=== PATIENT | female | born 1980 | race Caucasian/White ===

== ENCOUNTER 2020-04-14 09:51 | Outpatient (REF) | payer MEDICARE, MEDICAID, SELFPAY | END 2020-04-14 09:52 | disposition home or self-care (01) | LOC: HO.MRI 09:51 | PROVIDERS: PCP Internal Medicine; Visit Provider Internal Medicine Gastroenterology | DX: N28.9 Disorder of kidney and ureter, unspecified (principal) ==

== ENCOUNTER 2020-06-20 12:55 | Outpatient (REF) | payer MEDICARE, MEDICAID, SELFPAY ==
[2020-06-20 13:27] LABS: MANUAL DIFF FLAG NO
[2020-06-20 13:29] LABS: Basophils Percent Auto 0.2 % (0-2); Eosinophils Absolute Auto 0.1 X10*3/uL (0.0-0.4); Hematocrit 39.4 % (37-47); Hemoglobin 13.5 g/dl (12.0-16.0); Imm Gran Pct Auto 0.8 % (0.0-0.4); Lymphocytes Percent Auto 24.9 % (20-40); Mean Corpuscular HGB Conc 34.3 g/dl (31.0-35.0); Mean Corpuscular Hemoglobin 28.6 pg (27.0-33.0); Mean Corpuscular Volume 83.5 fL (80-98); Mean Platelet Volume 9.6 fL (9.4-12.3); Monocytes Absolute Auto 0.6 X10*3/uL (0.1-1.2); Monocytes Percent Auto 5.1 % (2-11); Neutrophils Absolute Auto 8.3 X10*3/uL (2.0-8.3); Platelet Count 303 X10*3/uL (160-400); Red Blood Count 4.72 X10*6/uL (4.20-5.50); White Blood Count 12.2 X10*3/uL (4.8-10.8)
[2020-06-20 13:52] LABS: INTERNATIONAL NORM RATIO 1.1 (0.9-1.1); Prothrombin Time 12.8 SEC (10.8-13.0)
[2020-06-20 14:04] LABS: Alanine Aminotransferase 35 U/L (0-31); Albumin Level 3.8 g/dL (3.5-5.0); Alkaline Phosphatase 87 U/L (39-117); Anion Gap 11 (12-20); Aspartate Amino Transferase 40 U/L (5-31); Bilirubin Total 0.4 mg/dL (0.0-1.0); Blood Urea Nitrogen 10 mg/dL (9-16); Calcium 8.6 mg/dL (8.4-10.2); Carbon Dioxide 25 mmol/L (22-29); Chloride 107 mmol/L (96-108); Estimated Glomerular Filt Rate > 60; Glucose Random 158 mg/dL (60-115); Potassium 3.9 mmol/l (3.3-5.1); Sodium 139 mmol/L (135-145); Total Protein 6.7 g/dL (6.5-8.0)
== END 2020-06-20 12:56 | disposition home or self-care (01) ==
LOC: HO.LAB 12:55
PROVIDERS: PCP Internal Medicine; Visit Provider Internal Medicine Gastroenterology
DX: K75.81 Nonalcoholic steatohepatitis (NASH) (principal); N28.9 Disorder of kidney and ureter, unspecified; R10.32 Left lower quadrant pain
CPT/HCPCS: 36415; 80053; 85025; 85610

== ENCOUNTER 2020-06-23 10:18 | Outpatient (REF) | payer MEDICARE, MEDICAID, SELFPAY ==
--- NOTE | 2020-06-23 10:21 | CT_ITS ---
EXAMINATION: CT ABDOMEN AND PELVIS WITHOUT AND WITH CONTRAST CLINICAL INFORMATION: Rubio, kidney lesion and left lower quadrant pain COMPARISON: Previous abdominal ultrasound most recent January [address] of the abdomen and pelvis most recent August 2019 TECHNIQUE: Multidetector volumetric imaging was performed of the abdomen and pelvis before and after the IV administration of 85 mL of Omnipaque 350 intravenous contrast. Sagittal and coronal reformatted images were obtained on the technologist's workstation. This CT examination was performed using dose optimization techniques as appropriate, variously including the following: *Automated exposure control *Adjustment of mA and/or kV according to patient size (this includes techniques or standardized protocols for targeted exams where dose is matched to indication/reason for exam; i.e. extremities or head) *Use of iterative reconstruction technique DLP: 1979 mGy-cm FINDINGS: LUNG BASES: The visualized lung bases are unremarkable. LIVER, GALLBLADDER, AND BILIARY TREE: The liver is low in attenuation suggestive of fatty infiltration. Liver is enlarged, right lobe measuring 24 cm in length. No focal liver lesion is seen. The gallbladder is unremarkable. PANCREAS: Unremarkable SPLEEN: The spleen is upper normal in size measuring 12.7 cm in length. ADRENAL GLANDS: Unremarkable KIDNEYS AND URETERS: There is a small 1 to 2 mm nonobstructing stone in the lower pole of the left kidney. There is a 1.2 cm lesion exophytic to the upper pole of the left kidney. Hounsfield units precontrast measure 12. Hounsfield units postcontrast measure 64 suggestive of a solid enhancing lesion. This is unchanged from previous exams going back to February 2019.. The right kidney is unremarkable. BLADDER: Not optimally distended. GASTROINTESTINAL TRACT: There is mild diverticulosis of the colon. No evidence of diverticulitis is seen. The small and large bowel are otherwise unremarkable. The appendix is unremarkable. ABDOMINAL WALL: No significant hernia is appreciated. There is a soft tissue nodule in the subcutaneous fat of the lower left pelvis measuring 1.1 cm axial image 89 series 6 that is stable. LYMPH NODES: There are small retroperitoneal lymph nodes that are stable. No enlarged lymph nodes are seen. VASCULAR: Unremarkable PELVIC VISCERA: There is an IUD in the uterus in satisfactory position. OSSEOUS STRUCTURES: There are mild degenerative changes of the spine. CT/CT abdomen pelvis wo/w con IMPRESSION: Enlarged fatty liver. Stable 1.2 cm left renal lesion. Small left lower pole renal stone. Mild diverticulosis of the colon. No evidence of diverticulitis.
[2020-06-23] MEDS: iohexoL 350 MG/ML 100 ML INFUS..BTL IV (11:20)
== END 2020-06-23 10:19 | disposition home or self-care (01) ==
LOC: HO.CT 10:18
PROVIDERS: Visit Provider Internal Medicine Gastroenterology
DX: K75.81 Nonalcoholic steatohepatitis (NASH) (principal); N28.9 Disorder of kidney and ureter, unspecified
CPT/HCPCS: 74178; Q9967

== ENCOUNTER 2020-08-04 10:36 | Outpatient (REF) | payer MEDICARE, MEDICAID, SELFPAY ==
[2020-08-04 11:08] LABS: MANUAL DIFF FLAG NO
[2020-08-04 11:14] LABS: Basophils Absolute Auto 0.1 X10*3/uL (0.0-0.2); Basophils Percent Auto 0.5 % (0-2); Eosinophils Absolute Auto 0.1 X10*3/uL (0.0-0.4); Eosinophils Percent Auto 0.7 % (0-4); Hematocrit 40.6 % (37-47); Hemoglobin 13.5 g/dl (12.0-16.0); Imm Gran Abs Auto 0.09 X10*3/uL (0.00-0.03); Imm Gran Pct Auto 0.8 % (0.0-0.4); Lymphocytes Absolute Auto 2.7 X10*3/uL (1.2-4.9); Lymphocytes Percent Auto 23.1 % (20-40); Mean Corpuscular HGB Conc 33.3 g/dl (31.0-35.0); Mean Corpuscular Hemoglobin 28.2 pg (27.0-33.0); Mean Corpuscular Volume 84.9 fL (80-98); Mean Platelet Volume 9.4 fL (9.4-12.3); Monocytes Absolute Auto 0.5 X10*3/uL (0.1-1.2); Monocytes Percent Auto 4.1 % (2-11); Neutrophils Absolute Auto 8.4 X10*3/uL (2.0-8.3); Neutrophils Percent Auto 70.8 % (45-73); Platelet Count 324 X10*3/uL (160-400); Red Blood Count 4.78 X10*6/uL (4.20-5.50); Red Cell Distribution Width 13.2 % (11.0-16.0); White Blood Count 11.8 X10*3/uL (4.8-10.8)
[2020-08-04 11:49] LABS: Alanine Aminotransferase 38 U/L (0-31); Albumin Level 3.8 g/dL (3.5-5.0); Alkaline Phosphatase 88 U/L (39-117); Anion Gap 10 (12-20); Aspartate Amino Transferase 35 U/L (5-31); Bilirubin Total 0.6 mg/dL (0.0-1.0); Blood Urea Nitrogen 10 mg/dL (9-16); Calcium 8.7 mg/dL (8.4-10.2); Carbon Dioxide 26 mmol/L (22-29); Chloride 105 mmol/L (96-108); Estimated Glomerular Filt Rate > 60; Glucose Random 124 mg/dL (60-115); Potassium 4.3 mmol/l (3.3-5.1); Sodium 137 mmol/L (135-145); Total Protein 6.8 g/dL (6.5-8.0)
== END 2020-08-04 10:37 | disposition home or self-care (01) ==
LOC: HO.LAB 10:36
PROVIDERS: PCP Internal Medicine; Visit Provider Internal Medicine Gastroenterology
DX: N28.9 Disorder of kidney and ureter, unspecified (principal); K75.81 Nonalcoholic steatohepatitis (NASH)
CPT/HCPCS: 36415; 80053; 85025

== ENCOUNTER → 2020-09-05 10:36 | Outpatient (BNVA) | payer MEDICARE, MEDICAID, SELFPAY | PROVIDERS: Visit Provider Internal Medicine Gastroenterology | DX: Z76.89 Persons encountering health services in other specified circumstances (principal) | CPT/HCPCS: 99202; Q3014 ==

== ENCOUNTER 2021-03-05 | Outpatient (REF) | payer MEDICARE, MEDICAID, SELFPAY ==
--- NOTE | ~2021-03-05 | CT_ITS ---
EXAMINATION: CT ABDOMEN AND PELVIS WITHOUT AND WITH CONTRAST CLINICAL INFORMATION: Disorders of kidney and ureter. COMPARISON: None TECHNIQUE: Multidetector volumetric imaging was performed of the abdomen and pelvis before and after the IV administration of 100 mL of Omnipaque 300 intravenous contrast. Sagittal and coronal reformatted images were obtained on the technologist's workstation. This CT examination was performed using dose optimization techniques as appropriate, variously including the following: *Automated exposure control *Adjustment of mA and/or kV according to patient size (this includes techniques or standardized protocols for targeted exams where dose is matched to indication/reason for exam; i.e. extremities or head) *Use of iterative reconstruction technique DLP: 1564 mGy-cm FINDINGS: LUNG BASES: The visualized lung bases are unremarkable. LIVER, GALLBLADDER, AND BILIARY TREE: The liver is normal in size, shape, and attenuation. No focal hepatic lesion or biliary ductal dilatation is present. The gallbladder is unremarkable with no evidence of radiopaque gallstones, gallbladder wall thickening, or obvious pericholecystic inflammatory changes. PANCREAS: Unremarkable SPLEEN: Unremarkable ADRENAL GLANDS: Unremarkable KIDNEYS AND URETERS: The kidneys are normal in size, shape, and attenuation. Postcontrast there is symmetrical bilateral nephrograms without any enhancing renal mass, cyst or hydronephrosis. There is good opacification of both ureters which are normal caliber. No intraluminal filling defect or narrowing seen. BLADDER: Partially opacified bladder appears unremarkable. GASTROINTESTINAL TRACT: There is scattered stool and gas seen throughout the colon without any significant distention. The small bowel loops are normal caliber. The appendix is normal caliber. ABDOMINAL WALL: No significant hernia is appreciated. LYMPH NODES: There are scattered retroperitoneal lymph nodes with the largest lymph node measuring 1.5 cm. VASCULAR: Unremarkable PELVIC VISCERA: The uterus is anteverted with an IUD well located within the endometrial canal. There is a 2.8 x 2.5 cm lesion right adnexa likely complex ovarian cyst measuring 34 Hounsfield units. OSSEOUS STRUCTURES: There are degenerative endplate spondylosis. No lytic or sclerotic process seen. The soft tissues are normal. CT/CT abdomen pelvis wo/w con IMPRESSION: 1. Complex right ovarian cyst. IUD well located within the anteverted uterus. 2. Mild constipation. 3. No radiopaque urolith or enhancing renal mass or hydroureteronephrosis.
[2021-03-05] MEDS: iohexoL 350 MG/ML 100 ML INFUS..BTL 85 ML IV (16:17)
== END 2021-03-05 00:01 | disposition home or self-care (01) ==
LOC: HO.CT
PROVIDERS: PCP Internal Medicine; Visit Provider Urology
DX: N28.9 Disorder of kidney and ureter, unspecified (principal)
CPT/HCPCS: 74178; Q9967

== ENCOUNTER → 2021-03-28 14:07 | Outpatient (BNVA) | payer MEDICARE, MEDICAID, SELFPAY | PROVIDERS: PCP Internal Medicine; Visit Provider Internal Medicine Gastroenterology | DX: Z13.89 Encounter for screening for other disorder (principal) | CPT/HCPCS: Q3014 ==

== ENCOUNTER 2021-04-12 07:49 | Outpatient (REF) | payer MEDICARE, MEDICAID, SELFPAY ==
[2021-04-12 08:11] LABS: MANUAL DIFF FLAG NO
[2021-04-12 08:24] LABS: Basophils Absolute Auto 0.1 X10*3/uL (0.0-0.2); Basophils Percent Auto 0.5 % (0-2); Eosinophils Absolute Auto 0.1 X10*3/uL (0.0-0.4); Eosinophils Percent Auto 0.9 % (0-4); Hematocrit 39.8 % (37-47); Hemoglobin 13.4 g/dl (12.0-16.0); Imm Gran Abs Auto 0.07 X10*3/uL (0.00-0.03); Imm Gran Pct Auto 0.7 % (0.0-0.4); Lymphocytes Absolute Auto 2.6 X10*3/uL (1.2-4.9); Lymphocytes Percent Auto 25.4 % (20-40); Mean Corpuscular HGB Conc 33.7 g/dl (31.0-35.0); Mean Corpuscular Hemoglobin 28.3 pg (27.0-33.0); Mean Corpuscular Volume 84.1 fL (80-98); Mean Platelet Volume 9.5 fL (9.4-12.3); Monocytes Absolute Auto 0.5 X10*3/uL (0.1-1.2); Monocytes Percent Auto 5.4 % (2-11); Neutrophils Absolute Auto 6.8 X10*3/uL (2.0-8.3); Neutrophils Percent Auto 67.1 % (45-73); Platelet Count 286 X10*3/uL (160-400); Red Blood Count 4.73 X10*6/uL (4.20-5.50); Red Cell Distribution Width 13.1 % (11.0-16.0); White Blood Count 10.1 X10*3/uL (4.8-10.8)
[2021-04-12 08:29] LABS: Estimated Average Glucose 117 mg/dL; Hemoglobin A1c % 5.7 %
[2021-04-12 08:53] LABS: Alanine Aminotransferase 40 U/L (0-31); Albumin Level 3.8 g/dL (3.5-5.0); Alkaline Phosphatase 93 U/L (39-117); Anion Gap 13 (12-20); Aspartate Amino Transferase 38 U/L (5-31); Bilirubin Total 0.5 mg/dL (0.0-1.0); Blood Urea Nitrogen 10 mg/dL (9-16); Calcium 9.2 mg/dL (8.4-10.2); Carbon Dioxide 24 mmol/L (22-29); Chloride 108 mmol/L (96-108); Cholesterol 168 mg/dL; Estimated Glomerular Filt Rate > 60; Glucose Fasting 117 mg/dL (60-99); HDL Cholesterol 43 mg/dL; LDL Cholesterol Calculated 110 mg/dl; Potassium 4.2 mmol/L (3.3-5.1); Sodium 141 mmol/L (135-145); Total Protein 6.9 g/dL (6.5-8.0); Triglycerides 78 mg/dL
[2021-04-12 09:09] LABS: TSH reflex Free T4 2.16 uIU/mL (0.32-4.0)
[2021-04-12 09:29] LABS: Erythrocyte Sedimentation Rate 27 MM/HR (0-20)
[2021-04-12 10:18] LABS: Appearance Urine HAZY; Color Urine YELLOW; Glucose Urine UA NEG (NEG); Leukocyte Esterase Urine NEG (NEG); Nitrite Urine NEG (NEG); Specific Gravity - Urine 1.025 (1.005-1.025); UACC Culture Trigger NO; Urine Blood 2+ (NEG); Urine Ketones NEG (NEG); Urine Protein NEG (NEG-TRACE)
[2021-04-12 10:33] LABS: Bacteria Urine 2+ /LPF; Mucus Urine 2+ /LPF; Squamous Epithelial Cell Urine 3+ /LPF
[2021-04-19 00:16] LABS: Vitamin A 22 mcg/dL (38-98)
== END 2021-04-12 07:50 | disposition home or self-care (01) ==
LOC: HO.LAB 07:49
PROVIDERS: Absent Provider Internal Medicine Gastroenterology; PCP Internal Medicine; Visit Provider Internal Medicine
DX: Z00.00 Encounter for general adult medical examination without abnormal findings (principal); R94.5 Abnormal results of liver function studies; E66.01 Morbid (severe) obesity due to excess calories; Z68.42 Body mass index [BMI] 45.0-49.9, adult; E28.2 Polycystic ovarian syndrome; R73.01 Impaired fasting glucose; G43.909 Migraine, unspecified, not intractable, without status migrainosus
CPT/HCPCS: 36415; 80053; 80061; 81001; 81003; 83036; 84443; 84590; 85025; 85652

== ENCOUNTER → 2021-09-28 11:17 | Outpatient (BNVA) | payer MEDICARE, MEDICAID, SELFPAY | PROVIDERS: PCP Internal Medicine; Visit Provider Internal Medicine Gastroenterology | DX: Z13.89 Encounter for screening for other disorder (principal) | CPT/HCPCS: Q3014 ==

== ENCOUNTER 2021-10-23 13:12 | Outpatient (REF) | payer MEDICARE, MEDICAID, SELFPAY ==
[2021-10-24 03:12] LABS: CT PCR NOT DETECTED (Not Detect.); NG PCR NOT DETECTED (Not Detect.)
== END 2021-10-23 13:13 | disposition home or self-care (01) ==
LOC: HO.LAB 13:12
PROVIDERS: PCP Internal Medicine; Visit Provider Obstetrics & Gynecology
DX: R10.2 Pelvic and perineal pain (principal); R31.29 Other microscopic hematuria; N83.299 Other ovarian cyst, unspecified side
CPT/HCPCS: 87086; 87491; 87591; 99202

== ENCOUNTER → 2021-11-07 09:14 | Outpatient (BNVA) | payer MEDICARE, MEDICAID, SELFPAY | PROVIDERS: PCP Internal Medicine; Visit Provider Obstetrics & Gynecology | DX: R31.29 Other microscopic hematuria (principal) | CPT/HCPCS: 99212 ==

== ENCOUNTER 2021-11-19 10:20 | Outpatient (REF) | payer MEDICARE, MEDICAID, SELFPAY ==
--- NOTE | ~2021-11-19 | US_ITS ---
EXAMINATION: US PELVIS CLINICAL INFORMATION: Pelvic and perineal pain COMPARISON: Previous CT of the abdomen and pelvis most recent February 2021 pelvic ultrasound July 2018 TECHNIQUE: Ultrasound of the pelvis is performed using both transabdominal and transvaginal transducers along with Doppler. Transvaginal imaging is performed due to inadequate visualization transabdominally. Exam is limited due to patient body habitus. FINDINGS: The uterus is anteverted and measures 9.6 x 3.8 x 3.8 cm in dimension. No focal uterine lesion is seen. There is an IUD in the uterus in satisfactory position. Endometrial thickness is normal measuring 0.7 cm. There are nabothian cysts in the cervix. The right ovary measures 5.5 x 4.2 x 4.6 cm. There are 2 right ovarian cysts measuring 4.5 x 2.4 x 3.3 cm and 2.2 x 1.7 x 1.7 cm. The left ovary is not seen. There is no fluid in the pelvis. US/US pelvic and transvaginal IMPRESSION: Limited exam. IUD in the uterus in satisfactory position. Enlarged right ovary and 2 right ovarian cysts, largest measuring 4.5 x 2.4 x 3.3 cm.
== END 2021-11-19 10:21 | disposition home or self-care (01) ==
LOC: HO.US 10:20
PROVIDERS: Visit Provider Obstetrics & Gynecology
DX: R10.2 Pelvic and perineal pain (principal); N83.299 Other ovarian cyst, unspecified side
CPT/HCPCS: 76830; 76856

== ENCOUNTER → 2021-12-03 11:51 | Outpatient (BNVA) | payer MEDICARE, MEDICAID, SELFPAY | PROVIDERS: Visit Provider Obstetrics & Gynecology | DX: N83.209 Unspecified ovarian cyst, unspecified side (principal) | CPT/HCPCS: Q3014 ==

== ENCOUNTER → 2022-01-04 14:10 | Outpatient (BNVA) | payer MEDICARE, MEDICAID, SELFPAY | PROVIDERS: PCP Internal Medicine | DX: R31.29 Other microscopic hematuria (principal) | CPT/HCPCS: 99202 ==

== ENCOUNTER → 2022-01-28 10:18 | Outpatient (BNVA) | payer MEDICARE, MEDICAID, SELFPAY | PROVIDERS: PCP Internal Medicine | DX: R31.29 Other microscopic hematuria (principal) | CPT/HCPCS: Q3014 ==

== ENCOUNTER 2022-05-10 11:14 | Outpatient (REF) | payer MEDICARE, MEDICAID, SELFPAY ==
[2022-05-10 11:25] LABS: MANUAL DIFF FLAG NO
[2022-05-10 12:15] LABS: Basophils Absolute Auto 0.1 X10*3/uL (0.0-0.2); Basophils Percent Auto 0.6 % (0-2); Eosinophils Absolute Auto 0.1 X10*3/uL (0.0-0.4); Eosinophils Percent Auto 0.7 % (0-4); Hematocrit 40.2 % (37.0-47.0); Hemoglobin 13.4 g/dl (12.0-16.0); Imm Gran Pct Auto 0.9 % (0.0-0.4); Lymphocytes Absolute Auto 2.8 X10*3/uL (1.2-4.9); Lymphocytes Percent Auto 26.1 % (20-40); Mean Corpuscular HGB Conc 33.3 g/dl (31.0-35.0); Mean Corpuscular Hemoglobin 28.7 pg (27.0-33.0); Mean Corpuscular Volume 86.1 fL (80.0-98.0); Mean Platelet Volume 9.8 fL (9.4-12.3); Monocytes Absolute Auto 0.4 X10*3/uL (0.1-1.2); Neutrophils Absolute Auto 7.3 x10*3/uL (2.0-8.3); Neutrophils Percent Auto 67.7 % (45-73); Platelet Count 308 X10*3/uL (160-400); Red Blood Count 4.67 X10*6/uL (4.20-5.50); Red Cell Distribution Width 13.2 % (11.0-16.0); White Blood Count 10.8 X10*3/uL (4.8-10.8)
[2022-05-10 12:27] LABS: Estimated Average Glucose 120 mg/dL; Hemoglobin A1c % 5.8 %
[2022-05-10 12:53] LABS: Alanine Aminotransferase 46 U/L (0-31); Albumin Level 3.9 g/dL (3.5-5.0); Alkaline Phosphatase 89 U/L (39-117); Anion Gap 14 (12-20); Aspartate Amino Transferase 49 U/L (5-31); Bilirubin Total 0.4 mg/dL (0.0-1.0); Blood Urea Nitrogen 12 mg/dL (9-16); Calcium 9.4 mg/dL (8.4-10.2); Carbon Dioxide 26 mmol/L (22-29); Chloride 105 mmol/L (96-108); Cholesterol 191 mg/dL; Estimated Glomerular Filt Rate > 60; Glucose Fasting 94 mg/dL (60-99); HDL Cholesterol 49 mg/dL; LDL Cholesterol Calculated 126 mg/dl; Potassium 4.3 mmol/L (3.3-5.1); Sodium 141 mmol/L (135-145); Total Protein 7.1 g/dL (6.5-8.0); Triglycerides 81 mg/dL
[2022-05-10 13:04] LABS: TSH reflex Free T4 2.51 uIU/mL (0.32-4.0); Vitamin D 25-OH Total 25.7 ng/mL (>30)
== END 2022-05-10 11:15 | disposition home or self-care (01) ==
LOC: HO.LAB 11:14
PROVIDERS: PCP Internal Medicine; Visit Provider Internal Medicine
DX: E28.2 Polycystic ovarian syndrome (principal); G43.909 Migraine, unspecified, not intractable, without status migrainosus; R73.01 Impaired fasting glucose; E55.9 Vitamin D deficiency, unspecified; E78.00 Pure hypercholesterolemia, unspecified
CPT/HCPCS: 36415; 80053; 80061; 82306; 83036; 84443; 85025

== ENCOUNTER 2022-05-24 08:50 | Outpatient (REF) | payer MEDICARE, MEDICAID, SELFPAY ==
[2022-05-24 17:04] LABS: Urine Cytology See Pathology rpt
== END 2022-05-24 08:51 | disposition home or self-care (01) ==
LOC: HO.LAB 08:50
PROVIDERS: PCP Internal Medicine; Visit Provider Urology
DX: Z00.00 Encounter for general adult medical examination without abnormal findings (principal); R31.29 Other microscopic hematuria; R35.0 Frequency of micturition; N83.291 Other ovarian cyst, right side
CPT/HCPCS: 51798; 88112; 99212

== ENCOUNTER 2022-06-04 08:33 | Day surgery (SDC) | payer MEDICARE, MEDICAID, SELFPAY ==
[2022-05-28 11:18] VITALS: BMI 51.5
--- NOTE | 2022-06-03 09:09 | HO.ANESPROP2 ---
Documented by User: Deborah Hayes NP 06/03/22 09:10 HPI - Anesthesia Eval Consult details Narrative: 42yo F for Cystoscopy Hydrodistention of Bladder PMFSH Active Problems Active Problems: All Active Problems (Updated 05/28/22 @ 11:17 by Renetta Lara, RN) Nonalcoholic steatohepatitis ([place]) (Acute) Kidney lesion (Acute) LLQ abdominal pain (Acute) Ovarian cyst (Acute) Lumbar spondylosis (Acute) COVID-19 (Acute) Complex ovarian cyst (Acute) Pelvic pain (Acute) Microscopic hematuria (Acute) Medicare annual wellness visit, initial (Acute) Urge incontinence of urine (Acute) Urinary frequency (Acute) Morbid obesity with BMI of 50.0-59.9, adult (Acute) Allergic rhinitis (Acute) Migraine (Acute) Morbid obesity with BMI of 45.0-49.9, adult (Acute) Depression (Acute) Anxiety (Acute) Insomnia (Acute) Elevated LFTs (Acute) PCOS (polycystic ovarian syndrome) (Acute) Impaired fasting glucose (Acute) Past Medical History Medical History Allergic rhinitis Anxiety Depression Elevated LFTs History of COVID-19 Impaired fasting glucose Insomnia Migraine Morbid obesity with BMI of 45.0-49.9, adult Morbid obesity with BMI of 50.0-59.9, adult IAN (obstructive sleep apnea) PCOS (polycystic ovarian syndrome) Family History Family History Father No problems noted. Mother Diverticulitis Other Substance abuse Surgical History Surgical History (Updated 05/28/22 @ 11:07 by Renetta Lara RN) History of esophagogastroduodenoscopy (EGD) Hx of colonoscopy Previous section Social History Social History Household Members: Children Housing: Apartment Are you a primary medicare sales executive to a significant other at home: No Do you presently have visiting nurse or other home services: No Alcohol intake: former Patient Tobacco Use Status: Never used Tobacco Second Hand Smoke Exposure: No Use of substances other than those prescribed or required for medical reasons: No Have you been hit, kicked, punched, or otherwise hurt by someone within the past year? If so, by whom?: No Are you DNR?: No Advance Directives: Yes Advance Directives Information Provided: No Advance Directives on File: Yes Advance Directives Date on File: 04/14/20 Recently lost weight without trying: No Eating poorly because of decreased appetite: No Nutrition Risks: No Nutritional Risk : No Poor oral hygiene: No service: No Current occupational status: employed Meds Allergies Allergy/AdvReac Type Severity Reaction Status Date / Time No Known Allergies Allergy Verified 05/28/22 10:34 Home Medications Medication Instructions Recorded Confirmed Last Taken Type levonorgestrel 20 mcg/24 hours (8 intrauterine 10/23/21 05/24/22 Unknown History yrs) 52 mg intrauterine device (Mirena) Exam Exam Date and Time: June 03, 2022 0909 Height,Weight and Vital Signs: Height 5 ft 4 in Weight 136.078 kg Pertinent Lab Results Pertinent Lab Results: Laboratory Tests 05/10/22 05/10/22 11:24 11:24 WBC 10.8 Hgb 13.4 Hct 40.2 Plt Count 308 Sodium 141 Potassium 4.3 Chloride 105 Carbon Dioxide 26 BUN 12 Creatinine 0.74 Assessment and Plan Assessment Anesthesia Assessment: Chart Reviewed Documented by User: Nikki Ann MD 06/04/22 11:39 [facility] Past Medical History Medical History Allergic rhinitis Anxiety Depression Elevated LFTs History of COVID-19 Impaired fasting glucose Insomnia Migraine Morbid obesity with BMI of 45.0-49.9, adult Morbid obesity with BMI of 50.0-59.9, adult IAN (obstructive sleep apnea) PCOS (polycystic ovarian syndrome) Functional capacity: independent ambulation Patient : No Family History Family History Father No problems noted. Mother Diverticulitis Other Substance abuse Family history of problems with anesthesia: No Surgical History Surgical History (Updated 05/28/22 @ 11:07 by Renetta Lara RN) History of esophagogastroduodenoscopy (EGD) Hx of colonoscopy Previous section Social History Social History Household Members: Children Housing: Apartment Are you a primary medicare sales executive to a significant other at home: No Do you presently have visiting nurse or other home services: No Alcohol intake: former Patient Tobacco Use Status: Never used Tobacco Second Hand Smoke Exposure: No Use of substances other than those prescribed or required for medical reasons: No Have you been hit, kicked, punched, or otherwise hurt by someone within the past year? If so, by whom?: No Are you DNR?: No Advance Directives: Yes Advance Directives Information Provided: No Advance Directives on File: Yes Advance Directives Date on File: 04/14/20 Recently lost weight without trying: No Eating poorly because of decreased appetite: No Nutrition Risks: No Nutritional Risk : No Poor oral hygiene: No service: No Current occupational status: employed Meds Allergies Allergy/AdvReac Type Severity Reaction Status Date / Time No Known Allergies Allergy Verified 05/28/22 10:34 Home Medications Medication Instructions Recorded Confirmed Last Taken Type levonorgestrel 20 mcg/24 hours (8 intrauterine 10/23/21 05/24/22 Unknown History yrs) 52 mg intrauterine device (Mirena) Exam Airway TM Dist: >3cm Neck ROM: Full Heart: RRR Lungs: CTA Assessment and Plan Final Anesthetic Review Family History of Problems with Anesthesia: No ASA Class: III Final Preanesthetic Review: Meds/Allgs Chart Reviewed and Anes Risks/Benef Reviewed Patient Risk: Intermediate Procedure Risk: Low Anesthetic Plan Anesthetic Plan: GA Disposition: Standard PACU
[2022-06-04] VITALS (8 sets, daily range): BP systolic 128–146; BP diastolic 77–89; PULSE 66–81; RESP 14–20; TEMP 36.3–36.6; O2SAT 91–99
[2022-06-04 08:53] LABS: UPreg QC Valid YES; Urine Pregnancy NEGATIVE (NEGATIVE)
[2022-06-04 09:37] LABS: Glucose, Whole Blood 126 mg/dL (60-115)
[2022-06-04] MEDS: Lactated Ringers 1,000 ML 100 ML IVCONT (09:50)
--- NOTE | 2022-06-04 10:56 | MHC.SHP ---
Pre-Procedural Eval Section A Date of Service: 06/04/22 The patient is an INPATIENT: No Section B Chief Complaint: Urge incontinence Allergies: Allergies Allergy/AdvReac Type Severity Reaction Status Date / Time No Known Allergies Allergy Verified 05/28/22 10:34 Plan I have reviewed the history and physical and performed a pertinent physical examination on my patient. No changes have occurred unless specified. Microscopic hematuria: ?Code(s): R31.29 - Other microscopic hematuria Plan---Cystoscopy hydrodistension. Discussed risks to include but not limited to, blood in the urine, burning with urination, urgency.
--- NOTE | 2022-06-04 12:13 | P.OP_ITS ---
Operative Note Operative Note Date of Service: 06/04/22 Narrative: PREOP DIAGNOSIS: Urinary frequency, microscopic hematuria POSTOP DIAGNOSIS: Urinary frequency, microscopic hematuria, PROCEDURE: CYSTOSCOPY HYDRODISTENTION Anesthesia: General Details of procedure: The patient was brought into the operating room placed on the OR table in supine position. 2 g of Ancef IV. General anesthesia was administered. The patient was repositioned into lithotomy position, prepped and draped in the usual sterile fashion. Time-out was done per protocol. A 22 fr cystoscope was placed transurethrally into the bladder. Urine was drained from the bladder measuring 300 mL.The right and left ureteral orifices were visualized. The entire bladder was visualized. There were no suspicious bladder lesions seen. The bladder was filled with sterile water at 80 cm of water pressure under gravity. The bladder was distended for 2 minutes. Bladder capacity measured 800 mL. Revisualization of the bladder, noted no glomerulations. No [place] ulcerations. The bladder was refilled with sterile water again at 80 cm of water pressure under gravity. The bladder was distended for 3 minutes. The fluid was drained from the bladder and measured 85 0 mL. The cystoscope was removed. 2% lidocaine urojet was passed transurethrally, Solution of (1% lidocaine plain, 15 mL, 0.5 % Marcaine 15 mL) instilled transurethrally into the bladder. The patient was brought out of anesthesia and taken to recovery in stable condition. Complications: None Drains: none
--- NOTE | 2022-06-04 13:11 | HO.POSTANES ---
Post Anesthesia Evaluation Post Anesthesia Evaluation Vital Signs: Vital Signs Temp Pulse Resp BP Pulse Ox O2 Del Method O2 Flow Rate 06/04/22 12:13 75 17 128/77 98 Nasal Cannula 2 06/04/22 12:09 78 14 139/87 98 Nasal Cannula 2 06/04/22 12:04 66 16 136/85 96 Nasal Cannula 2 06/04/22 11:59 97.5 F 76 16 139/84 96 Nasal Cannula 2 06/04/22 09:29 97.3 F 75 18 146/86 H 99 Room Air Anesthesia: General LMA Mental Status: Awake Pain Control: Satisfactory Nausea/Vomiting: None Hydration: Adequate Anesthesia-Related Issues: No Anes. Related Issues
== END 2022-06-04 14:09 | disposition home or self-care (01) ==
PROVIDERS: Nurse Practitioner; PCP Internal Medicine; Visit Provider Urology
PROC: 0T7B7ZZ Dilation of Bladder, Via Natural or Artificial Opening (ICD-10-PCS; CPT 52000; principal; 2022-06-04 10:20)
DX: R31.29 Other microscopic hematuria (principal); R35.0 Frequency of micturition; N39.41 Urge incontinence; R73.01 Impaired fasting glucose
CPT/HCPCS: 52000; 81025; 82947; J0690; J1100; J2250; J2405; J2795; J3010

== ENCOUNTER → 2022-07-18 09:14 | Outpatient (BNVA) | payer MEDICARE, MEDICAID, SELFPAY | PROVIDERS: PCP Internal Medicine; Visit Provider Urology | DX: R31.29 Other microscopic hematuria (principal); N39.41 Urge incontinence; R35.0 Frequency of micturition | CPT/HCPCS: 51798; 99212 ==

== ENCOUNTER 2022-08-06 08:14 | Outpatient (REF) | payer MEDICARE, MEDICAID, SELFPAY ==
[2022-08-12 03:04] LABS: HPV 16 RNA NOT DETECTED (NOT DETECTED); HPV mRNA E6/E7 rflx Detected (Not Detected)
== END 2022-08-06 08:15 | disposition home or self-care (01) ==
LOC: HO.LNP 08:14
PROVIDERS: PCP Internal Medicine; Visit Provider Obstetrics & Gynecology
DX: Z01.419 Encounter for gynecological examination (general) (routine) without abnormal findings (principal); Z11.51 Encounter for screening for human papillomavirus (HPV)
CPT/HCPCS: 87624; 87625; 88142

== ENCOUNTER 2022-08-22 10:59 | Outpatient (REF) | payer MEDICARE, MEDICAID, SELFPAY ==
--- NOTE | ~2022-08-22 | MM_ITS ---
EXAMINATION: MM SCREENING DIGITAL BREAST TOMOSYNTHESIS, BILATERAL CLINICAL INFORMATION: Screening. Asymptomatic. The lifetime risk of breast cancer based on the Tyrer-Cuzick Model is 9.5%. COMPARISON: Mammography: None TECHNIQUE: Digital breast tomosynthesis is performed in both the craniocaudal and mediolateral oblique views along with computer-aided detection (CAD). Synthesized 2D images are generated from the tomosynthesis. FINDINGS: There are scattered areas of fibroglandular density (ACR BI-RADS breast composition Category b). There are a few intramammary lymph node seen within the right breast. Within the lateral aspect of the left breast, there is a lobular density measuring approximately 1.4 x 0.8 cm in size. Ultrasound examination of this lesion is recommended. MM/MM tomosynthesis screening BI IMPRESSION: Left breast lobular density laterally for which ultrasound is recommended. ASSESSMENT: BI-RADS 0: Incomplete - Need Additional Imaging Evaluation RECOMMENDATION: Targeted left breast ultrasound.
== END 2022-08-22 11:00 | disposition home or self-care (01) ==
LOC: HO.MAMMO 10:59
PROVIDERS: PCP Internal Medicine; Visit Provider Obstetrics & Gynecology
DX: Z12.31 Encounter for screening mammogram for malignant neoplasm of breast (principal)
CPT/HCPCS: 77063; 77067

== ENCOUNTER 2022-08-27 12:41 | Outpatient (REF) | payer MEDICARE, MEDICAID, SELFPAY ==
--- NOTE | ~2022-08-27 | US_ITS ---
EXAMINATION: US DIAGNOSTIC ULTRASOUND BREAST, LEFT CLINICAL INFORMATION: Recall from baseline mammography for smooth oval nodule mid 3:00 left breast. COMPARISON: Baseline mammography 08/22/2022. TECHNIQUE: Ultrasound left breast is targeted to the outer quadrants using grayscale imaging and color Doppler without and with harmonics. FINDINGS: There are grouped/clustered microcysts versus a complicated cyst with multiple fine internal avascular septations 3:00 position mid depth measuring 0.8 x 1.4 cm. The size and location correspond to the baseline mammography. There is increased through-transmission of sound. No associated color flow. There is no solid mass or architectural abnormality. Results are discussed with the patient at time of visit. US/US breast LT limited IMPRESSION: Grouped microcysts versus complicated cyst 3:00 position mid depth measuring 0.8 x 1.4 cm. ASSESSMENT: BI-RADS 3: Probably Benign RECOMMENDATION: Targeted left breast ultrasound in 6 months. This patient's information was entered into a reminder system with a target due date for their next mammogram.
== END 2022-08-27 12:42 | disposition home or self-care (01) ==
LOC: HO.MAMMO 12:41
PROVIDERS: PCP Internal Medicine; Visit Provider Obstetrics & Gynecology
DX: R92.2 Inconclusive mammogram (principal)
CPT/HCPCS: 76642

== ENCOUNTER 2022-09-16 08:50 | Outpatient (REF) | payer MEDICARE, MEDICAID, SELFPAY | END 2022-09-16 08:51 | disposition home or self-care (01) | LOC: HO.LNP 08:50 | PROVIDERS: PCP Internal Medicine; Visit Provider Obstetrics & Gynecology | DX: R87.612 Low grade squamous intraepithelial lesion on cytologic smear of cervix (LGSIL) (principal); Z20.2 Contact with and (suspected) exposure to infections with a predominantly sexual mode of transmission | CPT/HCPCS: 57454; 81025; 88305 ==

== ENCOUNTER → 2022-12-12 11:33 | Outpatient (BNVA) | payer MEDICARE, MEDICAID, SELFPAY | PROVIDERS: PCP Internal Medicine; Visit Provider Obstetrics & Gynecology | DX: N87.0 Mild cervical dysplasia (principal) | CPT/HCPCS: 99212 ==

== ENCOUNTER 2023-01-13 10:15 | Outpatient (REF) | payer MEDICARE, MEDICAID, SELFPAY | END 2023-01-13 10:16 | disposition home or self-care (01) | LOC: HO.US 10:15 | PROVIDERS: PCP Internal Medicine; Visit Provider Urology | DX: R31.29 Other microscopic hematuria (principal); R35.0 Frequency of micturition | CPT/HCPCS: 76775 ==

== ENCOUNTER 2023-01-16 11:16 | Outpatient (AMB) | payer MEDICARE, MEDICAID, SELFPAY ==
--- NOTE | 2023-01-16 08:38 | MHC.OFFVIS ---
Intake Intake Visit Reasons: 6m follow up/US(US?) Intake Note: Patient presents today for tele visit follow up ultrasound results Meds: Oxybutynin Antibiotic: None Blood Thinner: None Mds Nurse Required: No Allergies No Known Allergies Allergy (Verified 01/16/23 11:19) HPI HPI Comments History of Present Illness Details Erin is a 42-year-old female who is for tele-heatl to discuss US results and follow-up of LUTS of urgency. 01/16/23-- The patient was last seen on 07/18/22-- at that time oxybutynin was increased to 10 mg BID from QD. Alternative treatment options were also discussed including Botox bladder injection. The patient is taking oxybutynin with benefits in her LUTS of urgency. The patient states that three years ago she was told by her OB-PRICING COORDINATOR that she has pre-cancerous cells on PAP. Renal US results reviewed?01/13/23-- The report is yet to be officially transcribed by the radiologist. In review of the images it appears to be WNL. LV?07/18/22--Erin is a 42 year old female followed for persistent Microscopic Hematuria and LUTS urgency leakage h/o ovarian cyst, has seen sole dyer in the past She is on oxybutynin 10 mg c/o's dry mouth-- recommended OTC biotene She is s/p cysto/hydro 06/04/22- here today post procedure: Cysto findings--no suspicious bladder lesions, no glomerulations. Patient complains of persistent urgency in urine leakage on daily oxybutynin. UA - blood trace, leuk neg, bladder scan PVR 12 mL plan increase oxybutynin 10 mg from daily to b.i.d.; also discussed alternative options to include Botox bladder injection (currently patient not interested, wants to exhaust medication options first) fu 6 months, renal u/s prior Imaging 03/05/21 -CT [facility]--kidneys WNL, no stones. 01/16/23--Plan: Continue oxybutynin 10 mg BID. Office follow-up after 6 months. [facility] Medical History Allergic rhinitis Anxiety Depression Elevated LFTs History of COVID-19 Impaired fasting glucose Insomnia Migraine Morbid obesity with BMI of 45.0-49.9, adult Morbid obesity with BMI of 50.0-59.9, adult IAN (obstructive sleep apnea) PCOS (polycystic ovarian syndrome) Surgical History History of esophagogastroduodenoscopy (EGD) Hx of colonoscopy Previous section Family History Father No problems noted. Mother Diverticulitis Other Substance abuse Social History Household Members: Children Housing: Apartment Are you a primary rn progressive care to a significant other at home: No Do you presently have visiting nurse or other home services: No Alcohol intake: former Patient Tobacco Use Status: Never used Tobacco Second Hand Smoke Exposure: No Advance Directives Date on File: 04/14/20 service: No Current occupational status: employed Female Reproductive History Menstrual Age of Menarche: 12 Review of Systems Const All systems reviewed & are unremarkable except as noted in HPI and below Reports no additional complaints Eyes Reports no additional complaints ENT Denies neck pain Card Denies dyspnea Resp Denies cough and Denies dyspnea GI Denies constipation Reports no additional complaints Musc Reports no additional complaints and Denies neck pain Skin/Breast Denies rash and Denies unusual bruising Neuro Reports no additional complaints Psych Reports no additional complaints Endo Reports no additional complaints Jonathan/Lymph Reports no additional complaints Aller/Immun Reports no additional complaints Assessment & Plan Assessment & Plan (1) Microscopic hematuria: Code(s): R31.29 - Other microscopic hematuria (2) Urge incontinence of urine: Code(s): N39.41 - Urge incontinence (3) Urinary frequency: Code(s): R35.0 - Frequency of micturition Plan Continue oxybutynin 10 mg BID. Office follow-up after 6 months. Patient Instructions: The patient had an opportunity to ask questions regarding treatment plan. All questions were answered. Imaging results were discussed and reviewed in detail. No major barriers to understanding were identified. The patient expressed understanding and agreement with the above treatment plan. The patient is aware they should contact our office by phone for worsening of their current condition or the appearance of new symptoms. Compliance is encouraged with any medications and followup testing that is ordered. It is a privilege to be allowed the opportunity to participate in the urologic care of your patient. If you have any questions or concerns regarding treatment for the above conditions please do not hesitate to contact me. The office telephone contact is [phone]. This note is constructed in part using voice recognition software. While every effort has been made to ensure accuracy power hair clipper errors may have been included. Yours sincerely, Pipe Pretty MD Telehealth Telehealth Location of provider rendering services: practice address Location of patient: address on file Patient Identification confirmed using: Name, : Yes Telehealth method: voice only Patient verbally consented to treatment: Yes Patient verbally consented to billing insurance company: Yes Patient informed of any privacy concerns related to visit: Yes Minutes spent on Phone/Video with Pt.: 15 Coding Level of Care Code Tele Est Pt Level 3 (04349) Diagnoses Microscopic hematuria R31.29 Urge incontinence of urine N39.41 Urinary frequency R35.0
== END 2023-01-16 11:56 | disposition home or self-care (01) ==
LOC: HO.HUSH 11:16
PROVIDERS: PCP Internal Medicine; Visit Provider Urology
DX: R31.29 Other microscopic hematuria (principal); N39.41 Urge incontinence; R35.0 Frequency of micturition
CPT/HCPCS: 99442

== ENCOUNTER → 2023-01-16 11:16 | Outpatient (BNVA) | payer MEDICARE, MEDICAID, SELFPAY | PROVIDERS: PCP Internal Medicine; Visit Provider Urology ==

== ENCOUNTER 2023-02-26 13:14 | Outpatient (REF) | payer MEDICARE, MEDICAID, SELFPAY ==
--- NOTE | ~2023-02-26 | US_ITS ---
EXAMINATION: US DIAGNOSTIC ULTRASOUND BREAST, LEFT CLINICAL INFORMATION: 6 month Follow-up complicated/cluster of cysts left breast 3:00 axis, 8 cm from the nipple.. COMPARISON: 08/27/2022. TECHNIQUE: Ultrasound of the breast is performed with real-time lopez scale imaging and color Doppler. FINDINGS: There is a stable complicated/cluster of cysts at the 3:00 axis left breast, 8 cm from the nipple, measuring approximately 1.2 x 0.7 x 0.8 cm. There is good through transmission. No internal color Doppler flow. Finding remains probably benign. Results were discussed with the patient at time of visit. US/US breast LT limited mamm only IMPRESSION: Probably benign cluster of cysts left breast 3:00 axis. Recommend 6 month follow-up interval left breast targeted ultrasound when the patient is due for bilateral screening mammography. ASSESSMENT: BI-RADS 3: Probably Benign RECOMMENDATION: Diagnostic left ultrasound in 6 months. This patient's information was entered into a reminder system with a target due date for their next mammogram.
== END 2023-02-26 13:15 | disposition home or self-care (01) ==
LOC: HO.MAMMO 13:14
PROVIDERS: PCP Internal Medicine; Visit Provider Obstetrics & Gynecology
DX: R92.2 Inconclusive mammogram (principal)
CPT/HCPCS: 76642

== ENCOUNTER → 2023-02-26 13:30 | Outpatient (BNV) | payer MEDICARE, MEDICAID, SELFPAY | PROVIDERS: PCP Internal Medicine; Visit Provider Radiology Diagnostic Radiology | DX: N60.12 Diffuse cystic mastopathy of left breast (principal) | CPT/HCPCS: 76642 ==

== ENCOUNTER 2023-04-07 11:00 | Outpatient (AMB) | payer MEDICARE, MEDICAID, SELFPAY ==
[2023-04-07 11:11] VITALS: BP 120/74; BMI 51.0
--- NOTE | 2023-04-07 11:11 | MHC.OFFVIS ---
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 Records were faxed but do not include anything related to history of abnormal Pap smear or LEEP. 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 Mother Diverticulitis Other Substance abuse Social History Household Members: Children Housing: Apartment Are you a primary client care representative to a significant other at home: No Do you presently have visiting nurse or other home services: No Alcohol intake: former Patient Tobacco Use Status: Never used Tobacco Second Hand Smoke Exposure: No Advance Directives Date on File: 04/14/20 service: No Current occupational status: employed Female Reproductive History Menstrual Age of Menarche: 12 Review of Systems Const All systems reviewed & are unremarkable except as noted in HPI and below Reports as per HPI and Reports no additional complaints GI Reports no additional complaints Reports no additional complaints Physical Exam Vital Signs: Last Vital Signs BP 120/74 04/07/23 11:11 BMI result Body Mass Index 51.0 Assessment & Plan Assessment & Plan (1) Dysplasia of cervix, low grade (JUNAID 1): Code(s): N87.0 - Mild cervical dysplasia Plan: Discussed with the patient the lack of availability of abnormal Pap smears records for operative note given the patient's history of severe cervical dysplasia status post LEEP in 2018 followed by no Pap smear till 08/05 which showed LGSIL/ HPV positive, followed by colpo biopsy, showing JUNAID 1, the recommended next step in the management is to proceed with co testing 08/06. All questions answered, the patient verbalized understanding Coding Level of Care Code Est Pt Level 3 (98889) Diagnoses Dysplasia of cervix, low grade (JUNAID 1) N87.0
== END 2023-04-07 11:54 | disposition home or self-care (01) ==
PROVIDERS: PCP Internal Medicine; Visit Provider Obstetrics & Gynecology
DX: N87.0 Mild cervical dysplasia (principal)
CPT/HCPCS: 99213

== ENCOUNTER → 2023-04-07 11:00 | Outpatient (BNVA) | payer MEDICARE, MEDICAID, SELFPAY | PROVIDERS: PCP Internal Medicine; Visit Provider Obstetrics & Gynecology | DX: N87.0 Mild cervical dysplasia (principal) | CPT/HCPCS: 99212 ==

== ENCOUNTER 2023-05-26 12:19 | Outpatient (AMB) | payer MEDICARE, MEDICAID, SELFPAY ==
[2023-05-26 12:32] VITALS: BP 120/80; PULSE 79; O2SAT 97; BMI 51.3
--- NOTE | 2023-05-26 12:32 | A.OFFPC_ITS ---
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 Accompanied by: Self / Same As Patient Allergies No Known Allergies Allergy (Verified 05/26/23 13:19) Medication List - Last Reconciled 05/26/23 by Dilan Aldridge MD bupropion HCl 200 mg PO BID cetirizine 10 mg PO DAILY PRN 90 days escitalopram oxalate 10 mg PO DAILY 90 days ibuprofen 800 mg PO TID PRN levonorgestrel (Mirena) intrauterine metformin ER 1,000 mg (2 x 500 mg) PO BID oxybutynin chloride ER 10 mg PO BID topiramate 25 mg PO BEDTIME 90 days trazodone 100 mg PO BEDTIME PRN Tobacco use date assessed: 05/26/23 Dental Screening Dental Screen Date: 05/26/23 Did you have a dental visit in the last 12 months?: Yes Did you have a dental problem in the last 6 months where you did not have access to dental care?: No Was dental information given to patient?: Patient has dentist HPI Physical Exam HPI Details Patient comes in today for her annual physical examination States that she has been experiencing increasingly frequent migraine headaches lately States that she usually just takes Ibuprofen as needed for her headaches but as her headaches have been occurring more often lately, she has had to take Ibuprofen now almost on a daily basis and is concerned about her taking too much Rx - is aware that taking too much Ibuprofen is not good for her Adds that she has been experiencing increasing anxiety and depression lately despite her current medications - needs these and a few other Rx refilled Would like to stay on her current dose for now States also that she's had a lot of skin tags, mostly around her neck area, for a few months now and would like to get a referral to see dermatology to have these tags removed as soon as possible She denies any dizziness lately Relates (+) nasal congestion and some nausea at times when her headaches occur She denies any chest pains, no SOB No vomiting, no abdominal pain and no change in bowel habits noted She denies any acute urinary symptoms 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 Mother Diverticulitis Other Substance abuse Social History Household Members: Children Housing: Apartment Are you a primary child daycare worker to a significant other at home: No Do you presently have visiting nurse or other home services: No Alcohol intake: former Patient Tobacco Use Status: Never used Tobacco e-Cigarette/Vaping Use: Currently Using Second Hand Smoke Exposure: No Advance Directives Date on File: 04/14/20 service: No Current occupational status: employed Cognitive needs: No Hearing needs: No Vision needs: No Female Reproductive History Menstrual Age of Menarche: 12 Questionnaire PHQ-9 Over the last 2 weeks, how often have you been bothered by any of the following problems? 1. Little interest or pleasure in doing things: nearly every day 2. Feeling down, depressed, or hopeless: more than half the days 3. Trouble falling or staying asleep, or sleeping too much: nearly every day 4. Feeling tired or having little energy: nearly every day 5. Poor appetite or overeating: nearly every day 6. Feeling bad about yourself - or that you are a failure or have let yourself or your family down: more than half the days 7. Trouble concentrating on things, such as reading the newspaper or watching television: more than half the days 8. Moving or speaking so slowly that other people could have noticed. Or the opposite - being so fidgety or restless that you have been moving around a lot more than usual: more than half the days 9. Thoughts that you would be better off or of hurting yourself in some way: not at all Total score: 20 Depression Screening Interpretation: Positive Depression Screening Follow-up: Existing condition and In treatment (does not wish to change Rx at this time but will call if anything changes) Depression Screening Done: Yes 53005 - PHQ-9 Billing: Yes Source: Developed by Drs. Nathan Peck, Janie Apodaca, Clive Powers and colleagues, with an educational odette from [employer]. Thrive Questionnaire Date Thrive assessed: 05/26/23 I am a: Patient What is your living situation today?: I have a steady place to live Within the past 12 months, did the food you bought not last and you didn't have the money to get more?: Never true Within the past 12 months, did you worry whether your food would run out before you got money to buy more?: Never true Do you have trouble paying for medicines?: No Do you have trouble getting transportation to medical appointments?: No Do you have trouble paying your heating and electricity bill?: No Do you have trouble taking care of your child, family member or friend?: No Do you have trouble with day-to-day activities such as bathing, preparing meals, shopping, managing finances, etc.?: No Are you currently unemployed and looking for a job?: No Are you interested in more education?: No Please select the resources that you would like help with: None Currently or been in a relationship where the following occur: no concerns reported AUDIT C Alcohol Use Questionnaire (AUDIT-C) 1. How often do you have a drink containing alcohol?: Never 3. How often do you have six or more drinks on one occasion?: Never Total Score: 0 Score Reviewed/Action Taken: Yes MARCK-7 AMB Questionnaire MARCK-7 Date MARCK - 7 assessed: 05/26/23 Feeling nervous, anxious, or on edge: 3 = Nearly every day Not being able to stop or control worryin = Nearly every day Worrying too much about different things: 3 = Nearly every day Trouble relaxin = Nearly every day Being so restless that it is hard to sit still: 3 = Nearly every day Becoming easily annoyed or irritable: 3 = Nearly every day Feeling afraid as if something awful might happen: 3 = Nearly every day Total MARCK-7 score (0-4 normal; 5-9 mild; 10-14 moderate; 15-21 severe): 21 Source: Developed by Drs. Nathan Peck, Janie Apodaca, Clive Powers and colleagues, with an educational odette from [employer]. Review of Systems Const Denies chills, Reports fatigue, Denies fever(s), Reports headache(s) (increasing and occurring more often lately) and Denies malaise Eyes Denies blurry vision, Denies change in vision, Denies irritation, Denies itchy eyes and Reports photophobia (when headaches occur) ENT Denies dysphagia, Denies dizziness, Reports dry mouth (frequently lately), Denies otalgia, Reports headache(s) (increasing and occurring more often lately), Reports nasal congestion (often associated with headaches), Denies neck pain, Denies odynophagia, Denies sinus pain and Denies sore throat Card Denies chest pain, Denies rapid heart rate, Denies irregular heart rhythm, Denies palpitations and Denies dyspnea Resp Denies chest congestion, Denies cough, Denies dyspnea and Denies wheezing GI Denies abdominal pain, Denies bloating, Denies constipation, Denies dysphagia, Denies heartburn, Denies diarrhea, Denies nausea, Denies odynophagia and Denies vomiting Denies hematuria, Denies urinary frequency, Denies dysuria, Denies urinary incontinence and Denies urinary urgency Musc Denies back pain, Denies arthralgias, Denies joint swelling, Denies muscle weakness and Denies neck pain Skin/Breast Denies breast pain, Denies breast mass, Denies change in pigmentation, Reports lesions ((+) multiple skin tags, especially around her neck), Denies rash and Denies unusual bruising Neuro Denies dizziness, Reports headache(s) (increasing and occurring more often lately) and Denies paresthesias Psych Reports anxiety (increasing) and Reports depression (increasing) Endo Reports fatigue and Denies palpitations Jonathan/Lymph Denies easy bruising Aller/Immun Denies itchy eyes and Denies wheezing Physical exam (Primary Care) Vital Signs: Last Vital Signs Pulse 79 05/26/23 12:32 BP 120/80 05/26/23 12:32 Pulse Ox 97 05/26/23 12:32 Oxygen Delivery Method Room Air 05/26/23 12:32 BMI result Body Mass Index 51.3 Tobacco/Smoking Status: Tobacco use Status Tobacco use date assessed 05/26/23 05/26/23 12:37 Patient Tobacco Use Status Never used Tobacco 05/26/23 12:37 e-Cigarette/Vaping Use Currently Using 05/26/23 12:37 PHQ-9: PHQ-9 Score PHQ-9: Total score 20 05/26/23 12:37 Depression Screening Interpretation: Positive Depression Screening Follow-up: Existing condition and In treatment (does not wish to change Rx at this time but will call if anything changes) Thrive Assessment: Date of Thrive Assessment Date Thrive assessed 05/26/23 05/26/23 12:37 Currently or been in a relationship where the following occur: no concerns reported Const General: no acute distress, alert and awake Orientation/consciousness: patient oriented x3 HENMT Head: Yes normocephalic and Yes atraumatic Ears: external ears normal, TM's normal bilaterally and EAC's normal General nose exam: No nasal discharge present Face and sinus: Yes normal facial exam and Yes sinuses nontender Teeth and gingiva: dentition normal Throat: Yes posterior oropharynx normal and Yes tonsils normal (no TP congestion) Eyes Eyelids: Yes eyelids normal Conjunctivae: conjunctivae normal Pupils: Equal, round and reactive pupils present EOM: EOMs intact bilaterally Direct Ophthalmoscopy: photophobia (when headaches occur) Neck Neck: Yes no lymphadenopathy and Yes supple Thyroid: Thyroid normal Resp Auscultation: clear to auscultation bilaterally, no rales and no wheezes Cardio Rate: regular rate Rhythm: regular rhythm Heart sounds: no murmurs GI Palpation (GI): Soft to palpation, nontender and No hepatosplenomegaly present Auscultation: normal bowel sounds General: Yes no CVA tenderness Back/Spine/Pelvis Back: no CVA tenderness Thoracic/Lumbar Spine: thoracic and lumbar spine normal to inspection Skin Lesions: lesion noted ((+) multiple scattered raised skin tags, especially around the neck area) Rashes: no rashes Neuro General: patient oriented x3, moves all extremities, no focal motor deficits and CN's II-XI intact bilaterally Cranial nerves: Yes Equal, round and reactive pupils present Cognition (Neuro): normal cognition Gait exam (Neuro): Normal gait present Extrem General: Yes no clubbing, cyanosis or edema Assessment and Plan Assessment & Plan (1) Annual physical exam: Code(s): Z00.00 - Encounter for general adult medical examination without abnormal findings Plan: Check labs Advised that her labs done last year showed a slight increase in her cholesterol levels, her LFTs were also still slightly elevated and her Vitamin D level was low She is scheduled for repeat mammogram in August [address] 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 TID PRN with food but as her headaches appear to be increasing lately, will try starting her on prophylactic Tx with Topiramate 25 mg Q HS If this does not work out, then she may benefit from a referral to neurology (3) Elevated LFTs: Code(s): R79.89 - Other specified abnormal findings of blood chemistry Plan: Most likely due to ARTEAGA (steatohepatitis) related to her weight and should improve with weight loss Abdominal and pelvic US done last year showed (+) enlarged fatty liver but her abdominal CT showed no acute findings in the liver Will recheck her LFTs for follow up (4) Impaired fasting glucose: Code(s): R73.01 - Impaired fasting glucose Plan: HgbA1c was normal at 5.7% when last checked in 2020; FBS was normal on her labs done last year Reinforced low calorie diet/exercise as tolerated (5) PCOS (polycystic ovarian syndrome): Code(s): E28.2 - Polycystic ovarian syndrome Plan: Continue Metformin ER 500 mg 2 tablets BID Follow up with [facility] as scheduled (6) Allergic rhinitis: Code(s): J30.9 - Allergic rhinitis, unspecified Qualifiers: Allergic rhinitis trigger: unspecified Allergic rhinitis seasonality: unspecified Qualified Code(s): J30.9 - Allergic rhinitis, unspecified Plan: Continue Cetirizine 10 mg QD PRN (7) Kidney lesion: Code(s): N28.9 - Disorder of kidney and ureter, unspecified Plan: (+) stable 1.2 cm left renal mass seen on her previous abdominal and pelvic CT (June 2020) that is unchanged from CT and US done in 2019? Repeat abdominal and pelvic CT done in February 2021 showed (+) complex right ovarian cyst; IUD well located within the anteverted uterus; mild constipation; NO radiopaque urolith or enhancing renal mass or hydroureteronephrosis seen Follow up with urology as scheduled for continuing evaluation and management (8) Lumbar spondylosis: Code(s): M47.816 - Spondylosis without myelopathy or radiculopathy, lumbar region Plan: Reinforced activity and weight-lifting restrictions Follow up with pain management as scheduled (9) Multiple acquired skin tags: Code(s): L91.8 - Other hypertrophic disorders of the skin Plan: Per request, will refer her to dermatology for consideration for excision of her multiple skin tags (10) Insomnia: Code(s): G47.00 - Insomnia, unspecified Qualifiers: Insomnia type: unspecified Qualified Code(s): G47.00 - Insomnia, unspe cified Plan: Sleep hygiene reinforced Continue on Trazodone 100 mg Q HS PRN? (11) Anxiety: Code(s): F41.9 - Anxiety disorder, unspecified Plan: States that she was doing well on Bupropion SR previously until it stopped working; doing better currently with the addition of Escitalopram Continue Escitalopram 10 mg Q AM (12) Depression: Code(s): F32.9 - Major depressive disorder, single episode, unspecified Qualifiers: Depression Type: unspecified Qualified Code(s): F32.9 - Major depressive disorder, single episode, unspecified Plan: Continue Bupropion SR 200 mg BID and Escitalopram 10 mg Q AM Will refer her back to psychiatry ([facility]) for therapy and counseling as well Have advised patient to call if she feels that her current meds are no longer helping her anxiety and depression - can consider adjusting her medication dosage then (13) Morbid obesity with BMI of 45.0-49.9, adult: Code(s): E66.01 - Morbid (severe) obesity due to excess calories; Z68.42 - Body mass index [BMI] 45.0-49.9, adult Plan: Reinforced diet/exercise as tolerated/lose weight Plan To return in 1 year for her next annual physical examination Orders: Orders Complete Blood Count Auto Diff Today E28.2 - Polycystic ovarian syndrome, G43.909 - Migraine, unspecified, not intractable, without status migrainosus, Z00.00 - Encounter for general adult medical examination without abnormal findings TSH reflex Free T4 Today E28.2 - Polycystic ovarian syndrome, E78.00 - Pure hypercholesterolemia, unspecified, G43.909 - Migraine, unspecified, not intractable, without status migrainosus, Z00.00 - Encounter for general adult medical examination without abnormal findings UA CC w/rflx Micro + Cult Today E28.2 - Polycystic ovarian syndrome, G43.909 - Migraine, unspecified, not intractable, without status migrainosus, R30.0 - Dysuria, Z00.00 - Encounter for general adult medical examination without abnormal findings Vitamin D 25-OH Total Today E28.2 - Polycystic ovarian syndrome, E55.9 - Vitamin D deficiency, unspecified, G43.909 - Migraine, unspecified, not intractable, without status migrainosus, Z00.00 - Encounter for general adult medical examination without abnormal findings Hemoglobin A1c Today R73.01 - Impaired fasting glucose, Z00.00 - Encounter for general adult medical examination without abnormal findings Lipid Panel Today E28.2 - Polycystic ovarian syndrome, E78.00 - Pure hypercholesterolemia, unspecified, G43.909 - Migraine, unspecified, not intractable, without status migrainosus, Z00.00 - Encounter for general adult medical examination without abnormal findings Comprehensive [place]. Panel Fast Today E28.2 - Polycystic ovarian syndrome, E78.00 - Pure hypercholesterolemia, unspecified, G43.909 - Migraine, unspecified, not intractable, without status migrainosus, Z00.00 - Encounter for general adult medical examination without abnormal findings Referrals Dermatology Referral L91.8 - Other hypertrophic disorders of the skin Psychiatry Referral F32.9 - Major depressive disorder, single episode, unspecified, F41.9 - Anxiety disorder, unspecified Medications: New topiramate 25 mg PO BEDTIME 90 days 90 tabs 1RF G43.909 - Migraine, unspecified, not intractable, without status migrainosus Refilled escitalopram oxalate 10 mg PO DAILY 90 days 90 tabs 1RF F32.9 - Major depressive disorder, single episode, unspecified, F41.9 - Anxiety disorder, unspecified bupropion HCl 200 mg PO BID 180 caps 1RF F32.9 - Major depressive disorder, single episode, unspecified, F41.9 - Anxiety disorder, unspecified trazodone 100 mg PO BEDTIME PRN 90 tabs 1RF for insomnia G47.00 - Insomnia, unspecified metformin ER 1,000 mg (2 x 500 mg) PO BID 360 tabs 1RF E28.2 - Polycystic ovarian syndrome Coding Level of Care Code Est Pt Prev Care 40-64y(27029) Diagnoses Annual physical exam Z00.00 Migraine without status migrainosus, not intractable, unspecified migraine type G43.909 Migraine type: unspecified Status migrainosus presence: without status migrainosus Intractability: not intractable Elevated LFTs R79.89 Impaired fasting glucose R73.01 PCOS (polycystic ovarian syndrome) E28.2 Allergic rhinitis, unspecified seasonality, unspecified trigger J30.9 Allergic rhinitis trigger: unspecified Allergic rhinitis seasonality: unspecified Kidney lesion N28.9 Lumbar spondylosis M47.816 Multiple acquired skin tags L91.8 Insomnia, unspecified type G47.00 Insomnia type: unspecified Anxiety F41.9 Depression, unspecified depression type F32.9 Depression Type: unspecified Morbid obesity with BMI of 45.0-49.9, adult E66.01; Z68.42
== END 2023-05-26 13:24 | disposition home or self-care (01) ==
PROVIDERS: PCP Internal Medicine; Visit Provider Internal Medicine
DX: Z00.00 Encounter for general adult medical examination without abnormal findings (principal); E66.01 Morbid (severe) obesity due to excess calories; Z68.42 Body mass index [BMI] 45.0-49.9, adult; G43.909 Migraine, unspecified, not intractable, without status migrainosus; R79.89 Other specified abnormal findings of blood chemistry; R73.01 Impaired fasting glucose; E28.2 Polycystic ovarian syndrome; J30.9 Allergic rhinitis, unspecified; N28.9 Disorder of kidney and ureter, unspecified; M47.816 Spondylosis without myelopathy or radiculopathy, lumbar region; L91.8 Other hypertrophic disorders of the skin
CPT/HCPCS: 99396

== ENCOUNTER 2023-05-27 07:45 | Outpatient (REF) | payer MEDICARE, MEDICAID, SELFPAY ==
[2023-05-27 08:03] LABS: MANUAL DIFF FLAG NO
[2023-05-27 08:24] LABS: Appearance Urine Cloudy; Color Urine Yellow; Glucose Urine UA Negative (Negative); Leukocyte Esterase Urine Small (1+) (Negative); Nitrite Urine Negative (Negative); UMIC TRIGGER UACC YES; Urine Blood Trace (Negative); Urine Ketones Negative (Negative); Urine Protein Negative (Neg-Trace)
[2023-05-27 08:25] LABS: Basophils Absolute Auto 0.1 X10*3/uL (0.0-0.2); Basophils Percent Auto 0.6 % (0-2); Eosinophils Absolute Auto 0.1 X10*3/uL (0.0-0.4); Eosinophils Percent Auto 1.1 % (0-4); Hematocrit 38.6 % (37.0-47.0); Hemoglobin 13.1 g/dl (12.0-16.0); Imm Gran Pct Auto 0.9 % (0.0-0.4); Lymphocytes Absolute Auto 2.7 X10*3/uL (1.2-4.9); Lymphocytes Percent Auto 24.7 % (20-40); Mean Corpuscular HGB Conc 33.9 g/dl (31.0-35.0); Mean Corpuscular Hemoglobin 28.5 pg (27.0-33.0); Mean Corpuscular Volume 84.1 fL (80.0-98.0); Mean Platelet Volume 9.5 fL (9.4-12.3); Monocytes Absolute Auto 0.5 X10*3/uL (0.1-1.2); Monocytes Percent Auto 4.9 % (2-11); Neutrophils Absolute Auto 7.4 x10*3/uL (2.0-8.3); Neutrophils Percent Auto 67.8 % (45-73); Platelet Count 256 X10*3/uL (160-400); Red Blood Count 4.59 X10*6/uL (4.20-5.50); Red Cell Distribution Width 13.2 % (11.0-16.0); White Blood Count 10.9 X10*3/uL (4.8-10.8)
[2023-05-27 08:27] LABS: Bacteria Urine 2+ (None Seen); Hyaline Casts Urine 0-2 /LPF (0-2); RBC Urine 0-2 /HPF (0-2); UACC Culture Trigger YES
[2023-05-27 08:33] LABS: Estimated Average Glucose 126 mg/dL; Hemoglobin A1C 145.3455 umol/L
[2023-05-27 08:52] LABS: Alanine Aminotransferase 38 U/L (0-31); Albumin Level 3.5 g/dL (3.5-5.0); Alkaline Phosphatase 96 U/L (39-117); Anion Gap 11 (12-20); Aspartate Amino Transferase 44 U/L (5-31); Bilirubin Total 0.7 mg/dL (0.0-1.0); Blood Urea Nitrogen 8 mg/dL (9-16); Calcium 8.9 mg/dL (8.4-10.2); Carbon Dioxide 25 mmol/L (22-29); Chloride 108 mmol/L (96-108); Cholesterol 158 mg/dL (<200); Estimated Glomerular Filt Rate > 60; Glucose Fasting 144 mg/dL (60-99); HDL Cholesterol 45 mg/dL (>40); LDL Cholesterol Calculated 99 mg/dL (<100); Sodium 140 mmol/L (135-145); Total Protein 6.9 g/dL (6.5-8.0); Triglycerides 71 mg/dL (<150)
[2023-05-27 09:07] LABS: TSH reflex Free T4 1.97 uIU/mL (0.32-4.0); Vitamin D 25-OH Total 22.8 ng/mL (>30)
== END 2023-05-27 07:46 | disposition home or self-care (01) ==
LOC: HO.LAB 07:45
PROVIDERS: PCP Internal Medicine; Visit Provider Internal Medicine
DX: Z00.00 Encounter for general adult medical examination without abnormal findings (principal); G43.909 Migraine, unspecified, not intractable, without status migrainosus; E28.2 Polycystic ovarian syndrome; E55.9 Vitamin D deficiency, unspecified; R73.01 Impaired fasting glucose; E78.00 Pure hypercholesterolemia, unspecified; R30.0 Dysuria
CPT/HCPCS: 36415; 80053; 80061; 81001; 82306; 83036; 84443; 85025; 87086

== ENCOUNTER 2023-07-24 10:11 | Outpatient (AMB) | payer MEDICARE, MEDICAID, SELFPAY ==
--- NOTE | 2023-07-24 10:15 | A.OFFVIS_ITS ---
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 Required: No Accompanied by: Self / Same As Patient Allergies No Known Allergies Allergy (Verified 07/24/23 10:16) Medication List - Last Reconciled 07/24/23 by Pipe Pretty MD bupropion HCl 200 mg PO BID cetirizine 10 mg PO DAILY PRN 90 days escitalopram oxalate 10 mg PO DAILY 90 days ibuprofen 800 mg PO TID PRN levonorgestrel (Mirena) intrauterine metformin ER 1,000 mg (2 x 500 mg) PO BID topiramate 25 mg PO BEDTIME 90 days trazodone 100 mg PO BEDTIME PRN vibegron (Gemtesa) 75 mg PO DAILY HPI HPI Comments History of Present Illness Details Erin is a [id number] female who is here for 6 month FU. She is being followed for OAB with LUTS of urgency She is complaining of dry mouth. I will change to gemtesa 75 mg daily. Discussed trial of OTC biotene products. UA --- Blood 1+, leuk neg Review of chart Results: Renal US results reviewed?01/13/23-- Kidneys WNL. 03/05/21 -CT KUB--kidneys WNL, no stones. followed by OB-BIOMASS PRODUCTION MANAGER for pre-cancerous cells on PAP. 07/24/23--Plan: D/C oxybutynin 10 mg BID. Gemtesa 75 mg pranay Office follow-up after 6 months. [facility] Medical History JUNAID III (cervical intraepithelial neoplasia grade III) with severe dysplasia History of COVID-19 IAN (obstructive sleep apnea) Morbid obesity with BMI of 50.0-59.9, adult Allergic rhinitis Migraine Morbid obesity with BMI of 45.0-49.9, adult Depression Anxiety Insomnia Elevated LFTs PCOS (polycystic ovarian syndrome) Impaired fasting glucose Surgical History History of esophagogastroduodenoscopy (EGD) Hx of colonoscopy Previous section Family History Father No problems noted. Mother Diverticulitis Other Substance abuse Social History Household Members: Children Housing: Apartment Are you a primary youth care worker to a significant other at home: No Do you presently have visiting nurse or other home services: No Alcohol intake: former Patient Tobacco Use Status: Never used Tobacco e-Cigarette/Vaping Use: Currently Using Second Hand Smoke Exposure: No Advance Directives Date on File: 04/14/20 service: No Current occupational status: employed Cognitive needs: No Hearing needs: No Vision needs: No Female Reproductive History Menstrual Age of Menarche: 12 Review of Systems Const All systems reviewed & are unremarkable except as noted in HPI and below Reports no additional complaints Eyes Reports no additional complaints ENT Denies neck pain Card Denies dyspnea Resp Denies cough and Denies dyspnea GI Denies constipation Reports no additional complaints Musc Reports no additional complaints and Denies neck pain Skin/Breast Denies rash and Denies unusual bruising Neuro Reports no additional complaints Psych Reports no additional complaints Endo Reports no additional complaints Jonathan/Lymph Reports no additional complaints Aller/Immun Reports no additional complaints Results AMB Urinalysis, Automated UA Leukoctes 0 Mini/uL Last Edit by JOANA Marinelli on 07/24/23 10:28 UA Nitrite Negative Last Edit by JOANA Marinelli on 07/24/23 10:28 UA Urobilinogen 0.2 mg/dL Last Edit by JOANA Marinelli on 07/24/23 10:2 8 UA Protein 15 mg/dL Last Edit by JOANA Marinelli on 07/24/23 10:28 UA pH 6.0 Last Edit by JOANA Marinelli on 07/24/23 10:28 UA Blood 25 [place]/uL Last Edit by JOANA Marinelli on 07/24/23 10:28 1+ Maxine Real 07/24/23 10:28 UA Specific [place] 1.015 Last Edit by JOANA Marinelli on 07/24/23 10: 28 UA Ketone Negative Last Edit by JOANA Marinelli on 07/24/23 10:28 UA Bilirubin 0 mg/dL Last Edit by JOANA Marinelli on 07/24/23 10:28 UA Glucose 0 mg/dL Last Edit by JOANA Marinelli on 07/24/23 10:28 Results Reviewed Results Reviewed: Laboratory Last Values Urine pH (Auto) 6.0 07/24/23 10:27 Specific [place] (Auto) 1.015 07/24/23 10:27 Urine Protein (Auto) 15 mg/dL 07/24/23 10:27 Glucose (UA)(Auto) 0 mg/dL 07/24/23 10:27 Urine Ketones (Auto) Negative 07/24/23 10:27 Urine Blood (Auto) 25 [place]/uL 07/24/23 10:27 Urine Nitrite (Auto) Negative 07/24/23 10:27 Urine Bilirubin (Auto) 0 mg/dL 07/24/23 10:27 Urine Urobilinogen (Auto) 0.2 mg/dL 07/24/23 10:27 Leukocyte Esterase (Auto) 0 Mini/uL 07/24/23 10:27 Assessment & Plan Assessment & Plan (1) Microscopic hematuria: Code(s): R31.29 - Other microscopic hematuria (2) Urge incontinence of urine: Code(s): N39.41 - Urge incontinence (3) Urinary frequency: Code(s): R35.0 - Frequency of micturition Plan D/C oxybutynin 10 mg BID. Gemtesa 75 mg pranay Office follow-up after 6 months. Orders: Orders AMB Urinalysis Automated Today Z13.9 - Encounter for screening, unspecified Medications: New vibegron (Gemtesa) 75 mg PO DAILY 90 tabs 2RF Discontinued oxybutynin chloride ER Discontinued Reason: Doctor's Order 10 mg PO BID 180 tabs 2RF Coding Level of Care Code Est Pt Level 4 (48875) Diagnoses Microscopic hematuria R31.29 Urge incontinence of urine N39.41 Urinary frequency R35.0
== END 2023-07-24 10:57 | disposition home or self-care (01) ==
PROVIDERS: PCP Internal Medicine; Visit Provider Urology
DX: R31.29 Other microscopic hematuria (principal); N39.41 Urge incontinence; R35.0 Frequency of micturition
CPT/HCPCS: 99214

== ENCOUNTER → 2023-07-24 10:11 | Outpatient (BNVA) | payer MEDICARE, MEDICAID, SELFPAY | PROVIDERS: PCP Internal Medicine; Visit Provider Urology | DX: R31.29 Other microscopic hematuria (principal); R35.0 Frequency of micturition; N39.41 Urge incontinence | CPT/HCPCS: 81003; 99212 ==

== ENCOUNTER 2023-09-11 13:18 | Outpatient (REF) | payer MEDICARE, MEDICAID, SELFPAY ==
--- NOTE | ~2023-09-11 | US_ITS ---
EXAMINATION: MM DIAGNOSTIC DIGITAL BREAST TOMOSYNTHESIS, BILATERAL US BREAST LIMITED, LEFT MAMMOGRAPHY: CLINICAL INFORMATION: 6 month Follow-up cluster of cysts/oval mass 3:00 axis left breast, mid to anterior one third seen on prior exam and prior ultrasounds. Patient also due for routine bilateral screening. COMPARISON: Mammography: 08/22/2022. TECHNIQUE: Digital breast tomosynthesis is performed in both the craniocaudal and mediolateral oblique views along with computer-aided detection (CAD). Synthesized 2D images are generated from the tomosynthesis. In addition to standard views, bilateral 3-D full-field CC and MLO extra views for anterior compression/nipple in profile were also provided. FINDINGS: The breasts are almost entirely fatty (ACR BI-RADS breast composition Category a). There are no significant masses, abnormal calcifications, areas of architectural distortion, or other abnormalities. Previously seen oval mass at 3:00 axis left breast is no longer well appreciated. It appears to have resolved. This will be evaluated by ultrasound. ULTRASOUND: CLINICAL INFORMATION: 6 month Follow-up cluster of cysts/complicated cyst left breast 3:00 axis, 8 cm from the nipple. COMPARISON: 02/26/2023, 08/27/2022, TECHNIQUE: Targeted sonographic evaluation left breast 3:00 axis was performed using a high frequency linear transducer. Selected archived documentation. FINDINGS: LEFT BREAST: -The previously seen cluster of cysts is no longer evident and has resolved in the left breast at the 3:00 axis. There is no mass, persisting cystic abnormality, abnormal region of shadowing, architectural distortion, or edema along the soft tissue planes identified. US/US breast LT limited mamm only IMPRESSION: There are no findings in either breast suspicious for malignancy. Cluster of cysts in the 3:00 axis right breast has resolved. No further follow-up warranted. Recommend the patient return to routine annual screening in one year. OVERALL ASSESSMENT: Mammography: BI-RADS 1 - Negative Ultrasound: BI-RADS 1 - Negative RECOMMENDATION: 1 year F/U This patient's information was entered into a reminder system with a target due date for their next mammogram.
== END 2023-09-11 13:19 | disposition home or self-care (01) ==
LOC: HO.MAMMO 13:18
PROVIDERS: PCP Internal Medicine; Visit Provider Internal Medicine
DX: N60.02 Solitary cyst of left breast (principal)
CPT/HCPCS: 76642; 77062; 77066

== ENCOUNTER → 2023-09-11 14:00 | Outpatient (BNV) | payer MEDICARE, MEDICAID, SELFPAY | PROVIDERS: PCP Internal Medicine; Visit Provider Radiology Diagnostic Radiology | DX: R92.8 Other abnormal and inconclusive findings on diagnostic imaging of breast (principal) | CPT/HCPCS: 76642; 77066; G0279 ==

== ENCOUNTER 2024-03-08 14:20 | Emergency (ER) | payer MEDICARE, MEDICAID, SELFPAY ==
--- NOTE | ~2024-03-08 | US_ITS ---
EXAMINATION: US PELVIS CLINICAL INFORMATION: Vaginal bleeding. 43-year-old, intrauterine device COMPARISON: 11/19/2021 TECHNIQUE: Ultrasound of the pelvis is performed using both transabdominal and transvaginal transducers along with Doppler. Transvaginal imaging is performed due to inadequate visualization transabdominally. FINDINGS: Uterus: The uterus is anteverted and measures 8.1 x 3.1 x 3.2 cm. Endometrium is obscured by the intrauterine device which appears centered within the endometrial canal. The uterus is smooth in contour and has normal myometrial echogenicity. No visible fibroid. Adnexa: There is no pelvic ascites or fluid collection. Right ovary measures 3.1 x 2.7 x 2.3 cm. Left ovary is not visualized. No large left adnexal mass. US/US pelvic and transvaginal IMPRESSION: Intrauterine device appears centered within the endometrial canal. Electronically signed by: Sloane De La O MD 03/08/2024 06:59 PM EDT
[2024-03-08 14:31] VITALS: BP 138/66; PULSE 83; RESP 18; TEMP 36.7; O2SAT 98; BMI 47.1
--- NOTE | 2024-03-08 14:31 | ED.GENADULT ---
HPI - General Adult General Chief complaint: Vaginal Bleeding Stated complaint: vaginal bleeding Time Seen by Provider: 03/08/24 22:29 Source: patient Mode of arrival: ambulatory Limitations: no limitations History of Present Illness ED Provider: Dr. Moncada HPI narrative: Patient presents with 3 weeks of vaginal bleeding. She has an IUD in and has not had a period in 4 years. Patient states she is feeling weak and dehydrated. Onset (ago): week(s) Severity: mild Related Data Home Medications ?Medication ?Instructions ?Recorded ?Confirmed levonorgestrel 21 mcg/24 hr (up to intrauterine 10/23/21 07/24/23 8 years) 52 mg intrauterine device (Mirena) Previous Rx's ?Medication ?Instructions ?Recorded ibuprofen 800 mg tablet 800 mg PO TID PRN for headache 06/13/21 #270 tabs bupropion HCl 200 mg tablet,12 hr 200 mg PO BID #180 caps 05/26/23 sustained-release escitalopram oxalate 10 mg tablet 10 mg PO DAILY 90 days #90 tabs 05/26/23 metformin 500 mg tablet,extended 1,000 mg (2 x 500 mg) PO BID #360 05/26/23 release 24 hr tabs topiramate 25 mg tablet 25 mg PO BEDTIME 90 days #90 tabs 05/26/23 trazodone 100 mg tablet 100 mg PO BEDTIME PRN for insomnia 05/26/23 #90 tabs vibegron 75 mg tablet (Gemtesa) 75 mg PO DAILY #90 tabs 07/24/23 cetirizine 10 mg tablet 10 mg PO DAILY PRN allergy 11/20/23 symptoms 90 days #90 tabs Allergies Allergy/AdvReac Type Severity Reaction Status Date / Time No Known Allergies Allergy Verified 03/08/24 14:36 Review of Systems Review of Systems: Yes all other systems are reviewed and are negative Neurologic: Denies Sensory deficit (Neuro) PMFSH Past Medical History Medical History 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 Mother Diverticulitis Other Substance abuse Social History Social History Household Members: Children Housing: Apartment Are you a primary director career to a significant other at home: No Do you presently have visiting nurse or other home services: No Alcohol intake: former Patient Tobacco Use Status: Never used Tobacco e-Cigarette/Vaping Use: Currently Using Second Hand Smoke Exposure: No Advance Directives: Yes Advance Directives on File: Yes Advance Directives Date on File: 04/14/20 Do you have a plan to hurt others: No Plan service: No Current occupational status: employed Cognitive needs: No Hearing needs: No Vision needs: No Physical Exam ED Vital Signs: Vital Signs - 24 hr 03/08/24 14:31 Temperature 98.1 F Pulse Rate 83 Respiratory Rate 18 Blood Pressure 138/66 Pulse Oximetry 98 Oxygen Delivery Method Room Air BMI result Body Mass Index 47.1 Const Other: morbidly obese female in no acute distress Orientation/consciousness: oriented to person and patient oriented x3 Limitations: no limitations HENMT Head: Yes normal to inspection Ears: external ears normal General nose exam: Normal external nose present Mouth: Normal oral and palatal mucosa present and oropharynx normal Throat: Yes posterior oropharynx normal Eyes General: appearance normal, both eyes and all related structures Neck Neck: Yes normal visual inspection Chest Chest palpation & inspection: normal inspection of the chest Resp Auscultation: clear to auscultation bilaterally Cardio Jugular venous distension: no JVD Rate: regular rate Rhythm: regular rhythm Heart sounds: S1 normal heart sound present and S2 normal heart sound present GI Inspection: Yes normal to inspection Palpation (GI): Soft to palpation, nontender and No hepatosplenomegaly present Auscultation: normal bowel sounds General: Yes no CVA tenderness Back/Spine/Pelvis Back: no CVA tenderness Skin General skin exam: no rashes or lesions noted Neuro General: oriented to person and patient oriented x3 Cranial nerves: Yes CN's II-XII intact bilaterally Motor exam (neuro): 5/5 motor strength present throughout Sensory Exam: No Sensory deficit (Neuro) Extrem General: Yes normal to inspection Psych Appearance: grossly normal Course Course Course Narrative: RME performed by Iqra Bills PA-C. Patient is a 43 year old assigned female at presenting to the emergency department with vaginal bleeding and feeling generally unwell. Patient states she has had her period for quite awhile and her last period was 4 years before this. Detailed physical exam and review of systems are deferred to the home therapy clinician. Labs ordered. Patient placed back in the waiting room pending room availability and results. Reevaluation(s) Reevaluation #1: patient with a stabe HCT, pelvic US shows IUD in place, no masses, she is not by HCG quant Will dc patient home to follow up with Dr. Groves Time: 23:09 Medical Decision Making Differential Diagnosis Differential Diagnoses: The differential diagnosis associated with the presentation includes (, misscarriage, ectopic, perforated Uterus from IUD, dysfunctional uterine bleeding) Admission/Observation Consideration of admission/observation: Escalation of care including admission/observation considered (upon arrival patient was considered for admission) Lab Data 03/08/24 14:53 03/08/24 14:53 Labs: Lab Results 03/08/24 03/08/24 Range/Units 14:52 14:53 WBC 12.2 H (4.8-10.8) X10*3/uL RBC 4.64 (4.20-5.50) X10*6/uL Hgb 13.7 (12.0-16.0) g/dl Hct 38.9 (37.0-47.0) % MCV 83.8 (80.0-98.0) fL MCH 29.5 (27.0-33.0) pg MCHC 35.2 H (31.0-35.0) g/dl RDW 13.0 (11.0-16.0) % Plt Count 293 (160-400) X10*3/uL MPV 9.4 (9.4-12.3) fL Immature Gran % (Auto) 0.6 H (0.0-0.4) % Neut % (Auto) 68.5 (45-73) % Lymph % (Auto) 25.3 (20-40) % [place] % (Auto) 4.8 (2-11) % Eos % (Auto) 0.3 (0-4) % Baso % (Auto) 0.5 (0-2) % Lymph # (Auto) 3.1 (1.2-4.9) X10*3/uL [place] # (Auto) 0.6 (0.1-1.2) X10*3/uL Eos # (Auto) 0.0 (0.0-0.4) X10*3/uL Baso # (Auto) 0.1 (0.0-0.2) X10*3/uL Abs Immat Gran (auto) 0.07 H (0.00-0.03) X10*3/uL Absolute Neuts (auto) 8.4 H (2.0-8.3) x10*3/uL Absolute Nucleated RBC 0.000 (0.0-0.012) X10*3/uL Nucleated RBC % (auto) 0.0 (0.0-0.2) /100WBC PT 13.1 (11.1-13.3) SEC INR 1.1 (0.9-1.1) APTT 40.3 H (26.0-36.8) SEC Sodium 141 (135-145) mmol/L Potassium 3.5 (3.3-5.1) mmol/L Chloride 110 H (96-108) mmol/L Carbon Dioxide 23 (22-29) mmol/L Anion Gap 12 (12-20) BUN 8 L (9-16) mg/dL Creatinine 0.74 (0.5-1.4) mg/dL Estim Creat Clear Calc 139.7 Estimated GFR > 60 Random Glucose 97 (60-115) mg/dL Calcium 9.5 D (8.4-10.2) mg/dL Magnesium 2.1 (1.6-2.6) mg/dL Total Bilirubin 0.7 (0.0-1.0) mg/dL AST 36 H (5-31) U/L ALT 29 (0-31) U/L Alkaline Phosphatase 81 (39-117) U/L Total Protein 7.3 (6.5-8.0) g/dL Albumin 3.9 (3.5-5.0) g/dL Beta HCG, Quant < 2 mIU/mL Radiology Impression Discussion of test interpretation with radiology: I have reviewed the radiologist's reading. (I have reviewed the radiologists reading and agree) External Record Review External record reviewed: Outpatient record Chronic Conditions Patient?s care impacted by: Diabetes and Other (obesity) Discharge Plan Discharge Clinical Impression: Dysfunctional uterine bleeding Patient Disposition: Home, Self-Care Instructions: Dysfunctional Uterine Bleeding (ED) Prescriptions: No Action ibuprofen 800 mg tablet 800 mg PO TID PRN (Reason: for headache) Qty: 270 1RF cetirizine 10 mg tablet 10 mg PO DAILY PRN (Reason: allergy symptoms) 90 Days Qty: 90 1RF escitalopram oxalate 10 mg tablet 10 mg PO DAILY 90 Days Qty: 90 1RF bupropion HCl 200 mg tablet sustained-release 12 hr 200 mg PO BID Qty: 180 1RF trazodone 100 mg tablet 100 mg PO BEDTIME PRN (Reason: for insomnia) Qty: 90 1RF topiramate 25 mg tablet 25 mg PO BEDTIME 90 Days Qty: 90 1RF metformin 500 mg tablet extended release 24 hr 1,000 mg PO BID Qty: 360 1RF Mirena 20 mcg/24 hours (7 yrs) 52 mg intrauterine device intrauterine Gemtesa 75 mg tablet 75 mg PO DAILY Qty: 90 2RF Referrals: César Groves MD [Physician] - 5 days Print Language: Kyrgyz
[2024-03-08 14:59] LABS: MANUAL DIFF FLAG NO
[2024-03-08 15:00] LABS: Basophils Absolute Auto 0.1 X10*3/uL (0.0-0.2); Basophils Percent Auto 0.5 % (0-2); Eosinophils Percent Auto 0.3 % (0-4); Hematocrit 38.9 % (37.0-47.0); Hemoglobin 13.7 g/dl (12.0-16.0); Imm Gran Abs Auto 0.07 X10*3/uL (0.00-0.03); Imm Gran Pct Auto 0.6 % (0.0-0.4); Lymphocytes Absolute Auto 3.1 X10*3/uL (1.2-4.9); Lymphocytes Percent Auto 25.3 % (20-40); Mean Corpuscular HGB Conc 35.2 g/dl (31.0-35.0); Mean Corpuscular Hemoglobin 29.5 pg (27.0-33.0); Mean Corpuscular Volume 83.8 fL (80.0-98.0); Mean Platelet Volume 9.4 fL (9.4-12.3); Monocytes Absolute Auto 0.6 X10*3/uL (0.1-1.2); Monocytes Percent Auto 4.8 % (2-11); Neutrophils Absolute Auto 8.4 x10*3/uL (2.0-8.3); Neutrophils Percent Auto 68.5 % (45-73); Platelet Count 293 X10*3/uL (160-400); Red Blood Count 4.64 X10*6/uL (4.20-5.50); White Blood Count 12.2 X10*3/uL (4.8-10.8)
[2024-03-08 15:19] LABS: INTERNATIONAL NORM RATIO 1.1 (0.9-1.1); Prothrombin Time 13.1 SEC (11.1-13.3)
[2024-03-08 15:22] LABS: Partial Thromboplastin Time 40.3 SEC (26.0-36.8)
[2024-03-08 15:30] LABS: Alanine Aminotransferase 29 U/L (0-31); Albumin Level 3.9 g/dL (3.5-5.0); Alkaline Phosphatase 81 U/L (39-117); Anion Gap 12 (12-20); Aspartate Amino Transferase 36 U/L (5-31); Bilirubin Total 0.7 mg/dL (0.0-1.0); Blood Urea Nitrogen 8 mg/dL (9-16); Calcium 9.5 mg/dL (8.4-10.2); Carbon Dioxide 23 mmol/L (22-29); Chloride 110 mmol/L (96-108); Creatinine Clr Calc Pharmacy 139.7; Estimated Glomerular Filt Rate > 60; Glucose Random 97 mg/dL (60-115); Magnesium 2.1 mg/dL (1.6-2.6); Potassium 3.5 mmol/L (3.3-5.1); Sodium 141 mmol/L (135-145); Total Protein 7.3 g/dL (6.5-8.0)
[2024-03-08 15:38] LABS: HCG Quantitative < 2 mIU/mL
[2024-03-08 23:38] VITALS: BP 127/49; PULSE 75; RESP 16; TEMP 36.7; O2SAT 98
[2024-03-08 23:40] VITALS: BP 127/49; PULSE 75; RESP 16; TEMP 36.7; O2SAT 98
== END 2024-03-08 23:40 | disposition home or self-care (01) ==
PROVIDERS: Physician Assistant Medical; Emergency Provider Emergency Medicine; PCP Internal Medicine
DX: N93.8 Other specified abnormal uterine and vaginal bleeding (principal); R10.2 Pelvic and perineal pain; Z79.899 Other long term (current) drug therapy
CPT/HCPCS: 36415; 76830; 76856; 80053; 83735; 84702; 85025; 85610; 85730; 99284

== ENCOUNTER 2024-03-25 09:45 | Outpatient (AMB) | payer MEDICARE, MEDICAID, SELFPAY ==
[2024-03-25 09:47] VITALS: BP 118/64; PULSE 77; O2SAT 95; BMI 47.3
--- NOTE | 2024-03-25 09:47 | MHC.PC.OV ---
Vital Signs 03/25/24 09:47 Height 5 ft 6 in Weight 293 lb BMI 47.3 BP 118/64 Blood Pressure Location Lt brachial Position Sitting Pulse 77 Pulse Source Pulse Oximeter Pulse Oximetry (%) 95 Oxygen Delivery Method Room Air Intake Visit Reasons: [facility] 03/08 Vaginal bleeding Electronic Funds Transfer Coordinator Required: No Accompanied by: Self / Same As Patient Allergies No Known Allergies Allergy (Verified 03/25/24 09:47) Medication List - Last Reconciled 03/25/24 by Vonda Styles PA-C bupropion HCl SR 200 mg PO BID cetirizine 10 mg PO DAILY PRN 90 days escitalopram oxalate 10 mg PO DAILY 90 days ibuprofen 800 mg PO TID PRN levonorgestrel (Mirena) intrauterine metformin ER 1,000 mg (2 x 500 mg) PO BID topiramate 25 mg PO BEDTIME 90 days trazodone 100 mg PO BEDTIME PRN vibegron (Gemtesa) 75 mg PO DAILY Tobacco use date assessed: 03/25/24 Dental Screening Dental Screen Date: 03/25/24 Did you have a dental visit in the last 12 months?: Yes Did you have a dental problem in the last 6 months where you did not have access to dental care?: No Was dental information given to patient?: Patient has dentist HPI [facility] 03/08 Vaginal bleeding HPI Details 43-year-old female with past medical history of impaired glucose tolerance, PCOS, anxiety, nonalcoholic steatohepatitis last seen by Dr. Aldridge coming in for hospital follow up. 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 Patient states she went to the ER that day because she was having 3 weeks of heavy bleeding with blood clots. Previously she had not had a period in 4 years and she did have her IUD in place for that amount of time. The IUD she has a Liletta and she was told it is good for 10 years. She has not yet scheduled an appointment with Gynecology. Her bleeding did stop 03/10/2024 and she has not had bleeding since. She denies any fevers or cramps. [facility] Medical History JUNAID III (cervical intraepithelial neoplasia grade III) with severe dysplasia History of COVID-19 IAN (obstructive sleep apnea) Morbid obesity with BMI of 50.0-59.9, adult Allergic rhinitis Migraine Morbid obesity with BMI of 45.0-49.9, adult Depression Anxiety Insomnia Elevated LFTs PCOS (polycystic ovarian syndrome) Impaired fasting glucose Surgical History History of esophagogastroduodenoscopy (EGD) Hx of colonoscopy Previous section Family History Father No problems noted. Mother Diverticulitis Other Substance abuse Social History Household Members: Children Housing: Apartment Are you a primary director of critical care to a significant other at home: No Do you presently have visiting nurse or other home services: No Alcohol intake: former Patient Tobacco Use Status: Never used Tobacco Tobacco use type: Cigarette e-Cigarette/Vaping Use: Never Used Second Hand Smoke Exposure: No Advance Directives Date on File: 04/14/20 service: No Current occupational status: employed Cognitive needs: No Hearing needs: No Vision needs: No Female Reproductive History Menstrual Age of Menarche: 12 Questionnaire PHQ-9 Over the last 2 weeks, how often have you been bothered by any of the following problems? 1. Little interest or pleasure in doing things: nearly every day 2. Feeling down, depressed, or hopeless: more than half the days 3. Trouble falling or staying asleep, or sleeping too much: nearly every day 4. Feeling tired or having little energy: nearly every day 5. Poor appetite or overeating: nearly every day 6. Feeling bad about yourself - or that you are a failure or have let yourself or your family down: more than half the days 7. Trouble concentrating on things, such as reading the newspaper or watching television: more than half the days 8. Moving or speaking so slowly that other people could have noticed. Or the opposite - being so fidgety or restless that you have been moving around a lot more than usual: more than half the days 9. Thoughts that you would be better off or of hurting yourself in some way: not at all Total score: 20 Depression Screening Interpretation: Positive Depression Screening Follow-up: Existing condition and In treatment (does not wish to change Rx at this time but will call if anything changes) Depression Screening Done: Yes 12163 - PHQ-9 Billing: Yes Source: Developed by Drs. Nathan Peck, Janie Apodaca, Clive Powers and colleagues, with an educational odette from [employer]. Thrive Questionnaire Date Thrive assessed: 03/25/24 I am a: Patient What is your living situation today?: I have a steady place to live Within the past 12 months, did the food you bought not last and you didn't have the money to get more?: Never true Within the past 12 months, did you worry whether your food would run out before you got money to buy more?: Never true Do you have trouble paying for medicines?: No Do you have trouble getting transportation to medical appointments?: No Do you have trouble paying your heating and electricity bill?: No Do you have trouble taking care of your child, family member or friend?: No Do you have trouble with day-to-day activities such as bathing, preparing meals, shopping, managing finances, etc.?: No Are you currently unemployed and looking for a job?: No Are you interested in more education?: No Please select the resources that you would like help with: None THRIVE Score: 0 AUDIT C Alcohol Use Questionnaire (AUDIT-C) 1. How often do you have a drink containing alcohol?: Never 3. How often do you have six or more drinks on one occasion?: Never Total Score: 0 Score Reviewed/Action Taken: Yes MARCK-7 AMB Questionnaire MARCK-7 Date MARCK - 7 assessed: 03/25/24 Feeling nervous, anxious, or on edge: 3 = Nearly every day Not being able to stop or control worryin = Nearly every day Worrying too much about different things: 3 = Nearly every day Trouble relaxin = Nearly every day Being so restless that it is hard to sit still: 3 = Nearly every day Becoming easily annoyed or irritable: 3 = Nearly every day Feeling afraid as if something awful might happen: 3 = Nearly every day Total MARCK-7 score (0-4 normal; 5-9 mild; 10-14 moderate; 15-21 severe): 21 Source: Developed by Drs. Nathan Peck, Janie Apodaca, Clive Powers and colleagues, with an educational odette from [employer]. MARCK-7 Assessment Billing MARCK-7 Assessment Tool: MARCK-7 Assessment 83495 Review of Systems Const Denies body aches, Denies chills and Denies fever(s) Eyes Reports no additional complaints ENT Denies dizziness Card Denies chest pain, Denies lightheadedness and Denies dyspnea Resp Denies dyspnea GI Denies abdominal pain, Denies nausea and Denies vomiting Denies abnormal vaginal bleeding, Reports amenorrhea, Denies hematuria, Denies pelvic pain and Denies vaginal discharge Musc Reports no additional complaints and Denies abnormal gait Skin/Breast Reports system reviewed and no additional complaints, except as documented Neuro Denies abnormal gait and Denies dizziness Psych Reports no additional complaints Physical exam (Primary Care) Vital Signs: Oxygen Delivery Method Room Air 03/25/24 09:47 BMI result Body Mass Index 47.3 Tobacco/Smoking Status: Tobacco use Status Tobacco use date assessed 05/26/23 03/25/24 09:49 Patient Tobacco Use Status Never used Tobacco 03/25/24 09:49 e-Cigarette/Vaping Use Currently Using 03/25/24 09:49 Depression Screening Interpretation: Positive Depression Screening Follow-up: Existing condition and In treatment (does not wish to change Rx at this time but will call if anything changes) Thrive Assessment: Date of Thrive Assessment Date Thrive assessed 05/26/23 03/25/24 09:49 Const General: cooperative, healthy appearing, comfortable and no acute distress Orientation/consciousness: patient oriented x3 HENMT Head: Yes normocephalic Ears: hearing grossly normal bilaterally General nose exam: Normal external nose present Eyes General: appearance normal, both eyes and all related structures Conjunctivae: conjunctivae normal Neck Neck: Yes full ROM and Yes no lymphadenopathy Resp Effort & Inspection: normal respiratory effort Auscultation: clear to auscultation bilaterally, no crackles, no rales, no rhonchi and no wheezes Cardio Rate: regular rate Rhythm: regular rhythm GI Inspection: Yes normal to inspection Palpation (GI): Soft to palpation, not firm, nontender, no guarding and not rigid Skin General skin exam: no rashes or lesions noted Neuro General: patient oriented x3 Gait exam (Neuro): Normal gait present Extrem General: Yes normal to inspection, Yes full ROM and No edema Psych Affect: normal affect Attitude: cooperative Insight: Good insight present (Psych) Judgement: Good judgement present (Psych) Assessment and Plan Assessment & Plan (1) Abnormal uterine and vaginal bleeding, unspecified: Code(s): N93.9 - Abnormal uterine and vaginal bleeding, unspecified Plan: Patient states she has not had any bleeding since a few days after the ER and denies any cramps or fevers. Advised patient to continue monitoring her symptoms and if her bleeding continues to reach out to our office or gynecology. Also advised patient to follow up with gynecology for an appointment. She is also feeling very fatigued and would like a workup for anemia. Blood work ordered and we will review with patient once results are available and follow up in 2 months. Plan This note was constructed using voice recognition software. While every effort has been made to ensure accuracy and brownfield redevelopment specialist, still areas may have been included sometimes these areas may affect the content or meeting of the given symptoms. Total time spent caring for the patient today was 20 minutes. This includes time spent before the visit reviewing the chart, time spent during the visit, and time spent after the visit and documentation. Orders: Orders Vitamin B12 and Folate Today N93.9 - Abnormal uterine and vaginal bleeding, unspecified Vitamin D 25-OH (D2 and D3) Today Z00.00 - Encounter for general adult medical examination without abnormal findings Complete Blood Count Auto Diff Today N93.9 - Abnormal uterine and vaginal bleeding, unspecified IRON PROFILE Today N93.9 - Abnormal uterine and vaginal bleeding, unspecified Coding Level of Care Code Est Pt Level 3 (50700) Diagnoses Abnormal uterine and vaginal bleeding, unspecified N93.9 Additional Codes MARCK-7 Assessment Billing - MARCK-7 Assessment Tool: MARCK-7 Assessment 87681 ([id number])
== END 2024-03-25 10:11 | disposition home or self-care (01) ==
PROVIDERS: PCP Internal Medicine
DX: N93.9 Abnormal uterine and vaginal bleeding, unspecified (principal); E66.01 Morbid (severe) obesity due to excess calories; Z68.42 Body mass index [BMI] 45.0-49.9, adult
CPT/HCPCS: 99213

== ENCOUNTER 2024-03-25 10:15 | Outpatient (REF) | payer MEDICARE, MEDICAID, SELFPAY ==
[2024-03-25 10:30] LABS: MANUAL DIFF FLAG NO
[2024-03-25 11:00] LABS: Basophils Absolute Auto 0.1 X10*3/uL (0.0-0.2); Basophils Percent Auto 0.6 % (0-2); Eosinophils Percent Auto 0.3 % (0-4); Hematocrit 40.7 % (37.0-47.0); Hemoglobin 13.8 g/dl (12.0-16.0); Imm Gran Abs Auto 0.05 X10*3/uL (0.00-0.03); Imm Gran Pct Auto 0.5 % (0.0-0.4); Lymphocytes Absolute Auto 2.2 X10*3/uL (1.2-4.9); Lymphocytes Percent Auto 20.4 % (20-40); Mean Corpuscular HGB Conc 33.9 g/dl (31.0-35.0); Mean Corpuscular Hemoglobin 29.1 pg (27.0-33.0); Mean Corpuscular Volume 85.9 fL (80.0-98.0); Monocytes Absolute Auto 0.4 X10*3/uL (0.1-1.2); Monocytes Percent Auto 3.5 % (2-11); Neutrophils Absolute Auto 8.1 x10*3/uL (2.0-8.3); Neutrophils Percent Auto 74.7 % (45-73); Platelet Count 283 X10*3/uL (160-400); Red Blood Count 4.74 X10*6/uL (4.20-5.50); Red Cell Distribution Width 13.2 % (11.0-16.0); White Blood Count 10.8 X10*3/uL (4.8-10.8)
[2024-03-25 11:18] LABS: Iron 53 mcg/dL (30-160); Percent Iron Saturation 21 % (15-50); Total Iron Binding Capacity 250 mcg/dL (228-428); Unsaturated Iron Binding 197 ug/dL
[2024-03-25 11:48] LABS: Folate 7.3 ng/mL (> or = 4.0); Vitamin B12 292 pg/mL (200-900)
[2024-03-31 06:48] LABS: Vitamin D 25-OH, D2 <4 ng/mL; Vitamin D 25-OH, D3 21 ng/mL; Vitamin D 25-OH, Total 21 ng/mL (30-100)
== END 2024-03-25 10:16 | disposition home or self-care (01) ==
LOC: HO.LAB 10:15
PROVIDERS: PCP Internal Medicine
DX: Z00.00 Encounter for general adult medical examination without abnormal findings (principal); N93.9 Abnormal uterine and vaginal bleeding, unspecified
CPT/HCPCS: 36415; 82306; 82607; 82746; 83540; 85025

== ENCOUNTER 2024-04-07 09:34 | Outpatient (REF) | payer MEDICARE, MEDICAID, SELFPAY ==
[2024-04-07 17:03] LABS: CT PCR NOT DETECTED (Not Detect.); NG PCR NOT DETECTED (Not Detect.)
[2024-04-12 18:08] LABS: HPV mRNA E6/E7 Detected (Not Detected)
== END 2024-04-07 09:35 | disposition home or self-care (01) ==
LOC: HO.LNP 09:34
PROVIDERS: PCP Internal Medicine; Visit Provider Obstetrics & Gynecology
DX: N93.9 Abnormal uterine and vaginal bleeding, unspecified (principal); N87.0 Mild cervical dysplasia
CPT/HCPCS: 36415; 84146; 84443; 84702; 87491; 87591; 87624; 88175; 99212

== ENCOUNTER 2024-04-07 09:34 | Outpatient (AMB) | payer MEDICARE, MEDICAID, SELFPAY ==
--- NOTE | 2024-04-07 09:44 | MHC.OFFVIS ---
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 The bleeding was heavy associated with pelvic cramping. The patient went to the emergency room in the following workup was done H&H was within normal, hCG less than 2 03/06 pelvic ultrasound showed the following: 'Uterus: The uterus is anteverted and measures 8.1 x 3.1 x 3.2 cm. Endometrium is obscured by the intrauterine device which appears centered within the endometrial canal. The uterus is smooth in contour and has normal myometrial echogenicity. No visible fibroid. Adnexa: There is no pelvic ascites or fluid collection. Right ovary measures 3.1 x 2.7 x 2.3 cm. Left ovary is not visualized. No large left adnexal mass. 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 Mother Diverticulitis Other Substance abuse Social History Household Members: Children Housing: Apartment Are you a primary palliative care coordinator to a significant other at home: No Do you presently have visiting nurse or other home services: No Alcohol intake: former Patient Tobacco Use Status: Never used Tobacco Tobacco use type: Cigarette e-Cigarette/Vaping Use: Never Used Second Hand Smoke Exposure: No Advance Directives Date on File: 04/14/20 service: No Current occupational status: employed Cognitive needs: No Hearing needs: No Vision needs: No Female Reproductive History Menstrual Age of Menarche: 12 Review of Systems Const All systems reviewed & are unremarkable except as noted in HPI and below Card Reports as per HPI Resp Reports as per HPI GI Reports as per HPI and Reports no additional complaints Reports as per HPI Physical Exam Vital Signs: BMI result Body Mass Index 47.0 Const General: cooperative, healthy appearing and comfortable Chest Chest palpation & inspection: normal inspection of the chest and normal palpation of entire chest wall Breast/axilla inspection: normal inspection of the breasts and normal inspection of the axillae Breast/axilla palpation: normal palpation of the breasts, normal palpation of the axillae and no axillary lymphadenopathy Resp Effort & Inspection: normal respiratory effort Auscultation: clear to auscultation bilaterally Percussion: percussion normal Cardio Palpation: normal PMI Rate: regular rate Rhythm: regular rhythm Heart sounds: no murmurs and no rubs Peripheral pulses: Peripheral pulses 2+ throughout GI Inspection: Yes normal to inspection Palpation (GI): Soft to palpation, nontender, no guarding, not rigid and No hepatosplenomegaly present Percussion: Yes normal to percussion Auscultation: normal bowel sounds Rectal Exam - Female: deferred General: Yes bladder normal to palpation External Female Exam: No lesion Speculum Exam - Vagina: normal appearance of the vagina, normal palpation, normal vaginal discharge and not erythematous Speculum Exam - Cervix: normal appearance of the cervix, normal palpation and Other cervical findings present (IUD string seen) Bimanual exam- vagina & uterus: normal bimanual exam, normal palpation, uterine size normal, bladder normal to palpation, consistency normal and normal palpation Bimanual Exam- Adnexa, other: normal adnexae, no masses and no tenderness Assessment & Plan Assessment & Plan (1) Abnormal uterine bleeding (AUB): Comment: On Liletta inserted on 09/30 Code(s): N93.9 - Abnormal uterine and vaginal bleeding, unspecified Category: Medical Plan: Co testing done, GC and chlamydia taken TSH, prolactin, HCG, ordered. Discussed with the patient the different causes of abnormal bleeding including thyroid disorders, uterine and ovarian pathology, endometrial hyperplasia, carcinoma and other potential causes. Discussed with the patient the work up including CBC (to r/o anemia), TSH, prolactin, pelvic Ultrasound, endometrial biopsy to r/o endometrial pathology. All questions answered and the patient verbalized understanding. Instructed the patient to schedule an appointment for an endometrial biopsy in 2 weeks. (2) Dysplasia of cervix, low grade (JUNAID 1): Code(s): N87.0 - Mild cervical dysplasia Category: Medical Plan: Co testing done Coding Level of Care Code Est Pt Level 3 (49216) Diagnoses Abnormal uterine bleeding (AUB) N93.9 Dysplasia of cervix, low grade (JUNAID 1) N87.0
[2024-04-07 09:47] VITALS: BMI 47.0
== END 2024-04-07 10:33 | disposition home or self-care (01) ==
LOC: HO.HWS 09:34
PROVIDERS: PCP Internal Medicine; Visit Provider Obstetrics & Gynecology
DX: N93.9 Abnormal uterine and vaginal bleeding, unspecified (principal); N87.0 Mild cervical dysplasia
CPT/HCPCS: 99213

== ENCOUNTER 2024-04-07 10:15 | Outpatient (REF) | payer MEDICARE, MEDICAID, SELFPAY ==
[2024-04-07 12:30] LABS: HCG Quantitative < 2 mIU/mL; TSH reflex Free T4 1.83 uIU/mL (0.32-4.0)
[2024-04-08 07:33] LABS: Prolactin 15.6 ng/mL
== END 2024-04-07 10:16 | disposition home or self-care (01) ==
LOC: HO.LAB 10:15
PROVIDERS: PCP Internal Medicine; Visit Provider Obstetrics & Gynecology
DX: N93.9 Abnormal uterine and vaginal bleeding, unspecified (principal)
CPT/HCPCS: 36415; 84146; 84443; 84702

== ENCOUNTER 2024-04-19 14:49 | Outpatient (AMB) | payer MEDICARE, MEDICAID, SELFPAY ==
[2024-04-19 14:50] VITALS: BMI 47.0
--- NOTE | 2024-04-19 14:50 | MHC.OFFVIS ---
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 Mother Diverticulitis Other Substance abuse Social History Household Members: Children Housing: Apartment Are you a primary long term care social worker to a significant other at home: No Do you presently have visiting nurse or other home services: No Alcohol intake: former Patient Tobacco Use Status: Never used Tobacco Tobacco use type: Cigarette e-Cigarette/Vaping Use: Never Used Second Hand Smoke Exposure: No Advance Directives Date on File: 04/14/20 service: No Current occupational status: employed Cognitive needs: No Hearing needs: No Vision needs: No Female Reproductive History Menstrual Age of Menarche: 12 Review of Systems Const All systems reviewed & are unremarkable except as noted in HPI and below Reports as per HPI and Reports no additional complaints GI Reports no additional complaints Reports no additional complaints Physical Exam Vital Signs: BMI result Body Mass Index 47.0 Office Procedures Colposcopy Colposcopy: Pre-Procedure Counseling: Before beginning the procedure, I conducted comprehensive counseling with the patient. We thoroughly discussed the procedure itself, including its details, alternatives, and all associated risks. This included but not limited to the following complications such as bleeding, infection, and injury to the vagina, bladder, and vessels, as well as the potential need for transfusion with all its associated risks. Subsequently, the patient sign the consent. Pap smear result: LSIL. Urine test in office = Negative Procedure: During the procedure, the following steps were performed: A speculum was inserted, and acetic acid was applied. Colposcopy was conducted, allowing visualization of the transformation zone. Acetowhite lesions were identified at the 5+6+12 o'clock position. Cervical biopsies were obtained from the 5+6+12 o'clock position, followed by an endocervical curettage (ECC). Vaginoscopy of the upper vagina revealed no evidence of aceto-white lesions. Hemostasis was achieved using Monsel solution, and the patient tolerated the procedure well. Post-Procedure Instructions: The patient was advised to promptly contact the office or the after hours answering service or go to the emergency room if experiencing a temperature exceeding 100.4?F, abdominal pain, nausea/vomiting, or bleeding. Additionally, the patient was instructed to abstain from vaginal intercourse and bathtub use. The patient confirmed understanding of these instructions. Discharge Instructions: The patient was instructed to schedule a follow-up appointment in 2 weeks for further evaluation and management. Please note that this note was generated using a voice recognition program, and errors may have occurred during insurance office supervisor. [id number]-[id number] of cervix including upper vagina with biopsy and ECC Procedure code (CPT) selection complete Endometrial Biopsy Details: The patient was counseled regarding the indication and benefits of endometrial sampling to rule out endometrial pathology including not limited to endometrial hyperplasia or endometrial cancer and others; The alternatives (Either do nothing vs. hysteroscopy D&C) & the risks were discussed with the patient including but not limited: pain, uterine perforation, bleeding, infection, possible injury to bladder, bowel, ureter, possible need for blood transfusion with all its possible risks. The patient verbalized understanding all questions answered and signed consent. Urine test done in the office was negative The patient was placed into the dorsal lithotomy position; a speculum was inserted in the vagina. Using aseptic technique for the procedure, the cervix was cleansed with Betadine. The anterior lip of the cervix was grasped with a single tooth tenaculum. The uterus was sounded to 7 cm with a 4 mm Pipelle was used. Tissues samples were obtained and placed in formalin, in a patient labeled container and sent to the pathology department. At the end of the procedure, there was minimal bleeding noted The patient tolerated the procedure well and was discharged in good condition with the following instructions: Nothing in the vagina until the bleeding stops. No sex until the bleeding stops, to call if any of the following occurs: fever (>100.4), flu-like symptoms, abdominal pain, heavy bleeding, four smelling vaginal discharge. The patient was instructed to schedule a Follow up appointment in 2 weeks to discuss pathology results of the biopsy and treatment options. This note was generated with a voice recognition program. Some errors may have been overlooked during the review of this note. Sometimes these errors may affect the content or meaning of a given sentence. 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 the false positive/negative rate of a Pap smear as a screening test in detecting cervical cancer and the indication for a diagnostic test -colposcopy, biopsy, endocervical curettage. The patient verbalized understanding and agreed with the plan, all questions answered. Colpo/biopsy/ECC done, see procedure note (2) Abnormal uterine bleeding (AUB): Comment: On Milenaetta inserted on 09/30 Code(s): N93.9 - Abnormal uterine and vaginal bleeding, unspecified Category: Medical Plan: EMB done, see procedure note Orders: Orders AMB Colposcopy Today R87.612 - Low grade squamous intraepithelial lesion on cytologic smear of cervix (LGSIL) AMB Endometrial Biopsy Today N93.9 - Abnormal uterine and vaginal bleeding, unspecified Coding Level of Care Code Procedure Only Diagnoses LGSIL on Pap smear of cervix R87.612 Abnormal uterine bleeding (AUB) N93.9 CPT Codes Colposcopy - CPT: 60255-Bgapnwpyj of cervix including upper vagina with biopsy and ECC ([id number]) Endometrial Biopsy - CPT: 97292-Rmrlhfuvanw Biopsy ([id number])
== END 2024-04-19 15:32 | disposition home or self-care (01) ==
PROVIDERS: PCP Internal Medicine; Visit Provider Obstetrics & Gynecology
DX: R87.612 Low grade squamous intraepithelial lesion on cytologic smear of cervix (LGSIL) (principal); N93.9 Abnormal uterine and vaginal bleeding, unspecified; Z32.02 Encounter for pregnancy test, result negative
CPT/HCPCS: 57454; 58110

== ENCOUNTER 2024-04-19 14:49 | Outpatient (REF) | payer MEDICARE, MEDICAID, SELFPAY | END 2024-04-19 14:50 | disposition home or self-care (01) | LOC: HO.LNP 14:49 | PROVIDERS: PCP Internal Medicine; Visit Provider Obstetrics & Gynecology | DX: N93.9 Abnormal uterine and vaginal bleeding, unspecified (principal); R87.612 Low grade squamous intraepithelial lesion on cytologic smear of cervix (LGSIL); R87.810 Cervical high risk human papillomavirus (HPV) DNA test positive | CPT/HCPCS: 57454; 58110; 81025; 88305 ==

== ENCOUNTER 2024-05-18 09:38 | Outpatient (AMB) | payer MEDICARE, MEDICAID, SELFPAY ==
[2024-05-18 09:39] VITALS: BP 126/74; BMI 47.0
--- NOTE | 2024-05-18 09:39 | A.OFFVIS_ITS ---
Vital Signs 05/18/24 09:39 Height 5 ft 6 in Weight 291 lb BMI 47.0 BP 126/74 Blood Pressure Location Lt brachial Position Sitting Intake Visit Reasons: Colpo/EMB Results Allergies No Known Allergies Allergy (Verified 05/18/24 09:39) HPI Comments Details: Presenting post colpo for follow-up. The patient is doing well with no complaints. The pathology showed the following: A. Endometrium, biopsy: Weakly secretory endometrium with pseudo-decidual stromal change characteristic of progestin effect; negative for atypia, hyperplasia or malignancy. B. Endocervix, curettage: Fragments of benign endocervical glands, negative for squamous intraepithelial lesion. C. Cervix, 5 o'clock, biopsy: Chronic cervicitis, negative for squamous intraepithelial lesion. D. Cervix, 6 o'clock, biopsy: Acute cervicitis, negative for squamous in traepithelial lesion. E. Cervix, 12 o'clock, biopsy: Acute cervicitis, negative for squamous intraepithelial lesion. COMMENT: The atypical cells noted on the patient's previous Pap ([id number]; LGSIL; HPV+) are not seen in the current biopsy material The following workup was done for AUB: H&H= 13.8/40.7 TSH, prolactin, hCG, GC and chlamydia were negative. Co testing LSIL/HPV E6 E7 positive, HPV 16/18/45 negative Mammogram was done in 09/06 was BI-RADS 1 Pelvic ultrasound showed the following: Uterus: The uterus is anteverted and measures 8.1 x 3.1 x 3.2 cm. Endometrium is obscured by the intrauterine device which appears centered within the endometrial canal. The uterus is smooth in contour and has normal myometrial echogenicity. No visible fibroid. Adnexa: There is no pelvic ascites or fluid collection. Right ovary measures 3.1 x 2.7 x 2.3 cm. Left ovary is not visualized. No large left adnexal mass. [facility] Medical History (Updated 05/18/24 @ 09:47 by César Groves MD) JUNAID III (cervical intraepithelial neoplasia grade III) with severe dysplasia History of COVID-19 IAN (obstructive sleep apnea) Morbid obesity with BMI of 50.0-59.9, adult Allergic rhinitis Migraine Morbid obesity with BMI of 45.0-49.9, adult Depression Anxiety Insomnia Elevated LFTs PCOS (polycystic ovarian syndrome) Impaired fasting glucose Surgical History History of esophagogastroduodenoscopy (EGD) Hx of colonoscopy Previous section Family History Father No problems noted. Mother Diverticulitis Other Substance abuse Social History Household Members: Children Housing: Apartment Are you a primary career placement services counselor to a significant other at home: No Do you presently have visiting nurse or other home services: No Alcohol intake: former Patient Tobacco Use Status: Never used Tobacco Tobacco use type: Cigarette e-Cigarette/Vaping Use: Never Used Second Hand Smoke Exposure: No Advance Directives Date on File: 04/14/20 service: No Current occupational status: employed Cognitive needs: No Hearing needs: No Vision needs: No Female Reproductive History Menstrual Age of Menarche: 12 Review of Systems Const All systems reviewed & are unremarkable except as noted in HPI and below Reports as per HPI and Reports no additional complaints GI Reports no additional complaints Reports no additional complaints Physical Exam Vital Signs: BMI result Body Mass Index 47.0 Assessment & Plan Assessment & Plan (1) Abnormal uterine bleeding (AUB): Comment: On Liletta inserted on 09/30 Code(s): N93.9 - Abnormal uterine and vaginal bleeding, unspecified Category: Medical Plan: Discussed with the patient the results of the work up done and options of treatment including Lysteda, BCP's, levo norgestrel IUD, endometrial ablation and hysterectomy. All pros, cons, risks and benefits if each option was discussed with the patient and the patient decided to stay on Liletta for now and get back to us in case abnormal bleeding recurs. All questions answered the patient verbalized understanding. 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 Discussed with the patient the sensitivity specificity, positive and negative predictive value in detecting cervical cancer in addition discussed the regression, persistence and progression rates. Recommended co-testing in 12 months, if cytology and or HPV are abnormal will proceed was colposcopy biopsy and endocervical curettage, if lesions gets worse or stays persistent for 2 years will proceed with loop electric excision proce dure. Instructions given to the patient to schedule a co test appointment in 1 year. All questions answered the patient verbalized understanding. Coding Level of Care Code Est Pt Level 3 (72426) Diagnoses Abnormal uterine bleeding (AUB) N93.9 LGSIL on Pap smear of cervix R87.612
== END 2024-05-18 09:59 | disposition home or self-care (01) ==
LOC: HO.HWS 09:39
PROVIDERS: PCP Internal Medicine; Visit Provider Obstetrics & Gynecology
DX: N93.9 Abnormal uterine and vaginal bleeding, unspecified (principal); R87.612 Low grade squamous intraepithelial lesion on cytologic smear of cervix (LGSIL)
CPT/HCPCS: 99213

== ENCOUNTER → 2024-05-18 09:38 | Outpatient (BNVA) | payer MEDICARE, MEDICAID, SELFPAY | PROVIDERS: PCP Internal Medicine; Visit Provider Obstetrics & Gynecology | DX: N93.9 Abnormal uterine and vaginal bleeding, unspecified (principal); R87.612 Low grade squamous intraepithelial lesion on cytologic smear of cervix (LGSIL) | CPT/HCPCS: 99212 ==

== ENCOUNTER 2024-09-14 09:52 | Outpatient (REF) | payer MEDICARE, MEDICAID, SELFPAY ==
[2024-09-14 10:21] LABS: MANUAL DIFF FLAG NO
[2024-09-14 11:00] LABS: Basophils Absolute Auto 0.1 X10*3/uL (0.0-0.2); Basophils Percent Auto 0.7 % (0-2); Eosinophils Absolute Auto 0.1 X10*3/uL (0.0-0.4); Eosinophils Percent Auto 0.8 % (0-4); Hematocrit 43.2 % (37.0-47.0); Hemoglobin 14.3 g/dl (12.0-16.0); Imm Gran Abs Auto 0.08 X10*3/uL (0.00-0.03); Imm Gran Pct Auto 0.7 % (0.0-0.4); Lymphocytes Absolute Auto 2.9 X10*3/uL (1.2-4.9); Lymphocytes Percent Auto 26.1 % (20-40); Mean Corpuscular HGB Conc 33.1 g/dl (31.0-35.0); Mean Corpuscular Hemoglobin 28.3 pg (27.0-33.0); Mean Corpuscular Volume 85.4 fL (80.0-98.0); Mean Platelet Volume 9.8 fL (9.4-12.3); Monocytes Absolute Auto 0.5 X10*3/uL (0.1-1.2); Monocytes Percent Auto 4.5 % (2-11); Neutrophils Absolute Auto 7.4 x10*3/uL (2.0-8.3); Neutrophils Percent Auto 67.2 % (45-73); Platelet Count 295 X10*3/uL (160-400); Red Blood Count 5.06 X10*6/uL (4.20-5.50); Red Cell Distribution Width 13.2 % (11.0-16.0)
[2024-09-14 11:16] LABS: Estimated Average Glucose 117 mg/dL; Hemoglobin A1C 144.1208 umol/L; Hemoglobin A1c % 5.7 % (<6.0); Total Hemoglobin (HGBA1C) 3664.7106 umol/L
[2024-09-14 11:35] LABS: Alanine Aminotransferase 31 U/L (0-31); Albumin Level 3.7 g/dL (3.5-5.0); Alkaline Phosphatase 100 U/L (39-117); Anion Gap 10 (12-20); Aspartate Amino Transferase 36 U/L (5-31); Bilirubin Total 0.4 mg/dL (0.0-1.0); Blood Urea Nitrogen 9 mg/dL (9-16); Calcium 8.8 mg/dL (8.4-10.2); Carbon Dioxide 25 mmol/L (22-29); Chloride 111 mmol/L (96-108); Cholesterol 165 mg/dL (<200); Estimated Glomerular Filt Rate > 60; Glucose Fasting 126 mg/dL (60-99); HDL Cholesterol 50 mg/dL (>40); LDL Cholesterol Calculated 102 mg/dL (<100); Potassium 3.7 mmol/L (3.3-5.1); Sodium 142 mmol/L (135-145); Total Protein 7.6 g/dL (6.5-8.0); Triglycerides 65 mg/dL (<150)
[2024-09-14 11:51] LABS: TSH reflex Free T4 1.99 uIU/mL (0.32-4.0); Vitamin D 25-OH Total 14.1 ng/mL (>30)
[2024-09-14 14:48] LABS: Appearance Urine Cloudy; Color Urine Dark Yellow; Glucose Urine UA Negative (Negative); Leukocyte Esterase Urine Small (1+) (Negative); Nitrite Urine Negative (Negative); PH 5.5 (5.0-9.0); Specific Gravity - Urine >= 1.030 (1.005-1.025); UMIC TRIGGER UACC YES; Urine Blood Trace (Negative); Urine Ketones Trace mg/dL (Negative); Urine Protein Trace mg/dL (Neg-Trace)
[2024-09-14 14:53] LABS: Bacteria Urine 4+ (None Seen); Hyaline Casts Urine 0-2 /LPF (0-2); RBC Urine 0-2 /HPF (0-2); UACC Culture Trigger YES; WBC Urine 21-50 /HPF (0-5)
== END 2024-09-14 09:53 | disposition home or self-care (01) ==
LOC: HO.LAB 09:52
PROVIDERS: PCP Internal Medicine; Visit Provider Internal Medicine
DX: D64.9 Anemia, unspecified (principal); E78.00 Pure hypercholesterolemia, unspecified; E55.9 Vitamin D deficiency, unspecified; R73.01 Impaired fasting glucose; R30.0 Dysuria
CPT/HCPCS: 36415; 80053; 80061; 81001; 82306; 83036; 84443; 85025; 87086

== ENCOUNTER 2024-09-15 08:17 | Outpatient (AMB) | payer MEDICARE, MEDICAID, SELFPAY ==
[2024-09-15 08:21] VITALS: BP 118/68; PULSE 77; TEMP 36.6; O2SAT 96; BMI 47.4
--- NOTE | 2024-09-15 08:21 | A.OFFPC_ITS ---
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 Accompanied by: Self / Same As Patient Allergies No Known Allergies Allergy (Verified 09/15/24 08:31) Medication List - Last Reconciled 09/15/24 by RUSTY Mendenhall bupropion HCl SR 200 mg PO BID cetirizine 10 mg PO DAILY PRN 90 days cholecalciferol (vitamin D3) 25 mcg PO DAILY escitalopram oxalate 10 mg PO DAILY 90 days ibuprofen 800 mg PO TID PRN levonorgestrel (Mirena) intrauterine metformin ER 1,000 mg (2 x 500 mg) PO BID sodium bicarb-sodium chloride (Neilmed Sinus Rinse Refill packet) Use the sinus rinse as directed 7 days topiramate 25 mg PO BEDTIME 90 days trazodone 100 mg PO BEDTIME PRN Tobacco use date assessed: 09/15/24 Dental Screening Dental Screen Date: 09/15/24 Did you have a dental visit in the last 12 months?: Yes Did you have a dental problem in the last 6 months where you did not have access to dental care?: No Was dental information given to patient?: Patient has dentist HPI annual physical HPI Details Patient is 44-year-old female presenting annual physical Dentist: up to date Eye: up to date Snellen: Right: Left: Corrected vision: glasses STI screening: Colonoscopy: mammogrom: up to date Pap Smer: up to date PHQ-9: Flu: declines COVID: x2-no booster Tdap: 2017 Diet: regular Exercise: walks reports that she been off her medications for about 2 months. Denies sob, chest pain, heart palpitation Reports that she is not eating regularly because her depression and anxiety are increased reports that she does not see a psychiatry or therapist-bad experiences in the past. She willing try to see someone again, reports that she feels like her energy is zero at times. right catholic angioma- reports that she had seen Derm in the past and was told that she would have to pay out pocket to have this removed, reports that it is getting bigger, she also have multiple skin tags-will refer to derm [facility] Medical History (Updated 09/19/24 @ 09:01 by RUSTY Mendenhall) JUNAID III (cervical intraepithelial neoplasia grade III) with severe dysplasia History of COVID-19 IAN (obstructive sleep apnea) Morbid obesity with BMI of 50.0-59.9, adult Allergic rhinitis Migraine Morbid obesity with BMI of 45.0-49.9, adult Depression Anxiety Insomnia Elevated LFTs PCOS (polycystic ovarian syndrome) Impaired fasting glucose Surgical History History of esophagogastroduodenoscopy (EGD) Hx of colonoscopy Previous section Family History Father No problems noted. Mother Diverticulitis Other Substance abuse Social History Household Members: Children Housing: Apartment Are you a primary healthcare customer service to a significant other at home: No Do you presently have visiting nurse or other home services: No Alcohol intake: former Patient Tobacco Use Status: Never used Tobacco Tobacco use type: Cigarette e-Cigarette/Vaping Use: Never Used Second Hand Smoke Exposure: No Advance Directives Date on File: 04/14/20 service: No Current occupational status: employed Cognitive needs: No Hearing needs: No Vision needs: No Female Reproductive History Menstrual Age of Menarche: 12 Questionnaire PHQ-9 Over the last 2 weeks, how often have you been bothered by any of the following problems? 1. Little interest or pleasure in doing things: several days 2. Feeling down, depressed, or hopeless: several days 3. Trouble falling or staying asleep, or sleeping too much: nearly every day 4. Feeling tired or having little energy: nearly every day 5. Poor appetite or overeating: several days 6. Feeling bad about yourself - or that you are a failure or have let yourself or your family down: several days 7. Trouble concentrating on things, such as reading the newspaper or watching television: several days 8. Moving or speaking so slowly that other people could have noticed. Or the opposite - being so fidgety or restless that you have been moving around a lot more than usual: several days 9. Thoughts that you would be better off or of hurting yourself in some way: several days Total score: 13 Depression Screening Interpretation: Positive Depression Screening Done: Yes 83496 - PHQ-9 Billing: Yes Source: Developed by Drs. Nathan Peck, Janie Apodaca, Clive Powers and colleagues, with an educational odette from [employer]. Thrive Questionnaire Date Thrive assessed: 09/15/24 I am a: Patient What is your living situation today?: I have a steady place to live Within the past 12 months, did the food you bought not last and you didn't have the money to get more?: Never true Within the past 12 months, did you worry whether your food would run out before you got money to buy more?: Never true Do you have trouble paying for medicines?: No Do you have trouble getting transportation to medical appointments?: No Do you have trouble paying your heating and electricity bill?: No Do you have trouble taking care of your child, family member or friend?: No Do you have trouble with day-to-day activities such as bathing, preparing meals, shopping, managing finances, etc.?: I choose not to answer this question Are you currently unemployed and looking for a job?: No Are you interested in more education?: No Please select the resources that you would like help with: None Currently or been in a relationship where the following occur: No concerns reported THRIVE Score: 0 AUDIT C Alcohol Use Questionnaire (AUDIT-C) 1. How often do you have a drink containing alcohol?: Never Total Score: 0 MARCK-7 AMB Questionnaire MARCK-7 Date MARCK - 7 assessed: 09/15/24 Feeling nervous, anxious, or on edge: 1 = Several days Not being able to stop or control worryin = Not at all Worrying too much about different things: 2 = More than half the days Trouble relaxin = More than half the days Being so restless that it is hard to sit still: 2 = More than half the days Becoming easily annoyed or irritable: 2 = More than half the days Feeling afraid as if something awful might happen: 0 = Not at all Total MARCK-7 score (0-4 normal; 5-9 mild; 10-14 moderate; 15-21 severe): 9 Source: Developed by Drs. Nathan Peck, Janie Apodaca, Clive Powers and colleagues, with an educational odette from [employer]. MARCK-7 Assessment Billing MARCK-7 Assessment Tool: MARCK-7 Assessment 71925 Review of Systems Const Details: Denies chills, Denies fatigue, Denies fever(s), Denies headache(s) and Denies weakness HEENT Denies change in vision, Denies dizziness, Denies headache(s), Denies hearing loss, Denies nasal congestion, Denies sinus pain, Denies sinus pressure and Denies sore throat Card Denies chest pain, Denies lightheadedness, Denies dyspnea and Denies other (palpitations) Resp Denies cough, Denies dyspnea and Denies wheezing GI Denies abdominal pain, Denies melena, Denies hematochezia, Denies change in bowel habits, Denies dyspepsia and Denies nausea Denies hematuria and Denies dysuria Musc Denies abnormal gait, Denies myalgias, Denies arthralgias, Denies numbness and Denies tingling Skin/Breast Denies rash, Denies unusual bruising and Denies wounds Reports skin lesion slightly increased in size and skin tags-reports seeing Dermatology and was told that she would have to pay [id number] to get lesion removed Neuro Denies abnormal gait, Denies dizziness, Denies headache(s), Denies memory loss, Denies numbness, Denies Sensory deficit (Neuro), Denies tingling and Denies weakness Psych Reports anxiety, reports depression and Denies memory loss Endo Denies cold intolerance, Denies fatigue, Denies heat intolerance, Denies polydipsia and Denies polyuria Jonathan/Lymph Denies easy bleeding and Denies easy bruising Aller/Immun Denies wheezing Physical exam (Primary Care) Vital Signs: Last Vital Signs Temp 97.9 F 09/15/24 08:21 Pulse 77 09/15/24 08:21 BP 118/68 09/15/24 08:21 Pulse Ox 96 09/15/24 08:21 Oxygen Delivery Method Room Air 09/15/24 08:21 BMI result Body Mass Index 47.4 Tobacco/Smoking Status: Tobacco use Status Tobacco use date assessed 09/15/24 09/15/24 08:32 Patient Tobacco Use Status Never used Tobacco 09/15/24 08:32 Tobacco use type Cigarette 09/15/24 08:32 e-Cigarette/Vaping Use Never Used 09/15/24 08:32 PHQ-9: PHQ-9 Score PHQ-9: Total score 13 09/15/24 08:41 Depression Screening Interpretation: Positive Thrive Assessment: Date of Thrive Assessment Date Thrive assessed 09/15/24 09/15/24 08:32 Currently or been in a relationship where the following occur: No concerns reported Const Other: General: no acute distress, well developed, alert and awake Nutritional Appearance: well nourished Orientation/consciousness: patient oriented x3 HENMT Head: Yes normocephalic and Yes atraumatic Ears: hearing grossly normal bilaterally and TM's normal bilaterally General nose exam: Normal external nose present and Normal nares present Mouth: Normal oral and palatal mucosa present and moist mucous membranes Teeth and gingiva: dentition normal Throat: Yes oropharynx normal Eyes Pupils: Equal, round and reactive pupils present and Pupil accommodation reflex normal EOM: EOMs intact bilaterally Neck Neck: Yes normal visual inspection, Yes no lymphadenopathy and Yes trachea midline Thyroid: Thyroid normal Carotids: no bruits Lymphatic: no lymphadenopathy noted Chest Chest palpation & inspection: normal inspection of the chest Resp Effort & Inspection: normal respiratory effort Auscultation: clear to auscultation bilaterally Cardio Rate: regular rate Rhythm: regular rhythm Heart sounds: S1 normal heart sound present, S2 normal heart sound present, no gallops, no murmurs and no rubs Bruits: no abdominal aortic bruits and no carotid bruits GI Palpation (GI): No Abdominal aortic bruit present, Soft to palpation, nontender, No hepatosplenomegaly present and No Rebound tenderness present Auscultation: normal bowel sounds General: Yes no CVA tenderness Back/Spine/Pelvis Back: no CVA tenderness Cervical Spine: cervical ROM normal and No Cervical spine tenderness Thoracic/Lumbar Spine: thoraco-lumbar ROM normal, No pain with thoraco-lumbar ROM, No thoracic spinal tenderness and No lumbar spinal tenderness Skin General: warm and dry. Normal skin color. Normal skin turgor Lesions: angioma to right side of face, multiple skin tags on left side of face and neck Rashes: no rashes Trauma: no lacerations or abrasions Wounds: no wounds Nails: normal Neuro General: patient oriented x3, gait normal and CN's II-XI intact bilaterally Cranial nerves: Yes Equal, round and reactive pupils present Cognition (Neuro): normal cognition Gait exam (Neuro): Normal gait present Motor exam (neuro): 5/5 motor strength present throughout Sensory Exam: No Sensory deficit (Neuro) Deep tendon reflexes (DTR's): Right patellar reflex intensity grade: 2+ and Left patellar reflex intensity grade: 2+ Extrem General: Yes normal to inspection, No edema and No calf tenderness Psych Appearance: grossly normal Affect: normal affect Attitude: cooperative Thought process: Normal thought process present Results Reviewed Results Reviewed: Laboratory Tests 09/14/24 09/14/24 10:20 13:53 WBC 11.0 H RBC 5.06 Hgb 14.3 Hct 43.2 RDW 13.2 Plt Count 295 Sodium 142 Potassium 3.7 Chloride 111 H Carbon Dioxide 25 BUN 9 Creatinine 0.73 Estimated GFR > 60 Fasting Glucose 126 H Hemoglobin A1c % 5.7 AST 36 H ALT 31 Triglycerides 65 Cholesterol 165 LDL Cholesterol, Calc 102 H HDL Cholesterol 50 25-OH Vitamin D Total 14.1 L TSH 1.99 Urine Color Dark Yellow Urine Appearance Cloudy Urine pH 5.5 Ur Specific [place] >= 1.030 H Urine Protein Trace Urine Glucose (UA) Negative Urine Ketones Trace Urine Blood Trace H Urine Nitrite Negative Ur Leukocyte Esterase Small (1+) H Urine RBC 0-2 Urine WBC 21-50 H Ur Squamous Epith Cells 11-20 Urine Bacteria 4+ Hyaline Casts 0-2 Coding Level of Care Code Est Pt Prev Care 40-64y([id number]) Diagnoses Annual physical exam Z00.00 Impaired fasting glucose R73.01 PCOS (polycystic ovarian syndrome) E28.2 Elevated LFTs R79.89 Migraine without status migrainosus, not intractable, unspecified migraine type G43.909 Intractability: not intractable Migraine type: unspecified Status migrainosus presence: without status migrainosus Kidney lesion N28.9 Insomnia, unspecified type G47.00 Insomnia type: unspecified Anxiety F41.9 Depression, unspecified depression type F32.9 Depression Type: unspecified Morbid obesity with BMI of 45.0-49.9, adult E66.01; Z68.42 Vitamin D deficiency E55.9 Abnormal uterine bleeding (AUB) N93.9 Allergic rhinitis, unspecified seasonality, unspecified trigger J30.9 Allergic rhinitis trigger: unspecified Allergic rhinitis seasonality: unspecified Hemangioma of skin D18.01 Hemangioma site: skin Skin tag L91.8 Additional Codes MARCK-7 Assessment Billing - MARCK-7 Assessment Tool: MARCK-7 Assessment [id number] ([id number]) PHQ-9 - 57158 - PHQ-9 Billing: Yes ([id number]) Time Spent (min) 37 Assessment & Plan Assessment & Plan (1) Annual physical exam: Code(s): Z00.00 - Encounter for general adult medical examination without abnormal findings Plan: Preventative guidelines in recent labs reviewed with patient (2) Impaired fasting glucose: Code(s): R73.01 - Impaired fasting glucose Category: Medical Plan: Fasting glucose 126 with A1c 5.7% Reinforced a diet low in sugar/carbohydrate Patient was out of her medication for 2 months due to insurance issues Metformin 1000 mg b.i.d. refilled (3) PCOS (polycystic ovarian syndrome): Code(s): E28.2 - Polycystic ovarian syndrome Category: Medical Plan: Continue metformin a 1000 mg b.i.d. Follow up with OBGYN as scheduled (4) Elevated LFTs: Code(s): R79.89 - Other specified abnormal findings of blood chemistry Category: Medical Plan: AST slightly elevated, refrain Tylenol containing products and alcohol (5) Migraine: Code(s): G43.909 - Migraine, unspecified, not intractable, without status migrainosus Category: Medical Qualifiers: Intractability: not intractable Migraine type: unspecified Status migrainosus presence: without status migrainosus Qualified Code(s): G43.909 - Migraine, unspecified, not intractable, without status migrainosus Plan: continue topiramate 25 mg PO at bedtime and ibuprofen 800 mg t.i.d. p.r.n. (6) Kidney lesion: Code(s): N28.9 - Disorder of kidney and ureter, unspecified Category: Medical Plan: +) stable 1.2 cm left renal mass seen on her previous abdominal and pelvic CT (June 2020) that is unchanged from CT and US done in 2019? Repeat abdominal and pelvic CT done in February 2021 showed (+) complex right ovarian cyst; IUD well located within the anteverted uterus; mild constipation; NO radiopaque urolith or enhancing renal mass or hydroureteronephrosis seen Follow up with urology as scheduled for continuing evaluation and management (7) Insomnia: Code(s): G47.00 - Insomnia, unspecified Category: Medical Qualifiers: Insomnia type: unspecified Qualified Code(s): G47.00 - Insomnia, unspecified Plan: Reinforced proper sleep hygiene Continue trazodone 100 mg p.o. at bedtime (8) Anxiety: Code(s): F41.9 - Anxiety disorder, unspecified Category: Medical Plan: Reports that she is not eating regularly because her depression and anxiety are increased reports that she does not see a psychiatry or therapist-bad experiences in the past. She willing try to see someone again, reports that she feels like her energy is zero at times. Continue escitalopram 10 mg daily, bupropion HCI SR 200 mg b.i.d. (9) Depression: Code(s): F32.9 - Major depressive disorder, single episode, unspecified Category: Medical Qualifiers: Depression Type: unspecified Qualified Code(s): F32.9 - Major depressive disorder, single episode, unspecified Plan: Same as above (10) Morbid obesity with BMI of 45.0-49.9, adult: Code(s): E66.01 - Morbid (severe) obesity due to excess calories; Z68.42 - Body mass index [BMI] 45.0-49.9, adult Category: Medical Plan: Diet/exercise discussed in detail Encouraged to exercise for at least 30 minutes a day/5 days a week Healthy eating discussed. Encouraged to eat fruits/vegetables, protein- fish/baked chicken, and to avoid salty/fried foods, sweets, caffeine and carbohydrates. Encouraged to increase water intake 6-8 glasses a day (11) Vitamin D deficiency: Code(s): E55.9 - Vitamin D deficiency, unspecified Category: Medical Plan: Continue cholecalciferol 25 mcg daily (12) Abnormal uterine bleeding (AUB): Comment: On Liletta inserted on 09/30 Code(s): N93.9 - Abnormal uterine and vaginal bleeding, unspecified Category: Medical Plan: Follow up with OBGYN as needed (13) Allergic rhinitis: Code(s): J30.9 - Allergic rhinitis, unspecified Category: Medical Qualifiers: Allergic rhinitis trigger: unspecified Allergic rhinitis seasonality: unspecified Qualified Code(s): J30.9 - Allergic rhinitis, unspecified Plan: Continue to cetirizine 10 mg daily as needed (14) Angioma: Code(s): D18.00 - Hemangioma unspecified site Category: Medical Qualifiers: Hemangioma site: skin Qualified Code(s): D18.01 - Hemangioma of skin and subcutaneous tissue Plan: right catholic angioma- reports that she had seen Derm in the past and was told that she would have to pay out pocket to have this removed, reports that it is getting bigger-will refer to derm (15) Skin tag: Code(s): L91.8 - Other hypertrophic disorders of the skin Category: Medical Plan: multiple skin tags on the neck area will refer to dermatology Plan Patient to return in 4 months chronic conditions Orders: Orders UA CC w/rflx Micro + Cult 4 Months E55.9 - Vitamin D deficiency, unspecified, E66.01 - Morbid (severe) obesity due to excess calories, F32.9 - Major depressive disorder, single episode, unspecified, F41.9 - Anxiety disorder, unspecified, N28.9 - Disorder of kidney and ureter, unspecified, R79.89 - Other specified abnormal findings of blood chemistry, Z68.42 - Body mass index [BMI] 45.0-49.9, adult Glucose Fasting 4 Months E55.9 - Vitamin D deficiency, unspecified, E66.01 - Morbid (severe) obesity due to excess calories, F32.9 - Major depressive disorder, single episode, unspecified, F41.9 - Anxiety disorder, unspecified, N28.9 - Disorder of kidney and ureter, unspecified, R79.89 - Other specified abnormal findings of blood chemistry, Z68.42 - Body mass index [BMI] 45.0-49.9, adult Hemoglobin A1c 4 Months E55.9 - Vitamin D deficiency, unspecified, E66.01 - Morbid (severe) obesity due to excess calories, F32.9 - Major depressive disorder, single episode, unspecified, F41.9 - Anxiety disorder, unspecified, N28.9 - Disorder of kidney and ureter, unspecified, R79.89 - Other specified abnormal findings of blood chemistry, Z68.42 - Body mass index [BMI] 45.0-49.9, adult Complete Blood Count Auto Diff 4 Months E55.9 - Vitamin D deficiency, unspecified, E66.01 - Morbid (severe) obesity due to excess calories, F32.9 - Major depressive disorder, single episode, unspecified, F41.9 - Anxiety disorder, unspecified, N28.9 - Disorder of kidney and ureter, unspecified, R79.89 - Other specified abnormal findings of blood chemistry, Z68.42 - Body mass index [BMI] 45.0-49.9, adult Comprehensive [place]. Panel Fast 4 Months E55.9 - Vitamin D deficiency, unspecified, E66.01 - Morbid (severe) obesity due to excess calories, F32.9 - Major depressive disorder, single episode, unspecified, F41.9 - Anxiety disorder, unspecified, N28.9 - Disorder of kidney and ureter, unspecified, R79.89 - Other specified abnormal findings of blood chemistry, Z68.42 - Body mass index [BMI] 45.0-49.9, adult Lipid Panel 4 Months E55.9 - Vitamin D deficiency, unspecified, E66.01 - Morbid (severe) obesity due to excess calories, F32.9 - Major depressive disorder, single episode, unspecified, F41.9 - Anxiety disorder, unspecified, N28.9 - Disorder of kidney and ureter, unspecified, R79.89 - Other specified abnormal findings of blood chemistry, Z68.42 - Body mass index [BMI] 45.0-49.9, adult Medications: Refilled metformin ER 1,000 mg (2 x 500 mg) PO BID 360 tabs 1RF E28.2 - Polycystic ovarian syndrome ibuprofen 800 mg PO TID PRN 270 tabs 1RF for headache G43.909 - Migraine, unspecified, not intractable, without status migrainosus escitalopram oxalate 10 mg PO DAILY 90 days 90 tabs 1RF F32.9 - Major depressive disorder, single episode, unspecified, F41.9 - Anxiety disorder, unspecified sodium bicarb-sodium chloride (Neilmed Sinus Rinse Refill packet) Use the sinus rinse as directed 7 days 50 ea 0RF bupropion HCl SR 200 mg PO BID 180 caps 1RF F32.9 - Major depressive disorder, single episode, unspecified, F41.9 - Anxiety disorder, unspecified cholecalciferol (vitamin D3) 25 mcg PO DAILY 30 caps 2RF cetirizine 10 mg PO DAILY 90 days PRN 90 tabs 1RF allergy symptoms J30.9 - Allergic rhinitis, unspecified topiramate 25 mg PO BEDTIME 90 days 90 tabs 1RF G43.909 - Migraine, unspecified, not intractable, without status migrainosus
== END 2024-09-15 09:13 | disposition home or self-care (01) ==
PROVIDERS: PCP Internal Medicine
DX: Z00.00 Encounter for general adult medical examination without abnormal findings (principal); R73.01 Impaired fasting glucose; E66.01 Morbid (severe) obesity due to excess calories; Z68.42 Body mass index [BMI] 45.0-49.9, adult; E28.2 Polycystic ovarian syndrome; R79.89 Other specified abnormal findings of blood chemistry; G43.909 Migraine, unspecified, not intractable, without status migrainosus; N28.9 Disorder of kidney and ureter, unspecified; G47.00 Insomnia, unspecified; F41.9 Anxiety disorder, unspecified; F32.9 Major depressive disorder, single episode, unspecified; E55.9 Vitamin D deficiency, unspecified

== ENCOUNTER → 2024-09-15 08:17 | Outpatient (BNVA) | payer MEDICARE, MEDICAID, SELFPAY | PROVIDERS: PCP Internal Medicine | DX: Z00.00 Encounter for general adult medical examination without abnormal findings (principal); R73.01 Impaired fasting glucose; E28.2 Polycystic ovarian syndrome; R79.89 Other specified abnormal findings of blood chemistry; G43.909 Migraine, unspecified, not intractable, without status migrainosus; N28.9 Disorder of kidney and ureter, unspecified; G47.00 Insomnia, unspecified; F41.9 Anxiety disorder, unspecified; F32.9 Major depressive disorder, single episode, unspecified; E66.01 Morbid (severe) obesity due to excess calories; Z68.42 Body mass index [BMI] 45.0-49.9, adult; E55.9 Vitamin D deficiency, unspecified; N93.9 Abnormal uterine and vaginal bleeding, unspecified; J30.9 Allergic rhinitis, unspecified; D18.01 Hemangioma of skin and subcutaneous tissue; L91.8 Other hypertrophic disorders of the skin | CPT/HCPCS: 96127; 99396 ==

== ENCOUNTER 2025-01-17 16:11 | Outpatient (AMB) | payer MEDICARE, MEDICAID, SELFPAY ==
[2025-01-17 16:12] VITALS: BP 116/78; PULSE 65; O2SAT 98; BMI 47.6
--- NOTE | 2025-01-17 16:12 | A.OFFPC_ITS ---
Vital Signs 01/17/25 16:12 Height 5 ft 6 in Weight 295 lb 2 oz BMI 47.6 BP 116/78 Blood Pressure Location Lt brachial Position Sitting Pulse 65 Pulse Source Pulse Oximeter Pulse Oximetry (%) 98 Oxygen Delivery Method Room Air Intake Visit Reasons: elveated AST/vit-d deficiency with Dr. 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 Required: No Accompanied by: Self / Same As Patient Allergies No Known Allergies Allergy (Verified 01/17/25 16:47) Medication List - Last Reconciled 01/17/25 by Dilan Aldridge MD bupropion HCl SR 200 mg PO BID cetirizine 10 mg PO DAILY PRN 90 days cholecalciferol (vitamin D3) 25 mcg PO DAILY escitalopram oxalate 10 mg PO DAILY 90 days ibuprofen 800 mg PO TID PRN levonorgestrel (Mirena) intrauterine metformin ER 1,000 mg (2 x 500 mg) PO BID sodium bicarb-sodium chloride (Neilmed Sinus Rinse Refill packet) Use the sinus rinse as directed 7 days topiramate 25 mg PO BEDTIME 90 days trazodone 100 mg PO BEDTIME PRN Tobacco use date assessed: 01/17/25 Dental Screening Dental Screen Date: 01/17/25 Did you have a dental visit in the last 12 months?: Yes Did you have a dental problem in the last 6 months where you did not have access to dental care?: No Was dental information given to patient?: Patient has dentist HPI elveated AST/vit-d deficiency with Dr. Aldridge HPI Details Patient comes in today for follow-up visit States that she feels okay but continues to struggle with weight issues She believes that her weight is tied into her irregular eating habits which is in turn affected by her anxiety and depression She is currently on medications for mood disorder but she still reports experiencing increased depression and anxiety and would like to try seeing Psychiatry again for these She denies any headaches or dizziness Relates (+) on and off ear discomfort; denies any sore throat or any recent cough/cold symptoms Denies any chest pains, no shortness of breath No nausea/vomiting, no abdominal pain No change in bowel habits noted She would like to go over in detail the results of her labs done back in September 2024 [facility] [place] Medical History JUNAID III (cervical intraepithelial neoplasia grade III) with severe dysplasia History of COVID-19 IAN (obstructive sleep apnea) Morbid obesity with BMI of 50.0-59.9, adult Allergic rhinitis Migraine Morbid obesity with BMI of 45.0-49.9, adult Depression Anxiety Insomnia Elevated LFTs PCOS (polycystic ovarian syndrome) Impaired fasting glucose Surgical History History of esophagogastroduodenoscopy (EGD) Hx of colonoscopy Previous section Family History Father No problems noted. Mother Diverticulitis Other Substance abuse Social History Household Members: Children Housing: Apartment Are you a primary body care manager to a significant other at home: No Do you presently have visiting nurse or other home services: No Alcohol intake: former Patient Tobacco Use Status: Never used Tobacco Tobacco use type: Cigarette e-Cigarette/Vaping Use: Never Used Second Hand Smoke Exposure: No Advance Directives Date on File: 04/14/20 service: No Current occupational status: employed Cognitive needs: No Hearing needs: No Vision needs: No Female Reproductive History Menstrual Age of Menarche: 12 Questionnaire PHQ-9 Over the last 2 weeks, how often have you been bothered by any of the following problems? 1. Little interest or pleasure in doing things: several days 2. Feeling down, depressed, or hopeless: several days 3. Trouble falling or staying asleep, or sleeping too much: nearly every day 4. Feeling tired or having little energy: nearly every day 5. Poor appetite or overeating: several days 6. Feeling bad about yourself - or that you are a failure or have let yourself or your family down: several days 7. Trouble concentrating on things, such as reading the newspaper or watching television: several days 8. Moving or speaking so slowly that other people could have noticed. Or the opposite - being so fidgety or restless that you have been moving around a lot more than usual: several days 9. Thoughts that you would be better off or of hurting yourself in some way: several days Total score: 13 Depression Screening Interpretation: Positive Depression Screening Follow-up: Existing condition and In treatment Depression Screening Done: Yes 91069 - PHQ-9 Billing: Yes Source: Developed by Drs. Nathan Peck, Janie Apodaca, Clive Powers and colleagues, with an educational odette from [employer]. Thrive Questionnaire Date Thrive assessed: 01/17/25 I am a: Patient What is your living situation today?: I have a steady place to live Within the past 12 months, did the food you bought not last and you didn't have the money to get more?: Never true Within the past 12 months, did you worry whether your food would run out before you got money to buy more?: Never true Do you have trouble paying for medicines?: No Do you have trouble getting transportation to medical appointments?: No Do you have trouble paying your heating and electricity bill?: No Do you have trouble taking care of your child, family member or friend?: No Do you have trouble with day-to-day activities such as bathing, preparing meals, shopping, managing finances, etc.?: I choose not to answer this question Are you currently unemployed and looking for a job?: No Are you interested in more education?: No Please select the resources that you would like help with: None Currently or been in a relationship where the following occur: No concerns reported THRIVE Score: 0 AUDIT C Alcohol Use Questionnaire (AUDIT-C) 1. How often do you have a drink containing alcohol?: Never 3. How often do you have six or more drinks on one occasion?: Never Total Score: 0 Score Reviewed/Action Taken: Yes MARCK-7 AMB Questionnaire MARCK-7 Date MARCK - 7 assessed: 01/17/25 Feeling nervous, anxious, or on edge: 1 = Several days Not being able to stop or control worryin = Not at all Worrying too much about different things: 2 = More than half the days Trouble relaxin = More than half the days Being so restless that it is hard to sit still: 2 = More than half the days Becoming easily annoyed or irritable: 2 = More than half the days Feeling afraid as if something awful might happen: 0 = Not at all Total MARCK-7 score (0-4 normal; 5-9 mild; 10-14 moderate; 15-21 severe): 9 Source: Developed by Drs. Nathan Peck, Janie Apodaca, Clive Powers and colleagues, with an educational odette from [employer]. MARCK-7 Assessment Billing MARCK-7 Assessment Tool: MARCK-7 Assessment 84985 Review of Systems Const Denies chills, Denies fatigue, Denies fever(s) and Denies headache(s) (increasing and occurring more often lately) ENT Denies dysphagia, Denies dizziness, Denies ear discharge, Denies otalgia (but reports on and off ear discomfort), Denies headache(s) (increasing and occurring more often lately), Denies neck pain, Denies odynophagia and Denies sore throat Card Denies chest pain, Denies rapid heart rate, Denies irregular heart rhythm, Denies palpitations and Denies dyspnea Resp Denies chest congestion, Denies cough and Denies dyspnea GI Denies abdominal pain, Denies constipation, Denies dysphagia, Denies heartburn, Denies diarrhea, Denies nausea, Denies odynophagia and Denies vomiting Denies hematuria, Denies difficulty voiding, Denies dysuria, Denies urinary incontinence and Denies urinary urgency Musc Denies back pain, Denies arthralgias and Denies neck pain Skin/Breast Denies rash Neuro Denies dizziness, Denies headache(s) (increasing and occurring more often lately) and Denies paresthesias Psych Reports anxiety and Reports depression Endo Denies fatigue and Denies palpitations Physical exam (Primary Care) Vital Signs: Last Vital Signs Pulse 65 01/17/25 16:12 BP 116/78 01/17/25 16:12 Pulse Ox 98 01/17/25 16:12 Oxygen Delivery Method Room Air 01/17/25 16:12 BMI result Body Mass Index 47.6 Tobacco/Smoking Status: Tobacco use Status Tobacco use date assessed 01/17/25 01/17/25 16:14 Patient Tobacco Use Status Never used Tobacco 01/17/25 16:14 Tobacco use type Cigarette 01/17/25 16:14 e-Cigarette/Vaping Use Never Used 01/17/25 16:14 PHQ-9: PHQ-9 Score PHQ-9: Total score 13 01/17/25 16:47 Depression Screening Interpretation: Positive Depression Screening Follow-up: Existing condition and In treatment Thrive Assessment: Date of Thrive Assessment Date Thrive assessed 01/17/25 01/17/25 16:14 Currently or been in a relationship where the following occur: No concerns reported Const General: no acute distress and alert HENMT Ears: TM's normal bilaterally and EAC's normal Throat: Yes posterior oropharynx normal and Yes tonsils normal (no TP congestion) Neck Neck: Yes supple and No lymphadenopathy Thyroid: Thyroid normal Resp Auscultation: clear to auscultation bilaterally, no rales and no wheezes Cardio Rate: regular rate Rhythm: regular rhythm Heart sounds: no murmurs GI Palpation (GI): Soft to palpation and nontender Auscultation: normal bowel sounds General: Yes no CVA tenderness Back/Spine/Pelvis Back: no CVA tenderness Skin Rashes: no rashes Extrem General: Yes no clubbing, cyanosis or edema Results Reviewed Results Reviewed: Laboratory Tests 09/14/24 09/14/24 10:20 13:53 WBC 11.0 H Hgb 14.3 Hct 43.2 Plt Count 295 Sodium 142 Potassium 3.7 Creatinine 0.73 Estimated GFR > 60 Fasting Glucose 126 H Hemoglobin A1c % 5.7 Calcium 8.8 D AST 36 H ALT 31 Triglycerides 65 Cholesterol 165 LDL Cholesterol, Calc 102 H HDL Cholesterol 50 25-OH Vitamin D Total 14.1 L TSH 1.99 Ur Specific [place] >= 1.030 H Urine Protein Trace Urine Glucose (UA) Negative Urine Blood Trace H Urine Nitrite Negative Ur Leukocyte Esterase Small (1+) H Coding Level of Care Code Est Pt Level 4 (64264) Diagnoses Migraine without status migrainosus, not intractable, unspecified migraine type G43.909 Migraine type: unspecified Status migrainosus presence: without status migrainosus Intractability: not intractable Elevated LFTs R79.89 Impaired fasting glucose R73.01 Vitamin D deficiency E55.9 Allergic rhinitis, unspecified seasonality, unspecified trigger J30.9 Allergic rhinitis trigger: unspecified Allergic rhinitis seasonality: unspecified PCOS (polycystic ovarian syndrome) E28.2 Abnormal uterine bleeding (AUB) N93.9 Insomnia, unspecified type G47.00 Insomnia type: unspecified Anxiety F41.9 Depression, unspecified depression type F32.9 Depression Type: unspecified Morbid obesity with BMI of 45.0-49.9, adult E66.01; Z68.42 Additional Codes MARCK-7 Assessment Billing - MARCK-7 Assessment Tool: MARCK-7 Assessment 31755 ([id number]) PHQ-9 - 11735 - PHQ-9 Billing: Yes ([id number]) Assessment & Plan Assessment & Plan (1) Migraine: Code(s): G43.909 - Migraine, unspecified, not intractable, without status migrainosus Category: Medical Qualifiers: Migraine type: unspecified Status migrainosus presence: without status migrainosus Intractability: not intractable Qualified Code(s): G43.909 - Migraine, unspecified, not intractable, without status migrainosus Plan: Reinforced avoidance of all potential migraine triggers Continue Topiramate 25 mg Q HS for migraine headache prophylaxis and Ibuprofen 800 mg TID PRN for symptomatic relief (2) Elevated LFTs: Code(s): R79.89 - Other specified abnormal findings of blood chemistry Category: Medical Plan: Patient is advised that her serum AST was still slightly elevated of her labs done back in September 2024 - is most likely related to her weight Reinforced avoidance of Tylenol-containing medications and alcohol (3) Impaired fasting glucose: Code(s): R73.01 - Impaired fasting glucose Category: Medical Plan: Her fasting glucose was at 126 mg/dl but her HgbA1c was normal at 5.7% Reinforced low calorie/low carb diet She takes Metformin ER 1000 mg BID but this is mostly for her PCOS rather than for her blood sugar (4) Vitamin D deficiency: Code(s): E55.9 - Vitamin D deficiency, unspecified Category: Medical Plan: Continue Cholecalciferol 25 mcg QD - her Vitamin D level was still low on her labs done back in September 2024 (5) Allergic rhinitis: Code(s): J30.9 - Allergic rhinitis, unspecified Category: Medical Qualifiers: Allergic rhinitis trigger: unspecified Allergic rhinitis seasonality: unspecified Qualified Code(s): J30.9 - Allergic rhinitis, unspecified Plan: Continue Cetirizine 10 mg QD PRN (6) PCOS (polycystic ovarian syndrome): Code(s): E28.2 - Polycystic ovarian syndrome Category: Medical Plan: Continue Metformin ER 1000 mg BID Follow up with [facility] as scheduled (7) Abnormal uterine bleeding (AUB): Comment: On Liletta inserted on 09/30 Code(s): N93.9 - Abnormal uterine and vaginal bleeding, unspecified Category: Medical Plan: Follow up with [facility] as needed (8) Insomnia: Code(s): G47.00 - Insomnia, unspecified Category: Medical Qualifiers: Insomnia type: unspecified Qualified Code(s): G47.00 - Insomnia, unspecified Plan: Sleep hygiene reinforced Continue Trazodone 100 mg Q HS PRN (9) Anxiety: Code(s): F41.9 - Anxiety disorder, unspecified Category: Medical Plan: Patient reports that she does not eat regularly due to her depression and anxiety Continue Escitalopram 10 mg QD and Bupropion HCI SR 200 mg BID Will refer her again to psychiatry for further evaluation and management (10) Depression: Code(s): F32.9 - Major depressive disorder, single episode, unspecified Category: Medical Qualifiers: Depression Type: unspecified Qualified Code(s): F32.9 - Major depressive disorder, single episode, unspecified Plan: Continue Escitalopram 10 mg QD and Bupropion HCI SR 200 mg BID Will refer her again to psychiatry for further evaluation and management (11) Morbid obesity with BMI of 45.0-49.9, adult: Code(s): E66.01 - Morbid (severe) obesity due to excess calories; Z68.42 - Body mass index [BMI] 45.0-49.9, adult Category: Medical Plan: Reinforced diet/exercise as tolerated/lose weight Plan Follow up in 4 months Orders: Orders AMB Hemoglobin A1c 01/17/25 Z13.9 - Encounter for screening, unspecified Referrals Psychiatry Referral F32.9 - Major depressive disorder, single episode, unspecified, F41.9 - Anxiety disorder, unspecified
== END 2025-01-17 17:08 | disposition home or self-care (01) ==
LOC: HO.HMCH 16:11
PROVIDERS: PCP Internal Medicine; Visit Provider Internal Medicine
DX: G43.909 Migraine, unspecified, not intractable, without status migrainosus (principal); R79.89 Other specified abnormal findings of blood chemistry; E66.01 Morbid (severe) obesity due to excess calories; Z68.42 Body mass index [BMI] 45.0-49.9, adult; R73.01 Impaired fasting glucose; E55.9 Vitamin D deficiency, unspecified; J30.9 Allergic rhinitis, unspecified; E28.2 Polycystic ovarian syndrome; N93.9 Abnormal uterine and vaginal bleeding, unspecified; G47.00 Insomnia, unspecified; F41.9 Anxiety disorder, unspecified; F32.9 Major depressive disorder, single episode, unspecified

== ENCOUNTER → 2025-01-17 16:11 | Outpatient (BNVA) | payer MEDICARE, MEDICAID, SELFPAY | PROVIDERS: PCP Internal Medicine; Visit Provider Internal Medicine | DX: G43.909 Migraine, unspecified, not intractable, without status migrainosus (principal); R79.89 Other specified abnormal findings of blood chemistry; R73.01 Impaired fasting glucose; E55.9 Vitamin D deficiency, unspecified; J30.9 Allergic rhinitis, unspecified; E28.2 Polycystic ovarian syndrome; N93.9 Abnormal uterine and vaginal bleeding, unspecified; G47.00 Insomnia, unspecified; F41.9 Anxiety disorder, unspecified; F32.9 Major depressive disorder, single episode, unspecified; E66.01 Morbid (severe) obesity due to excess calories; Z68.42 Body mass index [BMI] 45.0-49.9, adult; Z71.3 Dietary counseling and surveillance | CPT/HCPCS: 96127; 99212 ==

== ENCOUNTER 2025-05-01 13:53 | Inpatient (IN) | payer MEDICARE, MEDICAID, SELFPAY ==
--- NOTE | ~2025-05-01 | US_ITS ---
CLINICAL HISTORY: RUQ tenderness --- Additional Notes or Special Instructions: GB and CBD Limited abdominal ultrasound Comparison: CT/REG/CT - CT ABDOMEN PELVIS WITHOUT THEN WITH IV CONTRAST - 03/05/21 15:45 EDT US - US ABDOMEN - 02/01/20 10:08 EDT Findings: The common bile duct is normal in diameter, measuring 0.5 cm. Cholelithiasis and sludge. Small gallbladder polyps, Also seen on the prior studies. The gallbladder is distended, measuring 4.7 cm in transverse dimension. No wall thickening or pericholecystic fluid. Positive sonographic Friend sign. Impression: Positive for acute cholecystitis. This document has been electronically signed by: Mare Card MD on 05/01/2025 15:57:53
--- NOTE | ~2025-05-01 | MR_ITS ---
EXAMINATION: MRCP.. CLINICAL INFORMATION: Cholecystitis. Elevated liver enzymes. TECHNIQUE: Axial and coronal T2 fat-sat haste sequences. Axial and coronal T2 haste sequences. Axial in and out of 3-D phase sequences. 3-D space MRCP triggered. MRCP radial T2 fat-sat.. COMPARISON: Correlated to ultrasound dated May 01, 2025. FINDINGS: Gallbladder is prominent with intraluminal hypointense T2 signal abnormality lesions. There is a trace of pericholecystic edema. Gallbladder wall measures 2 mm. Common bile duct measures 4 mm without intraluminal signal abnormality. Liver measures 22 cm. Decreased/drop-off signal from the in phase to the out of phase sequences. No peripancreatic fluid collections. No main pancreatic duct measures 2 mm. Spleen measures 12 cm. No hydronephrosis in the right kidney. No ascites. No intestinal obstruction pattern. No aneurysm, abdominal aorta. Patient's large body habitus/obesity. Multilevel spondylosis. MR/MR MRCP IMPRESSION: Concerning calculus cholecystitis in the correct clinical settings. No choledocholithiasis. Hepatosplenomegaly. Hepatic steatosis. Electronically signed by: Supa Nowak MD 05/02/2025 01:17 PM EDT
[2025-05-01 14:09] VITALS: BP 180/77; PULSE 83; RESP 18; TEMP 36.8; O2SAT 98; BMI 47.6
--- NOTE | 2025-05-01 14:09 | ED_ITS ---
HPI - General Adult General Chief complaint: Abdominal Pain Stated complaint: ultrasound Time Seen by Provider: 05/01/25 17:21 Source: patient Mode of arrival: ambulatory Limitations: no limitations History of Present Illness ED Provider: EIMLIE DE LA VEGA PA-C HPI narrative: 44-year-old female with pmhx significant for morbid obesity, PCOS, DM, anxiety, depression, ARTEAGA sent to the ED today for evaluation of abdominal pain, nausea, vomiting x3 days. Reports epigastric/right upper quadrant pain radiating to her back that occurs intermittently a few hours after eating. Associated nausea and vomiting. Last PO intake around 1000 this morning however vomited shortly after. Trialed Mortin this morning without relief. She presented to urgent care this morning who advised her to come to the ED for further evaluation. Denies fever, chills, constipation, diarrhea, urinary sx. History of section x1. No other abdominal surgeries. Related Data Home Medications ?Medication ?Instructions ?Recorded ?Confirmed levonorgestrel (Mirena) intrauterine 10/23/21 Previous Rx's ?Medication ?Instructions ?Recorded trazodone 100 mg tablet 100 mg PO BEDTIME PRN for in somnia 05/26/23 #90 tabs bupropion HCl 200 mg tablet,12 hr 200 mg PO BID #180 c aps 09/15/24 sustained-release cholecalciferol (vitamin D3) 25 25 mcg PO DAILY #30 ca ps 09/15/24 mcg (1,000 unit) capsule escitalopram oxalate 10 mg tablet 10 mg PO DAILY 90 da ys #90 tabs 09/15/24 ibuprofen 800 mg tablet 800 mg PO TID PRN for headac he 09/15/24 #270 tabs metformin 500 mg tablet,extended 1,000 mg (2 x 500 mg) PO BID #360 09/15/24 release 24 hr tabs sodium bicarbonate-sodium chloride 1 packet .Route .QD 7 days #50 ea 09/15/24 packet for sinus irrigation (NeSciodermmed Sinus Rinse Refill packet) topiramate 25 mg tablet 25 mg PO BEDTIME 90 days #90 tabs 09/15/24 cetirizine 10 mg tablet 10 mg PO DAILY PRN allergy 0 01/01/25 symptoms 90 days #90 tabs Allergies Allergy/AdvReac Type Severity Reaction Status Date / Time No Known Allergies Allergy Verified 05/01/25 14:12 Review of Systems 2 Review of Systems: Yes all other systems are reviewed and are negative [facility] Past Medical History Attestation statement: The following information was validated with the patient. Source: old records reviewed and nursing notes reviewed Medical History 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 Mother Diverticulitis Other Substance abuse Social History Social History Household Members: Children Housing: Apartment Are you a primary child care attendant school to a significant other at home: No Do you presently have visiting nurse or other home services: No Alcohol intake: former Patient Tobacco Use Status: Never used Tobacco Tobacco use type: Cigarette e-Cigarette/Vaping Use: Never Used Second Hand Smoke Exposure: No Advance Directives: No Advance Directives Information Provided: Yes Advance Directives Date on File: 04/14/20 Do you have a plan to hurt others: No Plan service: No Current occupational status: employed Cognitive needs: No Hearing needs: No Vision needs: No Physical Exam ED Vital Signs: Vital Signs - 24 hr 05/01/25 14:09 05/01/25 16:27 Temperature 98.3 F 97.9 F Pulse Rate 83 67 Respiratory Rate 18 16 Blood Pressure 180/77 H 124/63 Pulse Oximetry 98 96 Oxygen Delivery Method Room Air Room Air BMI result Body Mass Index 47.6 Hypertensive, vitals are otherwise WNL, afebrile. General: Well appearing, in no acute distress. Skin: Warm, dry, intact. No rashes or lesions. Head: Normocephalic, atraumatic. EENT: Hearing is intact b/l. Conjunctiva clear. PERRLA. EOM intact. Moist mucous membranes.? Cardiac: Chest wall symmetric. RRR Lungs: Normal respiratory effort without accessory muscle use. CTA bilaterally Abdomen: obese abdomen, soft, nondistended, tender to palpation of epigastric region and right upper quadrant, no rebound or guarding. +friend sign. active bs x4. Neuro: AOx3. Normal speech. Ambulating with steady gait. Psych: Appropriate mood and affect. Responds appropriately to questions. Course Course Course Narrative: This is a rapid medical exam performed by Maksim Rowland NP: Additional HPI, ROS, PE not included below will be deferred to primary provider. Patient is a 44y/o F referred from urgent care for evaluation of RUQ abdominal pain, nausea and vomiting since Friday. Pain radiated to her back. Worse after eating. Plan: labs, U/S Reevaluation(s) Reevaluation #1: CBC without leukocytosis however 81 percent neutrophils. No anemia. Chemistry without acute electrolyte abnormality requiring intervention. Random glucose 167, no anion gap. No JASMEET. Transaminitis with total bili 2.2. Lipase WNL. Beta quant undetectable, not . Urine showing trace leukocyte esterase, 2+ urine bacteria. She denies any urinary symptoms. Will defer treatment until culture results. Right upper quadrant ultrasound showing normal CBD, cholelithiasis and sludge with distended gallbladder measuring 4.7 centimeters in transverse dimension. No wall thickening or pericholecystic fluid. Positive sonographic Friend's sign. Findings concerning for acute cholecystitis. > I spoke with on-call general surgeon Dr. childs who agrees with admission to surgical service. Discussed results/handley with patient, she is agreeable. Dr. Childs to place admission orders. > she does not meet criteria for sepsis at this time. Blood cultures ordered. IV fluids, Toradol, Zofran, Zosyn ordered. Medications Administered Generic Name Dose Route Start Last Admin Trade Name Freq PRN Reason Stop Dose Admin Lactated Ringer's 1,000 mls @ 100 mls/hr 05/01/25 17:45 05/01/25 18:11 Lr IVCONT 100 mls/hr .Q10H JERAD Administration Discontinued Medications Generic Name Dose Route Start Last Admin Trade Name Freq PRN Reason Stop Dose Admin Piperacillin Sod/Tazobactam 100 mls @ 200 mls/hr 05/01/25 17:28 05/01/25 18:12 Sod 4.5 gm/ Sodium Chloride IV 05/01/25 17:57 200 mls/hr ONCE ONE Administration Ketorolac Tromethamine 15 mg 05/01/25 17:28 05/01/25 18:13 Ketorolac Tromethamine 15 Mg/Ml Vial IVPUSH 05/01/25 17:29 15 mg ONCE ONE Administration Ondansetron HCl 4 mg 05/01/25 17:28 05/01/25 18:15 Ondansetron Hcl 4 Mg/2 Ml Vial IVPUSH 05/01/25 17:29 4 mg ONCE ONE Administration Medical Decision Making Medical Decision Making [facility] Narrative: 44-year-old female with pmhx significant for morbid obesity, PCOS, DM, anxiety, depression, ARTEAGA sent to the ED today for evaluation of abdominal pain, nausea, vomiting x3 days. Differential diagnosis includes cholecystitis, biliary colic, renal colic, nephrolithiasis, gastroenteritis, gastritis, PUD. Abdominal exam without peritoneal signs. Less likely to represent acute pancreatitis, perforated ulcer/ GI bleed, acute infectious processes (pneumonia, hepatitis, pyelonephritis), atypical appendicitis, vascular catastrophe, bowel obstruction or viscus perforation. Presentation not consistent with other acute, emergent causes of abdominal pain at this time. Plan: labs, UA, pain control, RUQ US, serial reassessment Differential Diagnosis Differential Diagnoses: The differential diagnosis associated with the presentation includes As above Admission/Observation Consideration of admission/observation: Escalation of care including admission/observation considered Patient admitted to surgical service for management of acute cholecystitis Consult Healthcare Provider Management of the patient was discussed with: Chicken Tender (Dr. Childs - general surgery ) Lab Data [facility] Lab Attestation statement: I reviewed the patient's lab results. As above 05/01/25 15:37 05/01/25 15:37 Labs: Lab Results 05/01/25 05/01/25 Range/Units 15:30 15:37 WBC 10.6 (4.8-10.8) X10*3/uL RBC 4.69 (4.20-5.50) X10*6/uL Hgb 13.4 (12.0-16.0) g/dl Hct 39.9 (37.0-47.0) % MCV 85.1 (80.0-98.0) fL MCH 28.6 (27.0-33.0) pg MCHC 33.6 (31.0-35.0) g/dl RDW 13.6 (11.0-16.0) % Plt Count 258 (160-400) X10*3/uL MPV 9.6 (9.4-12.3) fL Immature Gran % (Auto) 0.7 H (0.0-0.4) % Neut % (Auto) 81.8 H (45-73) % Lymph % (Auto) 13.8 L (20-40) % [place] % (Auto) 3.2 (2-11) % Eos % (Auto) 0.1 (0-4) % Baso % (Auto) 0.4 (0-2) % Lymph # (Auto) 1.5 (1.2-4.9) X10*3/uL [place] # (Auto) 0.3 (0.1-1.2) X10*3/uL Eos # (Auto) 0.0 (0.0-0.4) X10*3/uL Baso # (Auto) 0.0 (0.0-0.2) X10*3/uL Abs Immat Gran (auto) 0.07 H (0.00-0.03) X10*3/uL Absolute Neuts (auto) 8.7 H (2.0-8.3) x10*3/uL Absolute Nucleated RBC 0.000 (0.0-0.012) X10*3/uL Nucleated RBC % (auto) 0.0 (0.0-0.2) /100WBC Sodium 141 (135-145) mmol/L Potassium 4.0 (3.3-5.1) mmol/L Chloride 107 (96-108) mmol/L Carbon Dioxide 26 (22-29) mmol/L Anion Gap 12 (12-20) BUN 9 (9-16) mg/dL Creatinine 0.65 (0.5-1.4) mg/dL Estim Creat Clear Calc 158.6 Estimated GFR > 60 Random Glucose 167 H (60-115) mg/dL Calcium 9.4 D (8.4-10.2) mg/dL Total Bilirubin 2.2 H (0.0-1.0) mg/dL AST 202 H (5-31) U/L ALT 195 H (0-31) U/L Alkaline Phosphatase 187 H (39-117) U/L Total Protein 7.1 (6.5-8.0) g/dL Albumin 3.8 (3.5-5.0) g/dL Lipase 11 (8-78) U/L Beta HCG, Quant < 2 mIU/mL Urine Color Dark Yellow Urine Appearance Clear Urine pH 7.0 (5.0-9.0) Ur Specific [place] 1.020 (1.005-1.025) Urine Protein Trace (Neg-Trace) mg/dL Urine Glucose (UA) Negative (Negative) mg/dL Urine Ketones Negative (Negative) mg/dL Urine Blood Negative (Negative) Urine Nitrite Negative (Negative) Ur Leukocyte Esterase Trace H (Negative) Urine RBC 0-2 (0-2) /HPF Urine WBC 0-5 (0-5) /HPF Ur Squamous Epith Cells 3-5 (0-2) /HPF Urine Bacteria 2+ (None Seen) Hyaline Casts 0-2 (0-2) /LPF Independent Interpretation I performed an independent interpretation of an: Ultrasound Interpretation: RUQ ultrasound showing gallbladder sludge Radiology Impression Discussion of test interpretation with radiology: I have reviewed the radiologist's reading. Radiologist Impression: Procedure(s): US abdomen limited Accession Number(s): [id number] cc: Dilan Aldridge MD; Myrna Rowland NP~ Reason for Exam: RUQ tenderness CLINICAL HISTORY: RUQ tenderness --- Additional Notes or Special Instructions: GB and CBD Limited abdominal ultrasound Comparison: CT/REG/[place] - CT ABDOMEN PELVIS WITHOUT THEN WITH IV CONTRAST - 03/05/21 15:45 EDT US - US ABDOMEN - 02/01/20 10:08 EDT Findings: The common bile duct is normal in diameter, measuring 0.5 cm. Cholelithiasis and sludge. Small gallbladder polyps, Also seen on the prior studies. The gallbladder is distended, measuring 4.7 cm in transverse dimension. No wall thickening or pericholecystic fluid. Positive sonographic Friend sign. Impression: Positive for acute cholecystitis. This document has been electronically signed by: Mare Card MD on 05/01/2025 15:57:53 Independent Historian Clinical information obtained from an independent historian. History obtained from or confirmed by: Friend External Record Review External record reviewed: Inpatient record Prescription Management I considered prescription management with: Pain Medication and Antibiotic Chronic Conditions Patient?s care impacted by: Diabetes Social Determinants Patient?s care significantly limited by Social Determinants of Health including: Other Social Determinant of Health Critical Care Time Critical Care Time Critical Care Time: Yes Total Critical Care Time: 40 Attestation: Critical care time in the amount of 40 minutes has been provided to the patient in terms of direct patient care, frequent reevaluation, consultation with General surgery, review and interpretation of medical data and results, and management of potentially life-threatening conditions. This is all outside of any medical procedures. Discharge Plan Discharge Clinical Impression: Acute cholecystitis Patient Disposition: Admitted As Inpatient
[2025-05-01 15:40] LABS: MANUAL DIFF FLAG NO
[2025-05-01 15:44] LABS: Appearance Urine Clear; Glucose Urine UA Negative (Negative); PH 7.0 (5.0-9.0); Specific Gravity - Urine 1.020 (1.005-1.025); UMIC TRIGGER UACC YES
[2025-05-01 15:46] LABS: Hematocrit 39.9 % (37.0-47.0); Hemoglobin 13.4 g/dl (12.0-16.0); Imm Gran Abs Auto 0.07 X10*3/uL (0.00-0.03); Imm Gran Pct Auto 0.7 % (0.0-0.4); Lymphocytes Absolute Auto 1.5 X10*3/uL (1.2-4.9); Mean Corpuscular HGB Conc 33.6 g/dl (31.0-35.0); Mean Corpuscular Hemoglobin 28.6 pg (27.0-33.0); Mean Corpuscular Volume 85.1 fL (80.0-98.0); NRBC Abs Auto 0.000 X10*3/uL (0.0-0.012); NRBC Pct Auto 0.0 /100WBC (0.0-0.2); Platelet Count 258 X10*3/uL (160-400); Red Blood Count 4.69 X10*6/uL (4.20-5.50); White Blood Count 10.6 X10*3/uL (4.8-10.8)
[2025-05-01 16:17] LABS: Alanine Aminotransferase 195 U/L (0-31); Albumin Level 3.8 g/dL (3.5-5.0); Anion Gap 12 (12-20); Aspartate Amino Transferase 202 U/L (5-31); Blood Urea Nitrogen 9 mg/dL (9-16); Calcium 9.4 mg/dL (8.4-10.2); Carbon Dioxide 26 mmol/L (22-29); Chloride 107 mmol/L (96-108); Creatinine Clr Calc Pharmacy 158.6; Estimated Glomerular Filt Rate > 60; Lipase 11 U/L (8-78); Potassium 4.0 mmol/L (3.3-5.1); Sodium 141 mmol/L (135-145); Total Protein 7.1 g/dL (6.5-8.0)
[2025-05-01 16:27] VITALS: BP 124/63; PULSE 67; RESP 16; TEMP 36.6; O2SAT 96
[2025-05-01 16:50] LABS: Alkaline Phosphatase 187 U/L (39-117)
[2025-05-01] MEDS: Lactated Ringers 1,000 ML 100 ML IVCONT (18:11)
--- NOTE | 2025-05-01 19:17 | PHA.MEDREC ---
Pharmacy Consult ? Medication Reconciliation Pharmacy has completed the medication reconciliation. Spoke with fannie ent, patient no longer on bupropion,topiramate trazodone. New prescriber changing around medications
[2025-05-01 19:19] VITALS: BP 106/59; PULSE 64; RESP 17; O2SAT 97
--- NOTE | 2025-05-01 19:20 | PC.NURSE ---
this rn assumed care of pt, pt resting in stretcher, no acute distress noted, medications administering per mar
--- NOTE | 2025-05-01 22:20 | PC.NURSE ---
pt requested this rn call mother with update at this time. Holley Carrion [phone]
[2025-05-02 00:09] VITALS: BP 131/78; PULSE 77; RESP 15; TEMP 36.8; O2SAT 95
--- NOTE | 2025-05-02 00:09 | PC.NURSE ---
pt placed in hospital bed at this time for comfort, vss
[2025-05-02] MEDS: Lactated Ringers 1,000 ML 100 ML IVCONT ×3 (03:55→21:44)
[2025-05-02 07:02] VITALS: BP 136/77; PULSE 70; RESP 16; TEMP 36.6; O2SAT 95
--- NOTE | 2025-05-02 07:51 | HO.ANESPROP2 ---
Documented by User: Darline Currie NP 05/02/25 07:51 HPI - Anesthesia Eval Consult details Narrative: 44 yr old female for Cholecystectomy Laparoscopic BMI 48 IAN PMFSH Active Problems Active Problems: All Active Problems Acute cholecystitis (Acute) Skin tag (Acute) Angioma (Acute) Vitamin D deficiency (Acute) Abnormal uterine bleeding (AUB) (Acute) Abnormal uterine and vaginal bleeding, unspecified (Acute) Multiple acquired skin tags (Acute) Annual physical exam (Acute) Dysplasia of cervix, low grade (JUNAID 1) (Acute) LGSIL on Pap smear of cervix (Acute) Abnormal mammogram (Acute) Well woman exam (Acute) Nonalcoholic steatohepatitis (ARTEAGA) (Acute) Kidney lesion (Acute) LLQ abdominal pain (Acute) Ovarian cyst (Acute) Lumbar spondylosis (Acute) COVID-19 (Acute) Complex ovarian cyst (Acute) Pelvic pain (Acute) Microscopic hematuria (Acute) Medicare annual wellness visit, initial (Acute) Urge incontinence of urine (Acute) Urinary frequency (Acute) Morbid obesity with BMI of 50.0-59.9, adult (Acute) Allergic rhinitis (Acute) Migraine (Acute) Morbid obesity with BMI of 45.0-49.9, adult (Acute) Depression (Acute) Anxiety (Acute) Insomnia (Acute) Elevated LFTs (Acute) PCOS (polycystic ovarian syndrome) (Acute) Impaired fasting glucose (Acute) Past Medical History Medical History JUNAID III (cervical intraepithelial neoplasia grade III) with severe dysplasia History of COVID-19 IAN (obstructive sleep apnea) Morbid obesity with BMI of 50.0-59.9, adult Allergic rhinitis Migraine Morbid obesity with BMI of 45.0-49.9, adult Depression Anxiety Insomnia Elevated LFTs PCOS (polycystic ovarian syndrome) Impaired fasting glucose Family History Family History Father No problems noted. Mother Diverticulitis Other Substance abuse Family history of problems with anesthesia: No Surgical History Surgical History History of esophagogastroduodenoscopy (EGD) Hx of colonoscopy Previous section Social History Social History Household Members: None Housing: Apartment Are you a primary home health care social worker to a significant other at home: No Do you presently have visiting nurse or other home services: No Alcohol intake: former Patient Tobacco Use Status: Never used Tobacco Tobacco use type: Cigarette e-Cigarette/Vaping Use: Never Used Second Hand Smoke Exposure: No Advance Directives Date on File: 04/14/20 service: No Current occupational status: employed Cognitive needs: No Hearing needs: No Vision needs: No Meds Allergies Allergy/AdvReac Type Severity Reaction Status Date / Time No Known Allergies Allergy Verified 05/01/25 14:12 Active Medications: Current Medications Hydromorphone HCl (Hydromorphone Hcl 0.5 Mg/0.5 Ml Syringe) 0.5 mg IVPUSH Q3H PRN; Protocol PRN Reason: Pain, Severe (Pain Scale 7-10) Acetaminophen (Ofirmev) 1,000 mg in 100 mls @ 400 mls/hr IV Q6H PRN PRN Reason: Pain, Mild (Pain Scale 1-3) Piperacillin Sod/Tazobactam (Sod 3.375 gm/ Sodium Chloride) 50 mls @ 100 mls/hr IV Q6H [facility] Last Admin: 05/02/25 06:13 Dose: 100 mls/hr Lactated Ringer's (Lr) 1,000 mls @ 100 mls/hr IVCONT .Q10H [facility] Last Admin: 05/02/25 03:55 Dose: 100 mls/hr Ondansetron HCl (Ondansetron Hcl 4 Mg/2 Ml Vial) 4 mg IVPUSH QID PRN PRN Reason: Nausea Oxycodone HCl (Oxycodone Hcl Immed Release 5 Mg Tablet) 5 mg PO Q6H PRN PRN Reason: Pain, Moderate(Pain Scale 4-6) Sodium Chloride (0.9 % Sodium Chloride Flush 3 Ml Syringe) 3 ml IVFLUSH QSHIFT [facility] Last Admin: 05/02/25 07:34 Dose: Not Given Zolpidem Tartrate (Zolpidem Tartrate 5 Mg Tablet) 5 mg PO BEDTIME PRN PRN Reason: Insomnia Home Medications ?Medication ?Instructions ?Recorded ?Confirmed ?Last Taken ?Type clonidine HCl 0.1 mg tablet 0.1 mg PO BEDTIME 05/01/25 05/01/25 04/30/25 History magnesium glycinate 300 mg PO BEDTIME PRN Sleep 05/01/25 05/01/25 04/30/25 History Exam Height,Weight and Vital Signs: Height 5 ft 6 in Weight 133.9 kg Last Vital Signs Temp 98 F 05/02/25 07:02 Pulse 70 05/02/25 07:02 Resp 16 05/02/25 07:02 BP 136/77 05/02/25 07:02 Pulse Ox 95 05/02/25 07:02 O2 Del Method Room Air 05/02/25 07:02 Pertinent Lab Results Pertinent Lab Results: Laboratory Tests 05/01/25 05/01/25 15:30 15:37 WBC 10.6 RBC 4.69 Hgb 13.4 Hct 39.9 MCV 85.1 MCH 28.6 MCHC 33.6 RDW 13.6 Plt Count 258 MPV 9.6 Immature Gran % (Auto) 0.7 H Neut % (Auto) 81.8 H Lymph % (Auto) 13.8 L [place] % (Auto) 3.2 Eos % (Auto) 0.1 Baso % (Auto) 0.4 Lymph # (Auto) 1.5 [place] # (Auto) 0.3 Eos # (Auto) 0.0 Baso # (Auto) 0.0 Abs Immat Gran (auto) 0.07 H Absolute Neuts (auto) 8.7 H Absolute Nucleated RBC 0.000 Nucleated RBC % (auto) 0.0 Sodium 141 Potassium 4.0 Chloride 107 Carbon Dioxide 26 Anion Gap 12 BUN 9 Creatinine 0.65 Estim Creat Clear Calc 158.6 Estimated GFR > 60 Random Glucose 167 H Calcium 9.4 D Total Bilirubin 2.2 H AST 202 H ALT 195 H Alkaline Phosphatase 187 H Total Protein 7.1 Albumin 3.8 Lipase 11 Beta HCG, Quant < 2 Urine Color Dark Yellow Urine Appearance Clear Urine pH 7.0 Ur Specific [place] 1.020 Urine Protein Trace Urine Glucose (UA) Negative Urine Ketones Negative Urine Blood Negative Urine Nitrite Negative Ur Leukocyte Esterase Trace H Urine RBC 0-2 Urine WBC 0-5 Ur Squamous Epith Cells 3-5 Urine Bacteria 2+ Hyaline Casts 0-2 Assessment and Plan Final Anesthetic Review Family History of Problems with Anesthesia: No Documented by User: Jany King MD 05/04/25 11:47 [facility] Past Medical History Medical History JUNAID III (cervical intraepithelial neoplasia grade III) with severe dysplasia History of COVID-19 IAN (obstructive sleep apnea) Morbid obesity with BMI of 50.0-59.9, adult Allergic rhinitis Migraine Morbid obesity with BMI of 45.0-49.9, adult Depression Anxiety Insomnia Elevated LFTs PCOS (polycystic ovarian syndrome) Impaired fasting glucose Family History Family History Father No problems noted. Mother Diverticulitis Other Substance abuse Surgical History Surgical History History of esophagogastroduodenoscopy (EGD) Hx of colonoscopy Previous section History of Problems with Anesthesia: No Social History Social History Household Members: None Housing: Apartment Are you a primary home health care social worker to a significant other at home: No Do you presently have visiting nurse or other home services: No Alcohol intake: former Patient Tobacco Use Status: Never used Tobacco Tobacco use type: Cigarette e-Cigarette/Vaping Use: Never Used Second Hand Smoke Exposure: No Advance Directives Date on File: 04/14/20 service: No Current occupational status: employed Cognitive needs: No Hearing needs: No Vision needs: No Meds Allergies Allergy/AdvReac Type Severity Reaction Status Date / Time No Known Allergies Allergy Verified 05/01/25 14:12 Home Medications ?Medication ?Instructions ?Recorded ?Confirmed ?Last Taken ?Type clonidine HCl 0.1 mg tablet 0.1 mg PO BEDTIME 05/01/25 05/01/25 04/30/25 History magnesium glycinate 300 mg PO BEDTIME PRN Sleep 05/01/25 05/01/25 04/30/25 History Exam Airway Mallampati Class: III (thick neck, crown bottom right lateral) TM Dist: >3cm Neck ROM: Full Heart: rrr Lungs: cta Assessment and Plan Assessment Anesthesia Assessment: Anesthesia Plan Discussed and Chart Reviewed Final Anesthetic Review History of Problems with Anesthesia: No NPO: Yes ASA Class: III Final Preanesthetic Review: No Changes in Pt Med Stat, Meds/Allgs Chart Reviewed and Consent Obtained/Reviewed Patient Risk: Intermediate Procedure Risk: Low Anesthetic Plan Anesthetic Plan: GA Disposition: Standard PACU
--- NOTE | 2025-05-02 08:13 | PM.HPGS ---
History of Present Illness History of Present Illness Date of Service: 05/02/25 <Brian Llamas PA-C - Last Filed: 05/02/25 09:49> 05/02/25 <Gigi Lopez MD - Last Filed: 05/02/25 14:39> Chief complaint: Acute cholecystitis <Brian Llamas PA-C - Last Filed: 05/02/25 09:49> Narrative: Erin Lay is a 44 year old female with a history of PCOS, diabetes, anxiety/depression, ARTEAGA, obesity who presented to the ED for abdominal pain, nausea and vomiting since last Friday. She states that this happened immediately following a meal. She developed intense out right upper quadrant pain following this meal. Initially thought she had food poisoning and tried to manage at home. Pain was starting to resolve., the next day she tried to have a small bite of steak and cheese and felt this discomfort returning. She thinks that because it was a small amount of food the pain was not so bad. The next morning she tried to have a bowl of cereal and states her pain returned with increased intensity and returned to nausea and vomiting so she decided to be seen at the emergency department. Workup in the ED included abdominal ultrasound, showing normal common bile duct, cholelithiasis and sludge within the gallbladder. The gallbladder was distended without wall thickening or pericholecystic fluid. Positive sonographic Friend's. There was no leukocytosis on labs, there was increased total bili, 2.2. Additionally elevated LFTs. She was started on IV fluids, Zosyn. Currently she is not in any pain. Denies nausea or vomiting. States she only gets these symptoms when eating. Denies fevers or chills.. Surgical history significant for , 18 years ago. Denies other abdominal surgeries. <Brian Llamas PA-C - Last Filed: 05/02/25 09:49> [facility] Past Medical History Medical History: Medical History JUNAID III (cervical intraepithelial neoplasia grade III) with severe dysplasia History of COVID-19 IAN (obstructive sleep apnea) Morbid obesity with BMI of 50.0-59.9, adult Allergic rhinitis Migraine Morbid obesity with BMI of 45.0-49.9, adult Depression Anxiety Insomnia Elevated LFTs PCOS (polycystic ovarian syndrome) Impaired fasting glucose <Brian Llamas PA-C - Last Filed: 05/02/25 09:49> Family History Family History: Family History Father No problems noted. Mother Diverticulitis Other Substance abuse <Brian Llamas PA-C - Last Filed: 05/02/25 09:49> Surgical History Surgical History: Surgical History History of esophagogastroduodenoscopy (EGD) Hx of colonoscopy Previous section <Brian Llamas PA-C - Last Filed: 05/02/25 09:49> Social History Social History: Social History Household Members: Children Housing: Apartment Are you a primary respiratory care faculty to a significant other at home: No Do you presently have visiting nurse or other home services: No Alcohol intake: former Patient Tobacco Use Status: Never used Tobacco Tobacco use type: Cigarette Smoked in Last 30 Days: No e-Cigarette/Vaping Use: Never Used Second Hand Smoke Exposure: No Use of substances other than those prescribed or required for medical reasons: No Advance Directives: No Advance Directives Information Provided: Yes Advance Directives Date on File: 04/14/20 Do you have a plan to hurt others: No Plan Nutrition Risks: No Nutritional Risk Patient : No service: No Current occupational status: employed Cognitive needs: No Hearing needs: No Vision needs: No <Brian Llamas PA-C - Last Filed: 05/02/25 09:49> Meds Allergies/Adverse reactions: Allergies Allergy/AdvReac Type Severity Reaction Status Date / Time No Known Allergies Allergy Verified 05/01/25 14:12 <BERNARDO Burris Last Filed: 05/02/25 09:49> Active Medications: Current Medications Hydromorphone HCl (Hydromorphone Hcl 0.5 Mg/0.5 Ml Syringe) 0.5 mg IVPUSH Q3H PRN; Protocol PRN Reason: Pain, Severe (Pain Scale 7-10) Acetaminophen (Ofirmev) 1,000 mg in 100 mls @ 400 mls/hr IV Q6H PRN PRN Reason: Pain, Mild (Pain Scale 1-3) Piperacillin Sod/Tazobactam (Sod 3.375 gm/ Sodium Chloride) 50 mls @ 100 mls/hr IV Q6H [facility] Last Infusion: 05/02/25 08:03 Dose: Infused Lactated Ringer's (Lr) 1,000 mls @ 100 mls/hr IVCONT .Q10H [facility] Last Admin: 05/02/25 03:55 Dose: 100 mls/hr Ondansetron HCl (Ondansetron Hcl 4 Mg/2 Ml Vial) 4 mg IVPUSH QID PRN PRN Reason: Nausea Oxycodone HCl (Oxycodone Hcl Immed Release 5 Mg Tablet) 5 mg PO Q6H PRN PRN Reason: Pain, Moderate(Pain Scale 4-6) Sodium Chloride (0.9 % Sodium Chloride Flush 3 Ml Syringe) 3 ml IVFLUSH QSHIFT [facility] Last Admin: 05/02/25 07:34 Dose: Not Given Zolpidem Tartrate (Zolpidem Tartrate 5 Mg Tablet) 5 mg PO BEDTIME PRN PRN Reason: Insomnia <BERNARDO Burris Last Filed: 05/02/25 09:49> Home medications: Home Medications ?Medication ?Instructions ?Recorded ?Confirmed ?Last Taken ?Type clonidine HCl 0.1 mg tablet 0.1 mg PO BEDTIME 05/01/25 05/01/25 04/30/25 History magnesium glycinate 300 mg PO BEDTIME PRN Sleep 05/01/25 05/01/25 04/30/25 History <BERNARDO Burris Last Filed: 05/02/25 09:49> Physical Exam Vital Signs: Vital Signs: Last Vital Signs Temp 98 F 05/02/25 07:02 Pulse 70 05/02/25 07:02 Resp 16 05/02/25 07:02 BP 136/77 05/02/25 07:02 Pulse Ox 95 05/02/25 07:02 O2 Del Method Room Air 05/02/25 07:02 BMI result Body Mass Index 47.6 <BERNARDO Burris Last Filed: 05/02/25 09:49> Const: General: comfortable and no acute distress <BERNARDO Burris Last Filed: 05/02/25 09:49> Orientation/consciousness: patient oriented x3 <BERNARDO Burris Last Filed: 05/02/25 09:49> GI: Inspection: No distended and Yes obesity <BERNARDO Burris Last Filed: 05/02/25 09:49> Palpation (GI): Soft to palpation and nontender <BERNARDO Burris Last Filed: 05/02/25 09:49> Neuro: General: patient oriented x3 <BERNARDO Burris Last Filed: 05/02/25 09:49> Results Results Labs: Short CBC 05/01/25 Range/Units 15:37 WBC 10.6 (4.8-10.8) X10*3/uL Hgb 13.4 (12.0-16.0) g/dl Hct 39.9 (37.0-47.0) % Plt Count 258 (160-400) X10*3/uL BMP 05/01/25 15:37 Sodium 141 Potassium 4.0 Chloride 107 Carbon Dioxide 26 BUN 9 Creatinine 0.65 Calcium 9.4 D Liver Function 05/01/25 Range/Units 15:37 Total Bilirubin 2.2 H (0.0-1.0) mg/dL AST 202 H (5-31) U/L ALT 195 H (0-31) U/L Alkaline Phosphatase 187 H (39-117) U/L Albumin 3.8 (3.5-5.0) g/dL Urine 05/01/25 Range/Units 15:30 Urine Color Dark Yellow Urine Appearance Clear Urine pH 7.0 (5.0-9.0) Ur Specific [place] 1.020 (1.005-1.025) Urine Protein Trace (Neg-Trace) mg/dL Urine Glucose (UA) Negative (Negative) mg/dL <BERNARDO Burris Last Filed: 05/02/25 09:49> Assessment and Plan (1) Acute cholecystitis: Status: Acute <BERNARDO Burris Last Filed: 05/02/25 09:49> (2) Elevated LFTs: Status: Acute <BERNARDO Burris Last Filed: 05/02/25 09:49> 44 year old female with a history of PCOS, diabetes, anxiety/depression, ARTEAGA, obesity who presented to the ED for abdominal pain, nausea and vomiting since last Friday. The pain was brought on by meal, she only gets pain following meals. She is comfortable right now at rest, denies pain, nausea, vomiting but has not had anything since yesterday morning. Describes a sharp right upper quadrant pain after eating with associated nausea and vomiting. Workup in the ED showing no leukocytosis, there was elevated bilirubin 2.2, elevated liver enzymes. Abdominal ultrasound significant for normal common bile duct, cholelithiasis and sludge, some small gallbladder polyps. There was a distended gallbladder with no wall thickening or pericholecystic fluid, positive Friend sign. On exam her abdomen was soft and benign. I was unable to appreciate a positive Friend's sign on exam today. She was started on IV fluids in IV Zosyn. Currently NPO. Given her elevated liver enzymes we will obtain MRCP prior to rule out common bile duct stone. If negative we will likely proceed with laparoscopic cholecystectomy possible open. We discussed the risks, benefits, alternatives. Patient agreeable to this plan. Continue IV fluids, IV Zosyn MRCP today Follow-up labs, trend LFTs Continue NPO <Brian Llamas PA-C - Last Filed: 05/02/25 09:49> 44 year old female with a history of PCOS, diabetes, anxiety/depression, ARTEAGA, obesity who presented to the ED for abdominal pain, nausea and vomiting since last Friday. The pain was brought on by meal, she only gets pain following meals. She is comfortable right now at rest, denies pain, nausea, vomiting but has not had anything since yesterday morning. Describes a sharp right upper quadrant pain after eating with associated nausea and vomiting. Workup in the ED showing no leukocytosis, there was elevated bilirubin 2.2, elevated liver enzymes. Abdominal ultrasound significant for normal common bile duct, cholelithiasis and sludge, some small gallbladder polyps. There was a distended gallbladder with no wall thickening or pericholecystic fluid, positive Friend sign. On exam her abdomen was soft and benign. I was unable to appreciate a positive Friend's sign on exam today. She was started on IV fluids in IV Zosyn. Currently NPO. Given her elevated liver enzymes we will obtain MRCP prior to rule out common bile duct stone. If negative we will likely proceed with laparoscopic cholecystectomy possible open. We discussed the risks, benefits, alternatives. Patient agreeable to this plan. Continue IV fluids, IV Zosyn MRCP today Follow-up labs, trend LFTs Continue NPO Patient seen and examined independently and agree with the above assessment and plan. MRI performed and no stone noted in the common bile duct. We will trend the LFTs and plan on laparoscopic or possible open cholecystectomy on Friday. <Gigi Lopez MD - Last Filed: 05/02/25 14:39> Quality Stroke Does the patient have a stroke diagnosis?: No <Brian Llamas PA-C - Last Filed: 05/02/25 09:49> VTE Prior VTE?: No <Brian Llamas PA-C - Last Filed: 05/02/25 09:49> VTE Risk Level:: Surgical - moderate <Brian Llamas PA-C - Last Filed: 05/02/25 09:49> VTE Device Contraindication: N/A - Device Ordered <Brian Llamas PA-C - Last Filed: 05/02/25 09:49> VTE Drug Contraindication: Treatment Not Indicated <Brian Llamas PA-C - Last Filed: 05/02/25 09:49> Procedures Date of Service Date of Service: 05/02/25 <Brian Llamas PA-C - Last Filed: 05/02/25 09:49> 05/02/25 <Gigi Lopez MD - Last Filed: 05/02/25 14:39>
--- NOTE | 2025-05-02 08:34 | HO.POSTANES ---
Post Anesthesia Evaluation Post Anesthesia Evaluation Date of Service: 05/02/25 Vital Signs: Vital Signs Temp Pulse Resp BP Pulse Ox O2 Del Method 05/02/25 07:02 98 F 70 16 136/77 95 Room Air 05/02/25 00:09 98.3 F 77 15 131/78 95 Room Air Anesthesia: General Mental Status: Awake Pain Control: Satisfactory Nausea/Vomiting: None Hydration: Adequate Anesthesia-Related Issues: No Anes. Related Issues
[2025-05-02 09:49] LABS: Hematocrit 38.1 % (37.0-47.0); Hemoglobin 12.9 g/dl (12.0-16.0); Mean Corpuscular HGB Conc 33.9 g/dl (31.0-35.0); Mean Corpuscular Hemoglobin 29.1 pg (27.0-33.0); Mean Corpuscular Volume 85.8 fL (80.0-98.0); NRBC Abs Auto 0.000 X10*3/uL (0.0-0.012); NRBC Pct Auto 0.0 /100WBC (0.0-0.2); Platelet Count 220 X10*3/uL (160-400); Red Blood Count 4.44 X10*6/uL (4.20-5.50); White Blood Count 9.1 X10*3/uL (4.8-10.8)
--- NOTE | 2025-05-02 10:55 | PC.NURSE ---
MRI form completed with patient at faxed to mri at 1050. patient states she is claustrophobic and wont be able to tolerate the MRI machine. attempted to call ordering provider with no answer at this time. bridgett frias is currently not working, will attempt notification again.
--- NOTE | 2025-05-02 10:57 | HO.NURTONUR ---
Erin is a 44F full code who presented to the ED with abd pain n/v x3days. RUQ pain worsening with eating. patient scan positive for cholelithiasis. plan for IV abx and surgery under general surgery. patient is alert and oriented x4, ambulatory at baseline. patient has LR running at 100ml/hr. patient has a #20 in the LAC.
--- NOTE | 2025-05-02 11:00 | PC.NURSE ---
assumed care of patient at 0700, patient is awake and alert, resp even and unlabored. patient denies any pain at this time. form completed for MRCP, faxed to MRI. patient has LR running at 100ml/hr.
[2025-05-02 11:06] LABS: Alanine Aminotransferase 173 U/L (0-31); Albumin Level 3.4 g/dL (3.5-5.0); Alkaline Phosphatase 172 U/L (39-117); Anion Gap 14 (12-20); Aspartate Amino Transferase 148 U/L (5-31); Blood Urea Nitrogen 8 mg/dL (9-16); Calcium 8.5 mg/dL (8.4-10.2); Carbon Dioxide 24 mmol/L (22-29); Chloride 106 mmol/L (96-108); Creatinine Clr Calc Pharmacy 156.2; Estimated Glomerular Filt Rate > 60; Potassium 3.9 mmol/L (3.3-5.1); Sodium 140 mmol/L (135-145); Total Protein 6.5 g/dL (6.5-8.0)
--- NOTE | 2025-05-02 12:37 | PC.NURSE ---
RN to RN report received by phone. Per previous RN Estrella, patient is currently away at MRI. Plan to move to [facility] upon completion of MRI. Care to be assumed by this RN upon arrival to [facility] ED.
--- NOTE | 2025-05-02 13:26 | PC.NURSE ---
Patient arrived from MRI at this time. Care ongoing by this RN.
--- NOTE | 2025-05-02 14:01 | PC.NURSE ---
Called general surgery (Manohar/Jessica) regarding OR status of this patient. Patient reports that estimated OR date has been moved to 05/04, per [facility] Patient Portal. Surgeons are currently in OR with another patient, will come speak to patient after 2:45pm today with updates. Surgical typing secretary aware that pt's diet is still NPO at this time, ?update to clear liquid diet, pending MD approval. Pt aware of plan. LR infusing at 100 ml/hour at this time, given ice chips. Care ongoing by this RN.
[2025-05-02 14:30] VITALS: BP 127/69; PULSE 66; RESP 18; TEMP 36.5; O2SAT 96
[2025-05-02 20:00] VITALS: BP 122/97; PULSE 68; RESP 18; TEMP 36.6; O2SAT 95
[2025-05-02 21:32] VITALS: BP 122/97; PULSE 68; RESP 18; TEMP 36.6; O2SAT 95
[2025-05-02 23:39] VITALS: BP 130/74; PULSE 83; RESP 18; TEMP 36.1; O2SAT 98
[2025-05-03 03:57] VITALS: BP 134/68; PULSE 84; RESP 18; TEMP 36.3; O2SAT 96
[2025-05-03 06:06] LABS: Alanine Aminotransferase 138 U/L (0-31); Albumin Level 3.4 g/dL (3.5-5.0); Alkaline Phosphatase 156 U/L (39-117); Anion Gap 10 (12-20); Aspartate Amino Transferase 97 U/L (5-31); Blood Urea Nitrogen 6 mg/dL (9-16); Calcium 8.5 mg/dL (8.4-10.2); Carbon Dioxide 26 mmol/L (22-29); Chloride 107 mmol/L (96-108); Creatinine Clr Calc Pharmacy 151.6; Estimated Glomerular Filt Rate > 60; Potassium 3.4 mmol/L (3.3-5.1); Sodium 140 mmol/L (135-145); Total Protein 6.4 g/dL (6.5-8.0)
[2025-05-03 07:27] VITALS: BP 109/54; PULSE 76; RESP 18; TEMP 36.4; O2SAT 97
--- NOTE | 2025-05-03 07:46 | P.PNGS_ITS ---
Subjective Subjective Date of Service: 05/03/25 Interval history: Resting comfortably in bed. Denies abdominal pain, nausea, vomiting. She did try some clear liquid diet yesterday, [place] ice, denies recurrence of symptoms. She is ambulating without issue denies fevers or chills. Passing gas, no bowel movement Physical Exam 2 Vital Signs: Vital Signs: Last Vital Signs Temp 97.5 F 05/03/25 07:27 Pulse 76 05/03/25 07:27 Resp 18 05/03/25 07:27 BP 109/54 L 05/03/25 07:27 Pulse Ox 97 05/03/25 07:27 O2 Del Method Room Air 05/03/25 07:27 BMI result Body Mass Index 47.6 Const: General: comfortable and no acute distress Nutritional Appearance: o bese Orientation/consciousness: patient oriented x3 Resp: Effort & Inspection: normal respiratory effort and able to speak in complete sentences GI: Palpation (GI): Soft to palpation, nontender and no guarding Neuro: General: patient oriented x3 Objective Data Active Medications Hydromorphone HCl (Hydromorphone Hcl 0.5 Mg/0.5 Ml Syringe) 0.5 mg IVPUSH Q3H PRN; Protocol PRN Reason: Pain, Severe (Pain Scale 7-10) Acetaminophen (Ofirmev) 1,000 mg in 100 mls @ 400 mls/hr IV Q6H PRN PRN Reason: Pain, Mild (Pain Scale 1-3) Last Infusion: 05/02/25 13:56 Dose: Infused Documented By: BRIANNA Piperacillin Sod/Tazobactam (Sod 3.375 gm/ Sodium Chloride) 50 mls @ 100 mls/hr IV Q6H [facility] Last Infusion: 05/03/25 06:21 Dose: Infused Documented By: YAKOV Lactated Ringer's (Lr) 1,000 mls @ 100 mls/hr IVCONT .Q10H [facility] Last Admin: 05/02/25 21:44 Dose: 100 mls/hr Documented By: YAKOV Ondansetron HCl (Ondansetron Hcl 4 Mg/2 Ml Vial) 4 mg IVPUSH QID PRN PRN Reason: Nausea Oxycodone HCl (Oxycodone Hcl Immed Release 5 Mg Tablet) 5 mg PO Q6H PRN PRN Reason: Pain, Moderate(Pain Scale 4-6) Sodium Chloride (0.9 % Sodium Chloride Flush 3 Ml Syringe) 3 ml IVFLUSH QSHIFT [facility] Last Admin: 05/02/25 21:57 Dose: Not Given Documented By: YAKOV Non-Admin Reason: IV Running Zolpidem Tartrate (Zolpidem Tartrate 5 Mg Tablet) 5 mg PO BEDTIME PRN PRN Reason: Insomnia Last Admin: 05/02/25 22:20 Dose: 5 mg Documented By: YAKOV Labs 05/02/25 09:29 05/03/25 05:14 Labs: Laboratory Results - last 24 hr 05/02/25 05/02/25 05/03/25 09:29 10:35 05:14 MCV 85.8 MCH 29.1 MCHC 33.9 RDW 13.8 Plt Count 220 MPV 9.6 Absolute Nucleated RBC 0.000 Nucleated RBC % (auto) 0.0 Anion Gap 14 10 L Estim Creat Clear Calc 156.2 151.6 Estimated GFR > 60 > 60 Random Glucose 124 H 106 Calcium 8.5 D 8.5 Total Bilirubin 1.9 H 1.3 H AST 148 H 97 H ALT 173 H 138 H Alkaline Phosphatase 172 H 156 H Total Protein 6.5 6.4 L Albumin 3.4 L 3.4 L Microbiology Microbiology Results: Microbiology 05/01/25 18:00 Blood Culture - Preliminary Blood - Venous No growth after 24 hours. 05/01/25 18:00 Blood Culture - Preliminary Blood - Venous No growth after 24 hours. Procedures Date of Service Date of Service: 05/03/25 Progress Note: A&P Assessment and plan (1) Acute cholecystitis: Status: Acute (2) Elevated LFTs: Status: Acute Plan 44 year old female admitted for acute cholecystitis. Doing well today, denies abdominal pain, nausea, vomiting. She did trial CLD without recurrence of symptoms. MRCP yesterday showed now CBD stones, suggestive of calculous cholecystitis. Bilirubin and liver enzymes trending down slowly. On exam her abdomen is soft and benign. Plan for surgery tomorrow, patient agreeable. For now will continue CLD as tolerated NPO after midnight. continue IV zosyn CLD as tolerated Lap clau possible open tomorrow. Time Spent With Patient Time: Total time managing care of this patient today ____ minutes. Quality Stroke Does the patient have a stroke diagnosis?: No VTE Prior VTE?: No VTE Risk Level:: Surgical - moderate VTE Device Contraindication: N/A - Device Ordered VTE Drug Contraindication: Treatment Not Indicated
[2025-05-03] MEDS: Lactated Ringers 1,000 ML 100 ML IVCONT ×2 (08:31→20:16)
[2025-05-03 09:21] VITALS: BP 109/54; PULSE 76; RESP 18; TEMP 36.4
--- NOTE | 2025-05-03 10:27 | MHC.CM.PN ---
[facility] DELIVERED PT LIVES ALONE AND IS FUNCTIONALLY INDEPENDENT. NO SERVICES OR DME. PT IS EMPLOYED P/T. PT DECLINES COMPLETING A HCP AT THIS TIME, NEEDS TIME TO THINK ABOUT WHO SHE WOULD NAME. PCP DR. ROBLES DP: HOME, NO SERVICES ANTICIPATED. PT HAS OWN RIDE HOME. CM WILL CONTINUE TO FOLLOW FOR ANY CHANGE TO DC PLAN/NEEDS.
[2025-05-03 16:00] VITALS: BP 111/55; PULSE 69; RESP 19; TEMP 36.4; O2SAT 98
[2025-05-03 20:00] VITALS: BP 129/61; PULSE 78; RESP 19; TEMP 36.3; O2SAT 98
[2025-05-04] VITALS (12 sets, daily range): BP systolic 114–169; BP diastolic 53–82; PULSE 71–120; RESP 16–23; TEMP 36.1–37.3; O2SAT 93–100
[2025-05-04] MEDS: Lactated Ringers 1,000 ML 100 ML IVCONT ×3 (05:14→22:36)
--- NOTE | 2025-05-04 07:40 | PC.NURSE ---
Report given to SSS at this time.
--- NOTE | 2025-05-04 08:51 | PM.PNGS ---
Subjective Subjective Date of Service: 05/04/25 Interval history: No new complaints. States she tolerated clear liquids yesterday, did not want to eat dinner because the broth was to watery. Denies nausea or vomiting. Denies abdominal pain Physical Exam Vital Signs: Vital Signs: Last Vital Signs Temp 97.4 F 05/04/25 07:39 Pulse 97 05/04/25 07:39 Resp 16 05/04/25 07:39 BP 114/58 L 05/04/25 07:39 Pulse Ox 98 05/04/25 07:39 O2 Del Method Room Air 05/04/25 07:39 BMI result Body Mass Index 47.6 Const: General: comfortable and no acute distress Orientation/consciousness: patient oriented x3 Resp: Effort & Inspection: normal respiratory effort and able to speak in complete sentences GI: Inspection: No distended Palpation (GI): Soft to palpation and nontender Neuro: General: patient oriented x3 Objective Data Active Medications Hydromorphone HCl (Hydromorphone Hcl 0.5 Mg/0.5 Ml Syringe) 0.5 mg IVPUSH Q3H PRN; Protocol PRN Reason: Pain, Severe (Pain Scale 7-10) Acetaminophen (Ofirmev) 1,000 mg in 100 mls @ 400 mls/hr IV Q6H PRN PRN Reason: Pain, Mild (Pain Scale 1-3) Last Infusion: 05/03/25 09:21 Dose: Infused Documented By: DUSTIN Piperacillin Sod/Tazobactam (Sod 3.375 gm/ Sodium Chloride) 50 mls @ 100 mls/hr IV Q6H [facility] Last Infusion: 05/04/25 05:50 Dose: Infused Documented By: YAKOV Lactated Ringer's (Lr) 1,000 mls @ 100 mls/hr IVCONT .Q10H [facility] Last Admin: 05/04/25 05:14 Dose: 100 mls/hr Documented By: YAKOV Ondansetron HCl (Ondansetron Hcl 4 Mg/2 Ml Vial) 4 mg IVPUSH QID PRN PRN Reason: Nausea Oxycodone HCl (Oxycodone Hcl Immed Release 5 Mg Tablet) 5 mg PO Q6H PRN PRN Reason: Pain, Moderate(Pain Scale 4-6) Sodium Chloride (0.9 % Sodium Chloride Flush 3 Ml Syringe) 3 ml IVFLUSH QSHIFT [facility] Last Admin: 05/04/25 06:58 Dose: Not Given Documented By: COUGHLM Non-Admin Reason: IV Running Zolpidem Tartrate (Zolpidem Tartrate 5 Mg Tablet) 5 mg PO BEDTIME PRN PRN Reason: Insomnia Last Admin: 05/04/25 00:12 Dose: 5 mg Documented By: YAKOV Labs 05/04/25 08:55 05/03/25 05:14 Microbiology Microbiology Results: Microbiology 05/01/25 18:00 Blood Culture - Preliminary Blood - Venous No growth after 48 hours. 05/01/25 18:00 Blood Culture - Preliminary Blood - Venous No growth after 48 hours. Procedures Date of Service Date of Service: 05/04/25 Progress Note: A&P Assessment and plan (1) Acute cholecystitis: Status: Acute (2) Elevated LFTs: Status: Acute Plan 44 year old female admitted for acute cholecystitis. Doing well today, denies abdominal pain, nausea, vomiting. She did trial CLD without recurrence of symptoms. MRCP showing no CBD stones, suggestive of calculous cholecystitis. Bilirubin and liver enzymes trending down slowly. Very mild leukocytosis this morning, 10.9. On exam her abdomen is soft and benign. Plan for surgery this afternoon, patient agreeable. NPO for procedure today, we will advance diet after procedure. continue IV zosyn npo for surgery today Lap clau possible open this afternoon. Time Spent With Patient Time: Total time managing care of this patient today ____ minutes. Quality Stroke Does the patient have a stroke diagnosis?: No VTE Prior VTE?: No VTE Risk Level:: Surgical - moderate VTE Device Contraindication: N/A - Device Ordered VTE Drug Contraindication: Treatment Not Indicated
[2025-05-04 09:18] LABS: Hematocrit 41.5 % (37.0-47.0); Hemoglobin 13.9 g/dl (12.0-16.0); Mean Corpuscular HGB Conc 33.5 g/dl (31.0-35.0); Mean Corpuscular Hemoglobin 28.5 pg (27.0-33.0); Mean Corpuscular Volume 85.2 fL (80.0-98.0); NRBC Abs Auto 0.000 X10*3/uL (0.0-0.012); NRBC Pct Auto 0.0 /100WBC (0.0-0.2); Platelet Count 244 X10*3/uL (160-400); Red Blood Count 4.87 X10*6/uL (4.20-5.50); White Blood Count 10.9 X10*3/uL (4.8-10.8)
[2025-05-04 09:29] LABS: Alanine Aminotransferase 127 U/L (0-31); Albumin Level 3.8 g/dL (3.5-5.0); Alkaline Phosphatase 167 U/L (39-117); Anion Gap 13 (12-20); Aspartate Amino Transferase 89 U/L (5-31); Blood Urea Nitrogen 6 mg/dL (9-16); Calcium 9.1 mg/dL (8.4-10.2); Carbon Dioxide 22 mmol/L (22-29); Chloride 108 mmol/L (96-108); Creatinine Clr Calc Pharmacy 153.9; Estimated Glomerular Filt Rate > 60; Potassium 3.7 mmol/L (3.3-5.1); Sodium 139 mmol/L (135-145); Total Protein 7.1 g/dL (6.5-8.0)
--- NOTE | 2025-05-04 11:46 | PC.NURSE ---
20g left ac intact no leaking
[2025-05-04] MEDS: Lactated Ringers 1,000 ML 50 ML IVCONT (11:51)
--- NOTE | 2025-05-04 14:25 | W.PM.OPN ---
Operative Note Operative Note Date of Service: 05/04/25 Narrative: Preoperative diagnosis: Acute cholecystitis due to cholelithiasis Postoperative diagnosis: Same Procedure: Laparoscopic cholecystectomy Surgeon: Gigi Lopez MD Orthotics Assistant: Mariangel Fox PA-C Anesthesia: General endotracheal Indications for procedure: 44-year-old female patient presenting with complaints of abdominal pain in the right upper quadrant found to have gallstones within the gallbladder. She presents today for laparoscopic or possible open cholecystectomy. Operative findings: Acutely inflamed gallbladder with adhesions consistent with acute cholecystitis Specimen: gallbladder Estimated blood loss: 10 mL Complications: None Procedure details: Patient was brought to the OR and placed in a supine position. After administering general anesthesia the patient's abdomen was prepped with ChloraPrep and draped in a sterile fashion. A surgical time-out was called the consent confirmed. Patient received preoperative antibiotics and Venodyne boots were in place. Local anesthesia consisting of 0.5% Sensorcaine without epinephrine was infiltrated in a periumbilical region. A 5 mm incision was made above the umbilicus in a transverse fashion. The Veress needle was then inserted while elevating abdominal cavity with towel clips. After positive drop test the abdomen was insufflated to a pressure of 15 mm of mercury. The Veress needle was then removed and a 5 mm trocar inserted. The camera was inserted in the abdomen explored. A 12 mm trocar was then placed in the epigastrium. Two 5 mm trocars placed in the right upper quadrant by the back office medical assistant. The patient was placed in reverse Trendelenburg positioning and rotated to the left. The gallbladder was grasped with the fundus and retracted cephalad by the back office medical assistant. The infundibulum was then grasped and retracted away from the liver bed, also by the back office medical assistant. The Dolphin dissected was then used by the surgeon to dissect the peritoneum off the infundibulum to reveal the junction with the cystic duct. Cystic artery was noted slightly medial and posterior to the cystic duct. After obtaining a critical view the cystic duct was doubly clipped and divided. The cystic artery was then doubly clipped and divided. The gallbladder was then dissected off the liver bed using electrocautery with an L hook. Hemostasis was assured all times using the electrocautery. When the gallbladder is completely dissected off the liver bed was placed in an Endo-Catch bag and brought out through the epigastric incision. The gallbladder was sent to pathology for further examination. The abdomen was then re-examined. The liver bed was irrigated and suctioned dry. No bleeding or bile leak could be identified. CO2 was then evacuated and all trocars removed. Fascia was closed at the epigastric incision using a [id number] Polysorb suture. Skin was closed in all incisions using a subcuticular 4 0 Polysorb suture by both the surgeon and back office medical assistant. Sterile dressings consisting of Steri-Strips, 2 x 2 gauze, and Tegaderm were then applied. The patient tolerated the procedure well. Sponge instrument and needle counts reported as correct. The patient was transferred to PACU in stable condition.
--- NOTE | 2025-05-04 16:29 | MHC.CM.PN ---
Patient is not medically cleared to discharge today. DP Home self care private transport.
[2025-05-04] MEDS: 0.9 % Sodium Chloride Flush 3 ML SYRINGE IVFLUSH (21:13)
[2025-05-05 03:27] VITALS: BP 139/70; PULSE 92; RESP 18; TEMP 36.4; O2SAT 97
--- NOTE | 2025-05-05 07:34 | P.PNGS_ITS ---
Subjective Subjective Date of Service: 05/05/25 Interval history: Overall doing well, struggling with some pain control. Pain mostly in the center of the abdomen between umbilical and epigastric incision sites. His only use IV Tylenol for pain control as she did not want to become constipated from taking narcotics. She feels like she needs more pain control. Reports yesterday she was up and walking around after the procedure, felt a little dizzy the 1st time but felt better the 2nd time. Feel tired after procedure and did rest a little bit. She had some light diet yesterday but really was not very hungry. Physical Exam 2 Vital Signs: Vital Signs: Last Vital Signs Temp 97.5 F 05/05/25 03:27 Pulse 92 05/05/25 03:27 Resp 18 05/05/25 03:27 BP 139/70 05/05/25 03:27 Pulse Ox 97 05/05/25 03:27 O2 Del Method Room Air 05/05/25 03:27 O2 Flow Rate 2 05/04/25 19:54 BMI result Body Mass Index 47.6 Const: General: comfortable and no acute distress O rientation/consciousness: patient oriented x3 Resp: Effort & Inspection: normal respiratory effort and able to speak in complete sentences GI: Other: Incision site dressings in place clean dry and intact. No strike through. No surrounding cellulitis Inspection: No distended Palpation (GI): Soft to palpation and Tenderness to palpation present (GI) (Incisional) Neuro: General: patient oriented x3 Objective Data Active Medications Clonidine HCl (Clonidine Hcl 0.1 Mg Tablet) 0.1 mg PO BEDTIME JERAD; Protocol Last Admin: 05/05/25 00:45 Dose: Not Given Documented By: TUNG Non-Admin Reason: Patient Refused Escitalopram Oxalate (Escitalopram Oxalate 10 Mg Tablet) 10 mg PO DAILY JERAD Hydromorphone HCl (Hydromorphone Hcl 0.5 Mg/0.5 Ml Syringe) 0.5 mg IVPUSH Q3H PRN; Protocol PRN Reason: Pain, Severe (Pain Scale 7-10) Acetaminophen (Ofirmev) 1,000 mg in 100 mls @ 400 mls/hr IV Q6H PRN PRN Reason: Pain, Mild (Pain Scale 1-3) Last Infusion: 05/04/25 21:24 Dose: Infused Documented By: TUNG Piperacillin Sod/Tazobactam (Sod 3.375 gm/ Sodium Chloride) 50 mls @ 100 mls/hr IV Q6H [facility] Last Infusion: 05/05/25 07:12 Dose: Infused Documented By: MATILDE Lactated Ringer's (Lr) 1,000 mls @ 100 mls/hr IVCONT .Q10H [facility] Last Infusion: 05/05/25 06:18 Dose: 0 mls/hr Documented By: TUNG Loratadine (Loratadine 10 Mg Tablet) 10 mg PO DAILY PRN PRN Reason: allergy symptoms Metformin HCl (Metformin Hcl Er 500 Mg Tab.Er.24h) 1,000 mg PO BID [facility] Last Admin: 05/04/25 21:05 Dose: Not Given Documented By: TUNG Non-Admin Reason: Patient Refused Naloxone HCl (Naloxone Hcl 0.4 Mg/Ml Vial) 0.04 mg IVPUSH Q5M PRN PRN Reason: Excessive sedation or RR < 8 Ondansetron HCl (Ondansetron Hcl 4 Mg/2 Ml Vial) 4 mg IVPUSH QID PRN PRN Reason: Nausea Oxycodone HCl (Oxycodone Hcl Immed Release 5 Mg Tablet) 5 mg PO Q6H PRN PRN Reason: Pain, Moderate(Pain Scale 4-6) Sodium Chloride (0.9 % Sodium Chloride Flush 3 Ml Syringe) 3 ml IVFLUSH QSHIFT [facility] Last Admin: 05/05/25 07:13 Dose: Not Given Documented By: MATILDE Non-Admin Reason: IV Running Zolpidem Tartrate (Zolpidem Tartrate 5 Mg Tablet) 5 mg PO BEDTIME PRN PRN Reason: Insomnia Last Admin: 05/05/25 00:39 Dose: 5 mg Documented By: TUNG Labs 05/04/25 08:55 05/04/25 08:55 Labs: Laboratory Results - last 24 hr 05/04/25 08:55 MCV 85.2 MCH 28.5 MCHC 33.5 RDW 13.4 Plt Count 244 MPV 9.4 Absolute Nucleated RBC 0.000 Nucleated RBC % (auto) 0.0 Anion Gap 13 Estim Creat Clear Calc 153.9 Estimated GFR > 60 Random Glucose 100 Calcium 9.1 D Total Bilirubin 1.3 H AST 89 H ALT 127 H Alkaline Phosphatase 167 H Total Protein 7.1 Albumin 3.8 Procedures Date of Service Date of Service: 05/05/25 Progress Note: A&P Assessment and plan (1) Acute cholecystitis: Status: Acute (2) Elevated LFTs: Status: Acute Plan 44 year old female admitted for acute cholecystitis. Now POD 1 s/p laparoscopic cholecystectomy. Doing well today, having some difficulty with pain control. Pain located in the epigastric and umbilical incision sites. Has only used IV Tylenol she is scared to be constipated partaken narcotics. Reassured her that is okay to use narcotics as needed, can also use p.r.n. stool softeners prophylactically. Recommended trying oral pain meds rather than IV. Denies nausea, vomiting. She had some regular diet which she tolerated well but did not have much of an appetite so we will see today. Repeat labs pending, trending liver enzymes. Likely needs a little more time to control pain prior to discharge. We will check an this afternoon she will she is doing. continue IV zosyn Diet as tolerated, recommend low-fat diet Pain regimen as needed We will continue to trend liver enzymes Encourage ambulation, spirometry Time Spent With Patient Time: Total time managing care of this patient today ____ minutes. Quality Stroke Does the patient have a stroke diagnosis?: No VTE Prior VTE?: No VTE Risk Level:: Surgical - moderate VTE Device Contraindication: N/A - Device Ordered VTE Drug Contraindication: Treatment Not Indicated
[2025-05-05 08:13] VITALS: BP 137/62; PULSE 85; RESP 20; TEMP 36.1; O2SAT 97
--- NOTE | 2025-05-05 08:18 | HO.POSTANES ---
Post Anesthesia Evaluation Post Anesthesia Evaluation Date of Service: 05/05/25 Vital Signs: Vital Signs Temp Pulse Resp BP Pulse Ox O2 Del Method 05/05/25 08:13 96.9 F 85 20 137/62 97 Room Air 05/05/25 03:27 97.5 F 92 18 139/70 97 Room Air 05/04/25 23:30 98 Anesthesia: General Endotracheal-GETA Mental Status: Awake Pain Control: Satisfactory Nausea/Vomiting: None Hydration: Adequate Anesthesia-Related Issues: No Anes. Related Issues
[2025-05-05 09:48] LABS: Alanine Aminotransferase 127 U/L (0-31); Albumin Level 3.6 g/dL (3.5-5.0); Alkaline Phosphatase 237 U/L (39-117); Aspartate Amino Transferase 117 U/L (5-31); Blood Urea Nitrogen 6 mg/dL (9-16); Calcium 8.9 mg/dL (8.4-10.2); Creatinine Clr Calc Pharmacy 147.3; Estimated Glomerular Filt Rate > 60; Total Protein 6.7 g/dL (6.5-8.0)
[2025-05-05 09:55] LABS: Anion Gap 13 (12-20); Carbon Dioxide 27 mmol/L (22-29); Chloride 107 mmol/L (96-108); Potassium 3.9 mmol/L (3.3-5.1); Sodium 143 mmol/L (135-145)
[2025-05-05] MEDS: oxyCODONE HCl Immed Release 5 MG TABLET PO ×2 (10:27→21:59)
[2025-05-05] MEDS: Lactated Ringers 1,000 ML 100 ML IVCONT ×2 (12:14→22:02)
[2025-05-05 16:33] VITALS: BP 133/77; PULSE 79; RESP 12; TEMP 36.7; O2SAT 96
[2025-05-05 20:00] VITALS: BP 121/63; PULSE 85; RESP 18; TEMP 36.6; O2SAT 94
[2025-05-06 03:11] VITALS: BP 139/77; PULSE 77; RESP 16; TEMP 36.1; O2SAT 96
[2025-05-06 07:50] VITALS: BP 124/70; PULSE 75; RESP 14; TEMP 37; O2SAT 95
[2025-05-06] MEDS: oxyCODONE HCl Immed Release 5 MG TABLET PO (07:54)
--- NOTE | 2025-05-06 08:16 | P.PNGS_ITS ---
Subjective Subjective Date of Service: 05/06/25 Interval history: Doing well, continues to have some pain with ambulation. Mild pain at rest, well controlled with pain medications. Improvement in diet yesterday, continues to tolerate. Denies nausea or vomiting. Has been up and ambulating Physical Exam 2 Vital Signs: Vital Signs: Last Vital Signs Temp 98.6 F 05/06/25 07:50 Pulse 75 05/06/25 07:50 Resp 14 05/06/25 07:50 BP 124/70 05/06/25 07:50 Pulse Ox 95 05/06/25 07:50 O2 Del Method Room Air 05/06/25 07:50 O2 Flow Rate 2 05/04/25 19:54 BMI result Body Mass Index 47.6 Const: General: comfortable and no acute distress O rientation/consciousness: patient oriented x3 GI: Other: Incision sites clean dry and intact, no bleeding or discharge. No erythema or fluctuance Inspection: No distended Palpation (GI): Soft to palpation, Tenderness to palpation present (GI) (Incisional (epigastric, umbilical)) and no guarding Neuro: General: patient oriented x3 Objective Data Active Medications Clonidine HCl (Clonidine Hcl 0.1 Mg Tablet) 0.1 mg PO BEDTIME [facility]; Protocol Last Admin: 05/05/25 22:00 Dose: Not Given Documented By: OSCAR Non-Admin Reason: Patient Refused Escitalopram Oxalate (Escitalopram Oxalate 10 Mg Tablet) 10 mg PO DAILY [facility] Last Admin: 05/06/25 07:53 Dose: 10 mg Documented By: GRACIA Hydromorphone HCl (Hydromorphone Hcl 0.5 Mg/0.5 Ml Syringe) 0.5 mg IVPUSH Q3H PRN; Protocol PRN Reason: Pain, Severe (Pain Scale 7-10) Acetaminophen (Ofirmev) 1,000 mg in 100 mls @ 400 mls/hr IV Q6H PRN PRN Reason: Pain, Mild (Pain Scale 1-3) Last Infusion: 05/04/25 21:24 Dose: Infused Documented By: TUNG Piperacillin Sod/Tazobactam (Sod 3.375 gm/ Sodium Chloride) 50 mls @ 100 mls/hr IV Q6H [facility] Last Infusion: 05/06/25 06:04 Dose: Infused Documented By: OSCAR Lactated Ringer's (Lr) 1,000 mls @ 100 mls/hr IVCONT .Q10H [facility] Last Infusion: 05/06/25 07:56 Dose: Infused Documented By: GRACIA Loratadine (Loratadine 10 Mg Tablet) 10 mg PO DAILY PRN PRN Reason: allergy symptoms Metformin HCl (Metformin Hcl Er 500 Mg Tab.Er.24h) 1,000 mg PO BID [facility] Last Admin: 05/06/25 07:54 Dose: 1,000 mg Documented By: GRACIA Naloxone HCl (Naloxone Hcl 0.4 Mg/Ml Vial) 0.04 mg IVPUSH Q5M PRN PRN Reason: Excessive sedation or RR < 8 Ondansetron HCl (Ondansetron Hcl 4 Mg/2 Ml Vial) 4 mg IVPUSH QID PRN PRN Reason: Nausea Oxycodone HCl (Oxycodone Hcl Immed Release 5 Mg Tablet) 5 mg PO Q6H PRN PRN Reason: Pain, Moderate(Pain Scale 4-6) Last Admin: 05/06/25 07:54 Dose: 5 mg Documented By: GRACIA Sodium Chloride (0.9 % Sodium Chloride Flush 3 Ml Syringe) 3 ml IVFLUSH QSHIFT [facility] Last Admin: 05/06/25 00:02 Dose: Not Given Documented By: OSCAR Non-Admin Reason: IV Running Zolpidem Tartrate (Zolpidem Tartrate 5 Mg Tablet) 5 mg PO BEDTIME PRN PRN Reason: Insomnia Last Admin: 05/05/25 00:39 Dose: 5 mg Documented By: ASAV Labs 05/04/25 08:55 05/05/25 08:30 Labs: Laboratory Results - last 24 hr 05/05/25 08:30 Anion Gap 13 Estim Creat Clear Calc 147.3 Estimated GFR > 60 Random Glucose 109 Calcium 8.9 Total Bilirubin 1.1 H AST 117 H ALT 127 H Alkaline Phosphatase 237 H Total Protein 6.7 Albumin 3.6 Procedures Date of Service Date of Service: 05/06/25 Progress Note: A&P Assessment and plan (1) Acute cholecystitis: Status: Acute (2) Elevated LFTs: Status: Acute Plan 44 year old female admitted for acute cholecystitis. Now POD 2 s/p laparoscopic cholecystectomy. Doing well today, pain improving, well controlled with oral medications. Tolerating regular diet. Denies nausea, vomiting. She has been ambulating throughout the floor without issues. Liver enzymes slowly trending down. Abdomen is soft and benign, appropriately tender at the incision sites. Incision sites are clean dry and intact, no bleeding or discharge, no other findings suggestive of infection. She feels ready to go home. Reinforced return precautions, we will send for pain medications and stool softener. She will follow up in the office in 1-2 weeks. We will discharge today. Time Spent With Patient Time: Total time managing care of this patient today ____ minutes. Quality Stroke Does the patient have a stroke diagnosis?: No VTE Prior VTE?: No VTE Risk Level:: Surgical - moderate VTE Device Contraindication: N/A - Device Ordered VTE Drug Contraindication: Treatment Not Indicated
--- NOTE | 2025-05-06 08:20 | P.DS_ITS ---
DS: Providers Provider Date of Service: 05/06/25 Date of admission: 05/01/25 17:39 Date of discharge: 05/06/25 Primary care physician: Dilan Aldridge MD Admitting clinician: Gigi Lopez Attending physician on admission: Gigi Lopez Attending physician on discharge: Gigi Lopez DS: Diagnosis Discharge Diagnosis (1) Acute cholecystitis: Status: Acute (2) Elevated LFTs: Status: Acute DS: Summary Hospital Course Hospital Course: Admission HPI: 44 year old female with a history of PCOS, diabetes, anxiety/depression, ARTEAGA, obesity who presented to the ED for abdominal pain, nausea and vomiting since last Friday. She states that this happened immediately following a meal. She developed intense out right upper quadrant pain following this meal. Initially thought she had food poisoning and tried to manage at home. Pain was starting to resolve., the next day she tried to have a small bite of steak and cheese and felt this discomfort returning. She thinks that because it was a small amount of food the pain was not so bad. The next morning she tried to have a bowl of cereal and states her pain returned with increased intensity and returned to nausea and vomiting so she decided to be seen at the emergency department. Workup in the ED included abdominal ultrasound, showing normal common bile duct, cholelithiasis and sludge within the gallbladder. The gallbladder was distended without wall thickening or pericholecystic fluid. Positive sonographic Friend's. There was no leukocytosis on labs, there was increased total bili, 2.2. Additionally elevated LFTs. She was started on IV fluids, Zosyn. Currently she is not in any pain. Denies nausea or vomiting. States she only gets these symptoms when eating. Denies fevers or chills.. Surgical history significant for , 18 years ago. Denies other abdominal surgeries. Hospital course: Patient was admitted for acute cholecystitis, we will start her on IV fluids, IV Zosyn. She had MRCP due to elevated liver enzymes to rule out a common bile duct stone. MRCP showed no common bile duct stones, findings suggestive of calculous cholecystitis. Her liver enzymes were trending down on admission day 2., she was able to tolerate some light clear liquid diet. Plan for cholecystectomy on admission day 3. Patient had laparoscopic cholecystectomy on 05/[address] Mazzucco, tolerated this well and was transferred back to the [facility] floor for further evaluation and management. On POD 1 patient was overall doing well, struggling some pain control because she did not want to use narcotics because she was concerned that she may become constipated. She had been up and ambulating and had not tried much diet yet. Overall she looks well, abdomen was soft and benign aside from some incision site tenderness. Liver enzymes continued to come down slowly. POD 2, patient continues to have some pain with ambulation pain is well controlled at rest and with oral medications. Her diet is improving, tolerating regular diet. No nausea or vomiting. [place] ready to go home. Liver enzymes are slowly trending down. At the time of discharge patient was in stable condition, abdominal exam was soft and benign. Incision sites were clean dry and intact Time Attestation Discharge Coordination Time (in mins): 30 Quality: Safe Use of Opioids Does Pt have an Active Cancer Diagnosis on the Problem List?: No Quality: Stroke Does the patient have a stroke diagnosis?: No Physical Exam Vital Signs: Vital Signs: Last Vital Signs Temp 98.6 F 05/06/25 07:50 Pulse 75 05/06/25 07:50 Resp 14 05/06/25 07:50 BP 124/70 05/06/25 07:50 Pulse Ox 95 05/06/25 07:50 O2 Del Method Room Air 05/06/25 07:50 O2 Flow Rate 2 05/04/25 19:54 BMI result Body Mass Index 47.6 Const: General: comfortable and no acute distress Orientation/consciousness: patient oriented x3 GI: Other: Incision sites clean dry and intact, no bleeding or discharge. No erythema or fluctuance Inspection: No distended Palpation (GI): Soft to palpation, Tenderness to palpation present (GI) (Incisional (epigastric, umbilical)) and no guarding Neuro: General: patient oriented x3 DS: Data Data Completed and Pending Pending studies at discharge: Pending at discharge 05/04/25 13:28 Surgical [PTH] Routine Labs on day of discharge: Laboratory Results - last 24 hr 05/05/25 08:30 Sodium 143 Potassium 3.9 Chloride 107 Carbon Dioxide 27 Anion Gap 13 BUN 6 L Creatinine 0.70 Estim Creat Clear Calc 147.3 Estimated GFR > 60 Random Glucose 109 Calcium 8.9 Total Bilirubin 1.1 H AST 117 H ALT 127 H Alkaline Phosphatase 237 H Total Protein 6.7 Albumin 3.6 Preliminary micro results at discharge 05/01/25 18:00 Blood Culture - Preliminary Blood - Venous No growth after 48 hours. 05/01/25 18:00 Blood Culture - Preliminary Blood - Venous No growth after 48 hours. Discharge Plan Discharge Anticipated Discharge Date/Time: 05/06/25 08:24 Patient Disposition: Home, Self-Care Discharge Diagnosis: S/P laparoscopic cholecystectomy Referrals: Dilan Aldridge MD [Primary Care Provider, Internal Medicine] - 1 Week Gigi Lopez MD [Physician, General Surgery] - 1 Week Discharge Medications: New docusate sodium [Colace] 100 mg capsule 100 mg PO BID Qty: 30 0RF oxycodone 5 mg tablet 5 mg PO Q6H PRN (Reason: pain) Qty: 24 0RF Rx Instructions: Partial Fill upon patient request. Continued cetirizine 10 mg tablet 10 mg PO DAILY PRN (Reason: allergy symptoms) 90 Days Qty: 90 1RF clonidine HCl 0.1 mg tablet 0.1 mg PO BEDTIME magnesium glycinate 100 mg magnesium capsule 300 mg PO BEDTIME PRN (Reason: Sleep) cholecalciferol (vitamin D3) 25 mcg (1,000 unit) capsule 25 mcg PO DAILY Qty: 30 2RF metformin 500 mg tablet extended release 24 hr 1,000 mg PO BID Qty: 360 1RF ibuprofen 800 mg tablet 800 mg PO TID PRN (Reason: for headache) Qty: 270 1RF escitalopram oxalate 10 mg tablet 10 mg PO DAILY 90 Days Qty: 90 1RF Discharge Orders: Discharge Order (Routine); Ordered 05/06/25 Ordered By: Biran Llamas Diet: Low Fat Activity on Discharge: No heavy lifting Stand Alone Forms: Patient Portal Discharge page, Work/School Release Print Language: Zambian Activity Restrictions/Additional Instructions: If your incision site is sore, you may apply ice to the area for short periods of time (no more than 20 minutes at a time, followed by 20 minutes off). You were prescribed oxycodone to assist with pain management as needed. You can additionally use OTC ibuprofen or acetaminophen as needed for pain. You can remove the dressings at home, they do not need to be redressed. Steri strips can remain in place and will likely fall on their own or in the shower. No heavy lifting >20 pounds No strenuous activity. Do not use creams, lotion, ointment on the incision sites You will follow up with Dr. Lopez in the office in 1 week, you can call the office to schedule the appointment ) Please reach out to the office or be seen at the emergency department if you develop: -Fever >101.5 -Increasing pain or swelling of the area -Increased bleeding from the incision site or the incision begins to separate -If you are concerned for incision site infection such as redness, warmth, discharge. Some yellow/pink tinged discharge is normal -You develop nausea or vomiting Care Plan Goals: return to baseline Health Concerns: post op pain elevated LFT Plan of Treatment: follow up in the office with Dr Lopez Assessment: doing well Discharge Date/Time: 05/06/25 09:47
--- NOTE | 2025-05-06 08:43 | MHC.CM.PN ---
Patient is discharged to home self care. She has arranged for transportation home.
[2025-05-06 09:10] VITALS: BP 139/81; PULSE 82; RESP 18; TEMP 36.1; O2SAT 96
== END 2025-05-06 09:47 | disposition home or self-care (01) | DRG 418 ==
LOC: HO.ED 17:38 → HO.EDOVER 17:49 → HO.S3 05-02 19:35
PROVIDERS: Registered Nurse Emergency; Admitting Provider Surgery; Emergency Provider Student in an Organized Health Care Education/Training Program; PCP Internal Medicine; Visit Provider Surgery
PROC: 0FT44ZZ Resection of Gallbladder, Percutaneous Endoscopic Approach (ICD-10-PCS; CPT 47562; principal; 2025-05-04 14:30)
DX: K80.00 Calculus of gallbladder with acute cholecystitis without obstruction (principal); Z68.42 Body mass index [BMI] 45.0-49.9, adult; R94.5 Abnormal results of liver function studies; E28.2 Polycystic ovarian syndrome; E11.9 Type 2 diabetes mellitus without complications; E66.01 Morbid (severe) obesity due to excess calories; Z79.899 Other long term (current) drug therapy
CPT/HCPCS: 36415; 74181; 76705; 80053; 81001; 83690; 84702; 85025; 85027; 87040; 88304; 99285; J0131; J0330; J1100; J1885; J2003; J2250; J2405; J2543; J2704; J3010; J7120

== ENCOUNTER → 2025-05-01 14:10 | Outpatient (BNV) | payer MEDICARE, MEDICAID, SELFPAY | PROVIDERS: PCP Internal Medicine; Visit Provider Radiology Diagnostic Radiology | DX: K81.0 Acute cholecystitis (principal) | CPT/HCPCS: 76705 ==

== ENCOUNTER 2025-05-01 17:39 | Outpatient (BNV) | payer MEDICARE, MEDICAID, SELFPAY | END 2025-05-02 12:19 | PROVIDERS: Admitting Provider Surgery; Emergency Provider Student in an Organized Health Care Education/Training Program; PCP Internal Medicine; Visit Provider Radiology Diagnostic Radiology | DX: K81.0 Acute cholecystitis (principal); K76.0 Fatty (change of) liver, not elsewhere classified; R16.2 Hepatomegaly with splenomegaly, not elsewhere classified | CPT/HCPCS: 74181 ==

== ENCOUNTER → 2025-05-01 17:39 | Outpatient (BNV) | payer MEDICARE, MEDICAID, SELFPAY | PROVIDERS: Admitting Provider Surgery; Emergency Provider Student in an Organized Health Care Education/Training Program; PCP Internal Medicine | DX: K81.0 Acute cholecystitis (principal); R79.89 Other specified abnormal findings of blood chemistry | CPT/HCPCS: 47562; 99024; 99222; 99232 ==

== ENCOUNTER 2025-05-11 09:14 | Outpatient (REF) | payer MEDICARE, MEDICAID, SELFPAY ==
--- NOTE | ~2025-05-11 | US_ITS ---
CLINICAL HISTORY: R10.2 - Pelvic and perineal pain Transabdominal and transvaginal pelvic ultrasound Bilateral ovarian Doppler studies Comparison: 03/08/2024 Findings: Uterus 8.2 x 3.8 x 4.2 cm. Endometrium not measured. Prominent uterine vascularity around cervix. IUD in normal position. No significant free fluid. Right ovary 3.8 x 3.3 x 3.3 cm. 3.0 x 2.8 cm complex cyst. Septations and internal echoes noted. Left ovary was not visualized. Impression: 3.0 x 2.8 cm complex right ovarian cyst Recommend follow-up in 1-2 months This document has been electronically signed by: David Cuellar MD on 05/11/2025 22:17:04
== END 2025-05-11 09:15 | disposition home or self-care (01) ==
LOC: HO.US 09:14
PROVIDERS: PCP Internal Medicine; Visit Provider Obstetrics & Gynecology
DX: R10.20 Pelvic and perineal pain unspecified side (principal); Z90.49 Acquired absence of other specified parts of digestive tract; N83.209 Unspecified ovarian cyst, unspecified side; R31.29 Other microscopic hematuria
CPT/HCPCS: 76830; 76856; 81002; 99212

== ENCOUNTER → 2025-05-11 09:20 | Outpatient (BNV) | payer MEDICARE, MEDICAID, SELFPAY | PROVIDERS: PCP Internal Medicine; Visit Provider Radiology Diagnostic Radiology | DX: N83.291 Other ovarian cyst, right side (principal); N85.7 Hematometra | CPT/HCPCS: 76830; 76856 ==

== ENCOUNTER 2025-05-11 11:42 | Outpatient (AMB) | payer MEDICARE, MEDICAID, SELFPAY ==
--- NOTE | 2025-05-11 12:04 | MHC.OFFVIS ---
Intake Visit Reasons: ultrasound results Allergies No Known Allergies Allergy (Verified 05/01/25 14:12) HPI Comments Details: Presenting complaining of pelvic pain or few days' duration no fever or chills no vaginal discharge or bleeding or any other concerns. Pelvic ultrasound done this a.m., reports not available, unofficial reading showed the right hemorrhagic cyst measuring 3 x 2.8 x 2.3 cm with IUD in appropriate position. [facility] Medical History JUNAID III (cervical intraepithelial neoplasia grade III) with severe dysplasia History of COVID-19 IAN (obstructive sleep apnea) Morbid obesity with BMI of 50.0-59.9, adult Allergic rhinitis Migraine Morbid obesity with BMI of 45.0-49.9, adult Depression Anxiety Insomnia Elevated LFTs PCOS (polycystic ovarian syndrome) Impaired fasting glucose Surgical History Status post laparoscopic cholecystectomy (05/04/25) History of esophagogastroduodenoscopy (EGD) Hx of colonoscopy Previous section Family History Father No problems noted. Mother Diverticulitis Other Substance abuse Social History Household Members: None Housing: Apartment Are you a primary rn palliative care to a significant other at home: No Do you presently have visiting nurse or other home services: No Alcohol intake: former Patient Tobacco Use Status: Never used Tobacco Tobacco use type: Cigarette e-Cigarette/Vaping Use: Never Used Second Hand Smoke Exposure: No Advance Directives Date on File: 04/14/20 service: No Current occupational status: employed Cognitive needs: No Hearing needs: No Vision needs: No Female Reproductive History Menstrual Age of Menarche: 12 Review of Systems Const All systems reviewed & are unremarkable except as noted in HPI and below Physical Exam General: Yes no CVA tenderness External Female Exam: normal external appearance and normal appearance of the urethra Speculum Exam - Vagina: normal appearance of the vagina, normal palpation, no lesions and no masses Speculum Exam - Cervix: normal appearance of the cervix, normal palpation, no lesions, no masses, nontender and Other cervical findings present (IUD string in place) Bimanual exam- vagina & uterus: normal bimanual exam, normal palpation, uterine size normal, normal palpation, uterine shape normal, No Cervical tenderness present and non-tender Bimanual Exam- Adnexa, other: normal adnexae Back/Spine/Pelvis Back: no CVA tenderness Assessment & Plan Assessment & Plan (1) Hemorrhagic ovarian cyst: Code(s): N83.209 - Unspecified ovarian cyst, unspecified side Category: Medical Plan: UPT done in the office was negative. Pelvic ultrasound done this a.m., report unavailable, unofficial reading showed the right hemorrhagic cyst , IUD in appropriate position. Will repeat ultrasound in three-months to confirm resolution of the hemorrhagic cyst. Instructions given to patient to call if symptoms persist or worsen, fever above 100.4 or nausea or vomiting. All questions answered, the patient verbalized understanding (2) Microscopic hematuria: Code(s): R31.29 - Other microscopic hematuria Category: Medical Plan: Urine dip showed microscopic hematuria, urine culture sent. Will repeat urine dip in 2 weeks. Discussed with the patient the possible causes of microscopic hematuria including but not limited to: interstitial cystitis, polyps, stones, masses, urethral inflammatory processes and others. If Urine Culture is negative and repeat urine dip in 2 weeks shows persistent microscopic hematuria, will proceed with CT abdomen/pelvis and urology referral. Instructions given the patient to schedule a 2 week urine dip follow-up appointment. All questions answered and the patient verbalized understanding. Orders: Orders US pelvic and transvaginal 3 Months N83.299 - Other ovarian cyst, unspecified side Coding Level of Care Code Est Pt Level 3 (30045) Diagnoses Hemorrhagic ovarian cyst N83.209 Microscopic hematuria R31.29
== END 2025-05-11 13:12 | disposition home or self-care (01) ==
LOC: HO.HWS 11:43
PROVIDERS: PCP Internal Medicine; Visit Provider Obstetrics & Gynecology
DX: N83.209 Unspecified ovarian cyst, unspecified side (principal); R31.29 Other microscopic hematuria; R31.9 Hematuria, unspecified
CPT/HCPCS: 99213

== ENCOUNTER 2025-05-11 13:00 | Outpatient (AMB) | payer MEDICARE, MEDICAID, SELFPAY ==
--- NOTE | 2025-05-11 13:01 | MHC.OFFVIS ---
Vital Signs 05/11/25 13:12 Height 5 ft 6 in Weight 296 lb BMI 47.8 BP 148/77 H Blood Pressure Location Lt brachial Position Sitting Pulse 73 Intake Visit Reasons: s/p clau Intake Note: Patient is seen in office for post op assessment post cholecystectomy. 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 Is having some gynecologic issues, saw her provider today after some pelvic pain, had transvaginal ultrasound showing blood clot in the uterus. Otherwise she reports minimal pain at home. Appetite is still low but tolerating diet without nausea or vomiting. States she has some constipation, but went to the bathroom today, is taking stool softener. [facility] Medical History JUNAID III (cervical intraepithelial neoplasia grade III) with severe dysplasia History of COVID-19 IAN (obstructive sleep apnea) Morbid obesity with BMI of 50.0-59.9, adult Allergic rhinitis Migraine Morbid obesity with BMI of 45.0-49.9, adult Depression Anxiety Insomnia Elevated LFTs PCOS (polycystic ovarian syndrome) Impaired fasting glucose Surgical History (Updated 05/11/25 @ 13:25 by Brian Llamas PA-C) Status post laparoscopic cholecystectomy (05/04/25) History of esophagogastroduodenoscopy (EGD) Hx of colonoscopy Previous section Family History Father No problems noted. Mother Diverticulitis Other Substance abuse Social History Household Members: None Housing: Apartment Are you a primary acute care assistant to a significant other at home: No Do you presently have visiting nurse or other home services: No Alcohol intake: former Patient Tobacco Use Status: Never used Tobacco Tobacco use type: Cigarette e-Cigarette/Vaping Use: Never Used Second Hand Smoke Exposure: No Advance Directives Date on File: 04/14/20 service: No Current occupational status: employed Cognitive needs: No Hearing needs: No Vision needs: No Female Reproductive History Menstrual Age of Menarche: 12 Physical Exam Vital Signs: Last Vital Signs Pulse 73 05/11/25 13:12 BP 148/77 H 05/11/25 13:12 BMI result Body Mass Index 47.8 Const General: comfortable and no acute distress Orientation/consciousness: patient oriented x3 GI Other: Incision sites clean dry intact, moderate ecchymosis surrounding the incision sites. There are small blisters on the superior right upper quadrant trocar site that appeared to be from a reaction to the tape or Steri-Strips. I removed them in office today there was no fluctuance, drainage. No surrounding cellulitis. Neuro General: patient oriented x3 Assessment & Plan Assessment & Plan (1) Status post laparoscopic cholecystectomy: Onset Date: 05/04/25 Comment: Laparoscopic cholecystectomy 05/04/2025. Gigi Trejo Code(s): Z90.49 - Acquired absence of other specified parts of digestive tract Category: Medical Plan 45-year-old female s/p laparoscopic cholecystectomy on 05/04/[address] Lopez returning to the office for follow up. 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 States she was having pelvic pain, had transvaginal ultrasound showing blood clot in the uterus. Likely unrelated to surgery, she states that this is what her clinical business manager told her but we will continue to follow up at her next appointment. Otherwise doing well, does have a decreased appetite but is slowly improving. States bowel movements are irregular, but did pass a bowel movement this morning, is taking Colace at home, I also recommended increasing fiber and water intake to regulate her bowel function. On exam her abdomen is soft and benign, incision sites appear to be healing well, there was some local skin breakdown and blisters from the taper Steri-Strips. There were no cellulitic changes suggestive of infection. Patient returning back to work on the 18 of May.We will continue with activity restrictions until that date. Then okay to resume activity as tolerated. We will see her back in 3 weeks to follow up with clinical business manager findings, final postop visit. Coding Level of Care Code Global (08287) Diagnoses Status post laparoscopic cholecystectomy Z90.49
[2025-05-11 13:12] VITALS: BP 148/77; PULSE 73; BMI 47.8
== END 2025-05-11 13:17 | disposition home or self-care (01) ==
LOC: HO.HGS 13:01
PROVIDERS: PCP Internal Medicine
DX: Z90.49 Acquired absence of other specified parts of digestive tract (principal)
CPT/HCPCS: 99024

== ENCOUNTER 2025-05-11 13:31 | Outpatient (REF) | payer MEDICARE, MEDICAID, SELFPAY | END 2025-05-11 13:32 | disposition home or self-care (01) | LOC: HO.LAB 13:31 | PROVIDERS: Visit Provider Obstetrics & Gynecology | DX: Z13.89 Encounter for screening for other disorder (principal) | CPT/HCPCS: 87086; 87088; 87186 ==

== ENCOUNTER 2025-05-24 13:23 | Outpatient (REF) | payer MEDICARE, MEDICAID, SELFPAY | END 2025-05-24 13:24 | disposition home or self-care (01) | LOC: HO.LNP 13:23 | PROVIDERS: PCP Internal Medicine; Visit Provider Obstetrics & Gynecology | DX: Z01.419 Encounter for gynecological examination (general) (routine) without abnormal findings (principal); Z30.431 Encounter for routine checking of intrauterine contraceptive device; R31.29 Other microscopic hematuria; Z11.51 Encounter for screening for human papillomavirus (HPV) | CPT/HCPCS: 87086; 87626; 88175; 99212; G0101; Q0091 ==

== ENCOUNTER 2025-05-24 13:23 | Outpatient (AMB) | payer MEDICARE, MEDICAID, SELFPAY ==
--- NOTE | 2025-05-24 14:22 | MHC.OFFVIS ---
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 No complaints. 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 Mother Diverticulitis Other Substance abuse Social History Household Members: None Housing: Apartment Are you a primary acute care nursing assistant to a significant other at home: No Do you presently have visiting nurse or other home services: No Alcohol intake: former Patient Tobacco Use Status: Never used Tobacco Tobacco use type: Cigarette e-Cigarette/Vaping Use: Never Used Second Hand Smoke Exposure: No Advance Directives Date on File: 04/14/20 service: No Current occupational status: employed Cognitive needs: No Hearing needs: No Vision needs: No Female Reproductive History Menstrual Age of Menarche: 12 Date of last pap smear: 08/06/22 History of abnormal pap smear: Yes (HPV +) Date of Mammogram: 09/11/23 Review of Systems Const All systems reviewed & are unremarkable except as noted in HPI and below Card Reports as per HPI Resp Reports as per HPI GI Reports as per HPI and Reports no additional complaints Reports as per HPI Physical Exam Vital Signs: BMI result Body Mass Index 46.8 Const General: cooperative, healthy appearing and comfortable Chest Chest palpation & inspection: normal inspection of the chest and normal palpation of entire chest wall Breast/axilla inspection: normal inspection of the breasts and normal inspection of the axillae Breast/axilla palpation: normal palpation of the breasts, normal palpation of the axillae and no axillary lymphadenopathy Resp Effort & Inspection: normal respiratory effort Auscultation: clear to auscultation bilaterally Percussion: percussion normal Cardio Palpation: normal PMI Rate: regular rate Rhythm: regular rhythm Heart sounds: no murmurs and no rubs Peripheral pulses: Peripheral pulses 2+ throughout GI Inspection: Yes normal to inspection Palpation (GI): Soft to palpation, nontender, no guarding, not rigid and No hepatosplenomegaly present Percussion: Yes normal to percussion Auscultation: normal bowel sounds Rectal Exam - Female: deferred General: Yes bladder normal to palpation External Female Exam: No lesion Speculum Exam - Vagina: normal appearance of the vagina, normal palpation, normal vaginal discharge and not erythematous Speculum Exam - Cervix: normal appearance of the cervix and normal palpation Bimanual exam- vagina & uterus: normal bimanual exam, normal palpation, uterine size normal, bladder normal to palpation, consistency normal and normal palpation Bimanual Exam- Adnexa, other: normal adnexae, no masses and no tenderness Assessment & Plan Assessment & Plan (1) Well woman exam: Code(s): Z01.419 - Encounter for gynecological examination (general) (routine) without abnormal findings Category: Medical Plan: Cotesting done. Mammogram ordered. Counseled the patient about the recommended dietary allowance of 1000 mg of Calcium & 600 IU of vitamin D. The patient was instructed to perform monthly self-breast exams and to schedule an annual exam in a year; All questions answered and the patient verbalized understanding. Instructed the patient to schedule annual exam in a year (2) IUD check up: Comment: Lizbet since 09/30 Code(s): Z30.431 - Encounter for routine checking of intrauterine contraceptive device Category: Medical Plan: Recommended the replacement of the IUD to annual IUD since the patient is using it for AUB and it has been more than 5 years since IUD insertion, instructions given the patient to schedule an appointment ABI for IUD removal/reinsertion (3) Microscopic hematuria: Code(s): R31.29 - Other microscopic hematuria Category: Medical Plan: Repeat urine did show prominent persistent microscopic hematuria will repeat urine culture to make sure urinary infection has cleared and repeat urine dip in 2 weeks if persistent microscopic hematuria will proceed with CT scan of abdomen and pelvis and refer to urology Orders: Orders MM tomosynthesis screening BI Today Z12.31 - Encounter for screening mammogram for malignant neoplasm of breast Pap Smear Today Z01.419 - Encounter for gynecological examination (general) (routine) without abnormal findings HPV High risk Today Z01.419 - Encounter for gynecological examination (general) (routine) without abnormal findings Urine Culture Today R31.29 - Other microscopic hematuria Coding Level of Care Code Est Pt Level 3 (08896) Est Pt Prev Care 40-64y(40185) Diagnoses Well woman exam Z01.419 IUD check up Z30.431 Microscopic hematuria R31.29
[2025-05-24 14:25] VITALS: BP 126/82; BMI 46.8
== END 2025-05-25 14:43 | disposition home or self-care (01) ==
LOC: HO.HWS 13:23
PROVIDERS: PCP Internal Medicine; Visit Provider Obstetrics & Gynecology
DX: Z01.419 Encounter for gynecological examination (general) (routine) without abnormal findings (principal); Z30.431 Encounter for routine checking of intrauterine contraceptive device; R31.29 Other microscopic hematuria
CPT/HCPCS: 99213; G0101; Q0091

== ENCOUNTER 2025-05-25 12:54 | Outpatient (AMB) | payer MEDICARE, MEDICAID, SELFPAY ==
[2025-05-25 13:09] VITALS: BP 118/86; PULSE 79; O2SAT 98; BMI 47.3
--- NOTE | 2025-05-25 13:09 | A.OFFPC_ITS ---
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 Accompanied by: Self / Same As Patient Allergies No Known Allergies Allergy (Verified 05/25/25 13:53) Medication List - Last Reconciled 05/25/25 by Dilan Aldridge MD cetirizine 10 mg PO DAILY PRN 90 days cholecalciferol (vitamin D3) 25 mcg PO DAILY clonidine HCl 0.1 mg PO BEDTIME docusate sodium (Colace) 100 mg PO BID escitalopram oxalate 10 mg PO DAILY 90 days ibuprofen 800 mg PO TID PRN magnesium glycinate 300 mg PO BEDTIME PRN metformin ER 1,000 mg (2 x 500 mg) PO BID oxycodone 5 mg PO Q6H PRN Tobacco use date assessed: 05/25/25 Dental Screening Dental Screen Date: 05/25/25 Did you have a dental visit in the last 12 months?: Yes Did you have a dental problem in the last 6 months where you did not have access to dental care?: No Was dental information given to patient?: Patient has dentist HPI 4 mo follow up HPI Details Patient comes in today for her follow-up visit States that she feels okay She was admitted to [facility] about 3 weeks ago underwent laparoscopic cholecystectomy for acute cholecystitis after she presented to the hospital back then with persistent right upper quadrant abdominal pain, nausea and vomiting for a few days Workups done in the ER revealed cholecystitis and she was thus admitted for further management and consideration for cholecystectomy Patient states that since her gallbladder surgery a few weeks ago, she feels okay She denies any dizziness; still has on and off headaches but states that these have been mostly stable lately Denies any chest pains, no increased shortness of breath She has not had any further nausea or vomiting since laparoscopic surgery about 3 weeks ago although she is currently experiencing on and off right lower abdominal pain due to a hemorrhagic right ovarian cyst, which is being managed by Dr. Groves She also just had her yearly pap smear done by Dr. Groves yesterday She had a pelvic ultrasound done a couple of weeks ago and is scheduled for a follow-up ultrasound in July 2025 for monitoring and surveillance of her hemorrhagic right ovarian cyst No change in bowel habits noted although she has noticed some loose stools every now and then, especially when she eats certain foods She has no follow-up labs done recently except for the ones she did back at the hospital when she was admitted for cholecystitis about 3 weeks ago [facility] Medical History JUNAID III (cervical intraepithelial neoplasia grade III) with severe dysplasia History of COVID-19 IAN (obstructive sleep apnea) Morbid obesity with BMI of 50.0-59.9, adult Allergic rhinitis Migraine Morbid obesity with BMI of 45.0-49.9, adult Depression Anxiety Insomnia Elevated LFTs PCOS (polycystic ovarian syndrome) Impaired fasting glucose Surgical History Status post laparoscopic cholecystectomy (05/04/25) History of esophagogastroduodenoscopy (EGD) Hx of colonoscopy Previous section Family History Father No problems noted. Mother Diverticulitis Other Substance abuse Social History Household Members: None Housing: Apartment Are you a primary transitions rn care coordinator to a significant other at home: No Do you presently have visiting nurse or other home services: No Alcohol intake: former Patient Tobacco Use Status: Never used Tobacco Tobacco use type: Cigarette e-Cigarette/Vaping Use: Never Used Second Hand Smoke Exposure: No Advance Directives Date on File: 04/14/20 service: No Current occupational status: employed Cognitive needs: No Hearing needs: No Vision needs: No Female Reproductive History Menstrual Age of Menarche: 12 Questionnaire PHQ-9 Over the last 2 weeks, how often have you been bothered by any of the following problems? 1. Little interest or pleasure in doing things: several days 2. Feeling down, depressed, or hopeless: several days 3. Trouble falling or staying asleep, or sleeping too much: nearly every day 4. Feeling tired or having little energy: nearly every day 5. Poor appetite or overeating: several days 6. Feeling bad about yourself - or that you are a failure or have let yourself or your family down: several days 7. Trouble concentrating on things, such as reading the newspaper or watching television: several days 8. Moving or speaking so slowly that other people could have noticed. Or the opposite - being so fidgety or restless that you have been moving around a lot more than usual: several days 9. Thoughts that you would be better off or of hurting yourself in some way: several days Total score: 13 Depression Screening Interpretation: Positive Depression Screening Follow-up: Existing condition and In treatment Depression Screening Done: Yes 11547 - PHQ-9 Billing: Yes Source: Developed by Drs. Nathan Peck, Janie Apodaca, Clive Powers and colleagues, with an educational odette from [employer]. Thrive Questionnaire Date Thrive assessed: 05/25/25 I am a: Patient What is your living situation today?: I have a steady place to live Within the past 12 months, did the food you bought not last and you didn't have the money to get more?: Never true Within the past 12 months, did you worry whether your food would run out before you got money to buy more?: Never true Do you have trouble paying for medicines?: No Do you have trouble getting transportation to medical appointments?: No Do you have trouble paying your heating and electricity bill?: No Do you have trouble taking care of your child, family member or friend?: No Do you have trouble with day-to-day activities such as bathing, preparing meals, shopping, managing finances, etc.?: I choose not to answer this question Are you currently unemployed and looking for a job?: No Are you interested in more education?: No Please select the resources that you would like help with: None Currently or been in a relationship where the following occur: No concerns reported THRIVE Score: 0 AUDIT C Alcohol Use Questionnaire (AUDIT-C) 1. How often do you have a drink containing alcohol?: Never 3. How often do you have six or more drinks on one occasion?: Never Total Score: 0 Score Reviewed/Action Taken: Yes MARCK-7 AMB Questionnaire MARCK-7 Date MARCK - 7 assessed: 05/25/25 Feeling nervous, anxious, or on edge: 1 = Several days Not being able to stop or control worryin = Not at all Worrying too much about different things: 2 = More than half the days Trouble relaxin = More than half the days Being so restless that it is hard to sit still: 2 = More than half the days Becoming easily annoyed or irritable: 2 = More than half the days Feeling afraid as if something awful might happen: 0 = Not at all Total MARCK-7 score (0-4 normal; 5-9 mild; 10-14 moderate; 15-21 severe): 9 Source: Developed by Drs. Nathan Peck, Janie Apodaca, Clive Powers and colleagues, with an educational odette from [employer]. MARCK-7 Assessment Billing MARCK-7 Assessment Tool: MARCK-7 Assessment 15474 Review of Systems Const Denies chills, Denies fatigue, Denies fever(s) and Reports headache(s) (on and off) ENT Denies dysphagia, Denies dizziness, Denies otalgia, Reports headache(s) (on and off), Denies neck pain, Denies odynophagia and Denies sore throat Card Denies chest pain, Denies rapid heart rate, Denies irregular heart rhythm, Denies palpitations and Denies dyspnea Resp Denies chest congestion, Denies cough and Denies dyspnea GI Reports abdominal pain (over the right lower abdominal area due to her hemorrhagic ovarian cyst), Denies constipation, Denies dysphagia, Denies heartburn, Denies diarrhea, Reports loose stools (at times since her gallbladder surgery a few weeks ago), Denies nausea, Denies odynophagia and Denies vomiting Denies hematuria, Denies difficulty voiding, Denies dysuria, Denies urinary incontinence and Denies urinary urgency Musc Denies back pain, Denies arthralgias and Denies neck pain Skin/Breast Denies rash Neuro Denies dizziness, Reports headache(s) (on and off) and Denies paresthesias Psych Reports anxiety and Reports depression Endo Denies fatigue and Denies palpitations Physical exam (Primary Care) Vital Signs: Last Vital Signs Pulse 79 05/25/25 13:09 BP 118/86 05/25/25 13:09 Pulse Ox 98 05/25/25 13:09 Oxygen Delivery Method Room Air 05/25/25 13:09 BMI result Body Mass Index 47.3 Tobacco/Smoking Status: Tobacco use Status Tobacco use date assessed 05/25/25 05/25/25 13:11 Patient Tobacco Use Status Never used Tobacco 05/25/25 13:11 Tobacco use type Cigarette 05/25/25 13:11 e-Cigarette/Vaping Use Never Used 05/25/25 13:11 PHQ-9: PHQ-9 Score PHQ-9: Total score 13 05/25/25 15:12 Depression Screening Interpretation: Positive Depression Screening Follow-up: Existing condition and In treatment Thrive Assessment: Date of Thrive Assessment Date Thrive assessed 05/25/25 05/25/25 13:11 Currently or been in a relationship where the following occur: No concerns reported Const General: no acute distress and alert HENMT Ears: TM's normal bilaterally and EAC's normal Throat: Yes posterior oropharynx normal and Yes tonsils normal (no TP congestion) Neck Neck: Yes supple and No lymphadenopathy Thyroid: Thyroid normal Resp Auscultation: clear to auscultation bilaterally, no rales and no wheezes Cardio Rate: regular rate Rhythm: regular rhythm Heart sounds: no murmurs GI Other: (+) healed scars from her recent laparoscopic surgery Palpation (GI): Soft to palpation, Tenderness to palpation present (GI) (mild, over the right lower abdomen), no guarding, not rigid and No Rebound tenderness present Auscultation: normal bowel sounds General: Yes no CVA tenderness Back/Spine/Pelvis Back: no CVA tenderness Thoracic/Lumbar Spine: No lumbar spinal tenderness Skin Rashes: no rashes Extrem General: Yes no clubbing, cyanosis or edema Results Reviewed Results Reviewed: Laboratory Tests 05/04/25 05/05/25 08:55 08:30 WBC 10.9 H Hgb 13.9 Hct 41.5 Plt Count 244 Sodium 143 Potassium 3.9 Creatinine 0.70 Estimated GFR > 60 Random Glucose 109 Calcium 8.9 AST 117 H ALT 127 H Alkaline Phosphatase 237 H Albumin 3.6 Coding Level of Care Code Est Pt Level 4 (94710) Diagnoses Acute cholecystitis K81.0 Elevated LFTs R79.89 Migraine without status migrainosus, not intractable, unspecified migraine type G43.909 Migraine type: unspecified Status migrainosus presence: without status migrainosus Intractability: not intractable Impaired fasting glucose R73.01 Vitamin D deficiency E55.9 Allergic rhinitis, unspecified seasonality, unspecified trigger J30.9 Allergic rhinitis trigger: unspecified Allergic rhinitis seasonality: unspecified PCOS (polycystic ovarian syndrome) E28.2 Insomnia, unspecified type G47.00 Insomnia type: unspecified Anxiety F41.9 Depression, unspecified depression type F32.9 Depression Type: unspecified Morbid obesity with BMI of 45.0-49.9, adult E66.01; Z68.42 Additional Codes MARCK-7 Assessment Billing - MARCK-7 Assessment Tool: MARCK-7 Assessment 51137 ([id number]) PHQ-9 - 50819 - PHQ-9 Billing: Yes ([id number]) Assessment & Plan Assessment & Plan (1) Acute cholecystitis: Code(s): K81.0 - Acute cholecystitis Category: Medical Plan: RESOLVED - S/P laparoscopic cholecystectomy about 3 weeks ago on 05/04/2025 Follow up with surgery as scheduled - she has a follow up appt scheduled for sometime next week (2) Elevated LFTs: Code(s): R79.89 - Other specified abnormal findings of blood chemistry Category: Medical Plan: Her LFTs were still significantly elevated when they were last checked on 05/05/2025, a day after her laparoscopic surgery, although she's had issues with elevated LFTs as well in the past due to her weight (hepatosteatosis) Will send patient for some repeat labs ABI for follow up and to ensure resolution or improvement of her elevated LFTs (3) Migraine: Code(s): G43.909 - Migraine, unspecified, not intractable, without status migrainosus Category: Medical Qualifiers: Migraine type: unspecified Status migrainosus presence: without status migrainosus Intractability: not intractable Qualified Code(s): G43.909 - Migraine, unspecified, not intractable, without status migrainosus Plan: Reinforced avoidance of all potential migraine triggers Continue Ibuprofen 800 mg TID PRN for symptomatic relief She was taking Topiramate 25 mg Q HS for migraine headache prophylaxis in the past but appears to have stopped taking this some time ago (4) Impaired fasting glucose: Code(s): R73.01 - Impaired fasting glucose Category: Medical Plan: Her fasting glucose was at 126 mg/dl but her HgbA1c was normal at 5.7% when last checked in September 2024 Reinforced low calorie/low carb diet She takes Metformin ER 1000 mg BID but this is mostly for her PCOS rather than for her blood sugar (5) Vitamin D deficiency: Code(s): E55.9 - Vitamin D deficiency, unspecified Category: Medical Plan: Continue cholecalciferol 25 mcg QD (6) Allergic rhinitis: Code(s): J30.9 - Allergic rhinitis, unspecified Category: Medical Qualifiers: Allergic rhinitis trigger: unspecified Allergic rhinitis seasonality: unspecified Qualified Code(s): J30.9 - Allergic rhinitis, unspecified Plan: Continue Cetirizine 10 mg QD PRN (7) PCOS (polycystic ovarian syndrome): Code(s): E28.2 - Polycystic ovarian syndrome Category: Medical Plan: Continue Metformin ER 1000 mg BID She also currently has a hemorrhagic right ovarian cyst, which is being managed conservatively by Dr. Groves and she has a follow up US scheduled in July 2025 Follow up with OB-Senior Laboratory Technician as scheduled (8) Insomnia: Code(s): G47.00 - Insomnia, unspecified Category: Medical Qualifiers: Insomnia type: unspecified Qualified Code(s): G47.00 - Insomnia, unspecified Plan: Sleep hygiene reinforced Continue Trazodone 100 mg Q HS PRN (9) Anxiety: Code(s): F41.9 - Anxiety disorder, unspecified Category: Medical Plan: Patient reports that she does not eat regularly due to her depression and anxiety Continue Escitalopram 10 mg QD and Clonidine 0.1 mg Q HS Follow up with psychiatry as scheduled (10) Depression: Code(s): F32.9 - Major depressive disorder, single episode, unspecified Category: Medical Qualifiers: Depression Type: unspecified Qualified Code(s): F32.9 - Major depressive disorder, single episode, unspecified Plan: Continue Escitalopram 10 mg QD Follow up with psychiatry as scheduled (11) Morbid obesity with BMI of 45.0-49.9, adult: Code(s): E66.01 - Morbid (severe) obesity due to excess calories; Z68.42 - Body mass index [BMI] 45.0-49.9, adult Category: Medical Plan: Reinforced diet/exercise as tolerated/lose weight Plan To return as scheduled in September 2025 for her annual physical examination We will also have patient get her yearly labs done just before she returns in September 2025 for her physical exam Orders: Orders Comprehensive Met. Panel 05/25/25 R79.89 - Other specified abnormal findings of blood chemistry Complete Blood Count Auto Diff 09/11/25 D64.9 - Anemia, unspecified, Z00.00 - Encounter for general adult medical examination without abnormal findings Comprehensive [place]. Panel Fast 09/11/25 E78.00 - Pure hypercholesterolemia, unspecified, Z00.00 - Encounter for general adult medical examination without abnormal findings TSH reflex Free T4 09/11/25 E78.00 - Pure hypercholesterolemia, unspecified, Z00.00 - Encounter for general adult medical examination without abnormal findings Lipid Panel 09/11/25 E78.00 - Pure hypercholesterolemia, unspecified, Z00.00 - Encounter for general adult medical examination without abnormal findings UA CC w/rflx Micro + Cult 09/11/25 R30.0 - Dysuria, Z00.00 - Encounter for general adult medical examination without abnormal findings Vitamin D 25-OH Total 09/11/25 E55.9 - Vitamin D deficiency, unspecified, Z00.00 - Encounter for general adult medical examination without abnormal findings Hemoglobin A1c 09/11/25 R73.01 - Impaired fasting glucose, Z00.00 - Encounter for general adult medical examination without abnormal findings
== END 2025-05-25 14:00 | disposition home or self-care (01) ==
LOC: HO.HMCH 12:55
PROVIDERS: PCP Internal Medicine; Visit Provider Internal Medicine
DX: K81.0 Acute cholecystitis (principal); R79.89 Other specified abnormal findings of blood chemistry; E66.01 Morbid (severe) obesity due to excess calories; Z68.42 Body mass index [BMI] 45.0-49.9, adult; G43.909 Migraine, unspecified, not intractable, without status migrainosus; R73.01 Impaired fasting glucose; E55.9 Vitamin D deficiency, unspecified; J30.9 Allergic rhinitis, unspecified; E28.2 Polycystic ovarian syndrome; G47.00 Insomnia, unspecified; F41.9 Anxiety disorder, unspecified; F32.9 Major depressive disorder, single episode, unspecified

== ENCOUNTER → 2025-05-25 12:54 | Outpatient (BNVA) | payer MEDICARE, MEDICAID, SELFPAY | PROVIDERS: PCP Internal Medicine; Visit Provider Internal Medicine | DX: K81.0 Acute cholecystitis (principal); R79.89 Other specified abnormal findings of blood chemistry; G43.909 Migraine, unspecified, not intractable, without status migrainosus; R73.01 Impaired fasting glucose; E55.9 Vitamin D deficiency, unspecified; J30.9 Allergic rhinitis, unspecified; E28.2 Polycystic ovarian syndrome; G47.00 Insomnia, unspecified; F32.9 Major depressive disorder, single episode, unspecified; F41.9 Anxiety disorder, unspecified; E66.01 Morbid (severe) obesity due to excess calories; Z68.42 Body mass index [BMI] 45.0-49.9, adult | CPT/HCPCS: 96127; 99212 ==

== ENCOUNTER 2025-06-01 12:54 | Outpatient (AMB) | payer MEDICARE, MEDICAID, SELFPAY ==
--- NOTE | 2025-06-01 13:07 | A.OFFVIS_ITS ---
Vital Signs 06/01/25 13:11 Height 5 ft 6 in Weight 296 lb BMI 47.8 BP 126/65 Blood Pressure Location Rt radial Position Sitting Pulse 72 Intake Visit Reasons: 3wk follow up s/p clau Intake Note: Patient is seen in office for 3 weeks follow up visit, post lap clau. Patient c/o: no concerns. Reports incisions heaed well. 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 Has been experiencing increased burping, feeling like she could vomit but not being able to has been somewhat bothersome. Has returned to work as of May 18 states she had to do heavy lifting as required by her job sometimes struggles with this but she feels okay. [facility] Medical History JUNAID III (cervical intraepithelial neoplasia grade III) with severe dysplasia History of COVID-19 IAN (obstructive sleep apnea) Morbid obesity with BMI of 50.0-59.9, adult Allergic rhinitis Migraine Morbid obesity with BMI of 45.0-49.9, adult Depression Anxiety Insomnia Elevated LFTs PCOS (polycystic ovarian syndrome) Impaired fasting glucose Surgical History Status post laparoscopic cholecystectomy (05/04/25) History of esophagogastroduodenoscopy (EGD) Hx of colonoscopy Previous section Family History Father No problems noted. Mother Diverticulitis Other Substance abuse Social History Household Members: None Housing: Apartment Are you a primary child caregiver to a significant other at home: No Do you presently have visiting nurse or other home services: No Alcohol intake: former Patient Tobacco Use Status: Never used Tobacco Tobacco use type: Cigarette e-Cigarette/Vaping Use: Never Used Second Hand Smoke Exposure: No Advance Directives Date on File: 04/14/20 service: No Current occupational status: employed Cognitive needs: No Hearing needs: No Vision needs: No Female Reproductive History Menstrual Age of Menarche: 12 Physical Exam Vital Signs: Last Vital Signs Pulse 72 06/01/25 13:11 BP 126/65 06/01/25 13:11 BMI result Body Mass Index 47.8 Const General: comfortable and no acute distress Orientation/consciousness: patient oriented x3 GI Other: Incision sites well healed Inspection: No distended Palpation (GI): Soft to palpation and nontender Neuro General: patient oriented x3 Assessment & Plan Assessment & Plan (1) Status post laparoscopic cholecystectomy: Onset Date: 05/04/25 Comment: Laparoscopic cholecystectomy 05/04/2025. Gigi Trejo Code(s): Z90.49 - Acquired absence of other specified parts of digestive tract Category: Surgical Plan 45-year-old female s/p laparoscopic cholecystectomy on 05/04/[address] Lopez returning to the office for follow up. Overall doing well, experience some increased burping, dyspepsia. Reassured her that this is not uncommon to have these symptoms after removal of gallbladder, recommended trying over-the-c ounter omeprazole (Prilosec) for 2 weeks to see if this helps her symptoms. Otherwise she is doing well. She has returned to work has had to do some heavy lifting which she found some difficulty with the especially on the 1st few days but is tolerating it well currently On exam her abdomen is soft and benign, incision sites appear to be well healed, previous skin irritation from adhesive has resolved. There were no cellulitic changes suggestive of infection. She can continue with activity as tolerated. Can follow-up as needed with any concerns or questions. Coding Level of Care Code Global (55793) Diagnoses Status post laparoscopic cholecystectomy Z90.49
[2025-06-01 13:11] VITALS: BP 126/65; PULSE 72; BMI 47.8
== END 2025-06-01 13:48 | disposition home or self-care (01) ==
LOC: HO.HGS 12:56
PROVIDERS: PCP Internal Medicine
DX: Z90.49 Acquired absence of other specified parts of digestive tract (principal)
CPT/HCPCS: 99024

== ENCOUNTER → 2025-06-01 12:54 | Outpatient (BNVA) | payer MEDICARE, MEDICAID, SELFPAY | PROVIDERS: PCP Internal Medicine | DX: R10.9 Unspecified abdominal pain (principal); Z98.890 Other specified postprocedural states; Z90.49 Acquired absence of other specified parts of digestive tract | CPT/HCPCS: 99212 ==

== ENCOUNTER 2025-07-11 13:52 | Outpatient (AMB) | payer MEDICARE, MEDICAID, SELFPAY ==
--- NOTE | 2025-07-11 14:10 | A.OFFPC_ITS ---
Vital Signs 07/11/25 14:12 Height 5 ft 6 in Weight 293 lb 6 oz BMI 47.3 BP 140/72 H Blood Pressure Location Lt brachial Position Sitting Pulse 73 Pulse Source Pulse Oximeter Temp 99.1 F Temp Source Oral Pulse Oximetry (%) 100 Oxygen Delivery Method Room Air Intake Visit Reasons: SOB/wheezing Intake Note: Patient is here to follow up on SOB, Wheezing, Nasal congestion, coughing. No fever or chills. Started on 07/06/25. Home covid neg. Melting Operator Required: No Bulk Mail Clerk: Not Required per policy Accompanied by: Self / Same As Patient Allergies No Known Allergies Allergy (Verified 07/11/25 14:26) Medication List - Last Reconciled 07/11/25 by RUSTY Mendenhall cetirizine 10 mg PO DAILY PRN 90 days cholecalciferol (vitamin D3) 25 mcg PO DAILY clonidine HCl 0.1 mg PO BEDTIME docusate sodium (Colace) 100 mg PO BID escitalopram oxalate 10 mg PO DAILY 90 days ibuprofen 800 mg PO TID PRN magnesium glycinate 300 mg PO BEDTIME PRN metformin ER 1,000 mg (2 x 500 mg) PO BID Tobacco use date assessed: 07/11/25 Dental Screening Dental Screen Date: 05/25/25 HPI SOB/wheezing HPI Details Patient is a 45-year-old female with significant past medical history of morbid obesity, migraine Presenting with complaints of 6 days history cough Patient reports that on she woke up with a pounding headache and felt sick with nasal congestion, mild sore throat and ear fullness, denies body aches, denies GI symptoms. She states that she attributed the headache to her history of migraines. After noticing that her symptoms were increasing the patient reports that she did a at home COVID test that was negative. In addition, she went to urgent care and was turned away due to staffing issues. For treatment she tried ibuprofen DayQuil during the day and NyQuil at night with no resolution The patient also reports shortness of breath with exertion then auditory wheezing on and off [facility] Medical History JUNAID III (cervical intraepithelial neoplasia grade III) with severe dysplasia History of COVID-19 IAN (obstructive sleep apnea) Morbid obesity with BMI of 50.0-59.9, adult Allergic rhinitis Migraine Morbid obesity with BMI of 45.0-49.9, adult Depression Anxiety Insomnia Elevated LFTs PCOS (polycystic ovarian syndrome) Impaired fasting glucose Surgical History Status post laparoscopic cholecystectomy (05/04/25) History of esophagogastroduodenoscopy (EGD) Hx of colonoscopy Previous section Family History Father No problems noted. Mother Diverticulitis Other Substance abuse Social History Household Members: None Housing: Apartment Are you a primary health care social worker to a significant other at home: No Do you presently have visiting nurse or other home services: No Alcohol intake: former Patient Tobacco Use Status: Never used Tobacco Tobacco use type: Cigarette e-Cigarette/Vaping Use: Never Used Second Hand Smoke Exposure: No Advance Directives Date on File: 04/14/20 service: No Current occupational status: employed Cognitive needs: No Hearing needs: No Vision needs: No Female Reproductive History Menstrual Age of Menarche: 12 Questionnaire Thrive Questionnaire Date Thrive assessed: 05/25/25 I am a: Patient What is your living situation today?: I have a steady place to live Within the past 12 months, did the food you bought not last and you didn't have the money to get more?: Never true Within the past 12 months, did you worry whether your food would run out before you got money to buy more?: Never true Do you have trouble paying for medicines?: No Do you have trouble getting transportation to medical appointments?: No Do you have trouble paying your heating and electricity bill?: No Do you have trouble taking care of your child, family member or friend?: No Do you have trouble with day-to-day activities such as bathing, preparing meals, shopping, managing finances, etc.?: I choose not to answer this question Are you currently unemployed and looking for a job?: No Are you interested in more education?: No Currently or been in a relationship where the following occur: No concerns repor jess THRIVE Score: 0 MARCK-7 AMB Questionnaire MARCK-7 Date MARCK - 7 assessed: 05/25/25 Source: Developed by Drs. Nathan Peck, Janie Apodaca, Clive Powers and colleagues, with an educational odette from [employer]. Review of Systems Const Denies body aches, Denies chills, Denies fever(s), Reports headache(s) (On and off) and Denies poor appetite Eyes Reports no additional complaints ENT Denies dysphagia, Denies dizziness, Reports headache(s) (On and off), Reports nasal congestion, Denies odynophagia, Reports sore throat (Mild) and Reports other (Ear fullness) Card Denies chest pain, Denies syncope, Denies edema, Denies irregular heart rhythm, Denies lightheadedness, Denies dyspnea and Reports dyspnea on exertion Resp Reports cough (Nonproductive,), Denies dyspnea, Reports dyspnea on exertion and Reports wheezing (Auditory on and off) GI Denies abdominal pain, Denies constipation, Denies dysphagia, Denies diarrhea, Denies nausea, Denies odynophagia and Denies vomiting Reports no additional complaints Musc Reports no additional complaints and Denies abnormal gait Skin/Breast Reports system reviewed and no additional complaints, except as documented Neuro Denies abnormal gait, Denies dizziness, Denies syncope and Reports headache(s) (On and off) Psych Reports no additional complaints Aller/Immun Reports wheezing (Auditory on and off) Physical exam (Primary Care) Vital Signs: Last Vital Signs Temp 96.8 F 07/11/25 14:12 Pulse 73 07/11/25 14:12 BP 140/72 H 07/11/25 14:12 Pulse Ox 100 07/11/25 14:12 Oxygen Delivery Method Room Air 07/11/25 14:12 BMI result Body Mass Index 47.3 Tobacco/Smoking Status: Tobacco use Status Tobacco use date assessed 07/11/25 07/11/25 14:20 Patient Tobacco Use Status Never used Tobacco 07/11/25 14:20 Tobacco use type Cigarette 07/11/25 14:20 e-Cigarette/Vaping Use Never Used 07/11/25 14:20 Thrive Assessment: Date of Thrive Assessment Date Thrive assessed 05/25/25 07/11/25 14:20 Currently or been in a relationship where the following occur: No concerns reported Const General: cooperative, healthy appearing, comfortable and no acute distress Orientation/consciousness: patient oriented x3 [facility] Head: Yes normocephalic Ears: hearing grossly normal bilaterally General nose exam: Abnormal mucous membranes and turbinates present boggy bilateral and erythematous bilateral and Nasal discharge present purulent on the left Eyes General: appearance normal, both eyes and all related structures Conjunctivae: conjunctivae normal Neck Neck: Yes full ROM and Yes no lymphadenopathy Resp Effort & Inspection: normal respiratory effort Auscultation: clear to auscultation bilaterally, no crackles, no rales, no rhonchi, no wheezes and diminished lung sounds bilateral in the lower lung f ields Cardio Rate: regular rate Rhythm: regular rhythm GI Palpation (GI): Soft to palpation, nontender and No hepatosplenomegaly present Auscultation: normal bowel sounds Skin General skin exam: no rashes or lesions noted Neuro General: patient oriented x3 Gait exam (Neuro): Normal gait present Extrem General: Yes normal to inspection, Yes full ROM and No edema Psych Affect: normal affect Attitude: cooperative Insight: Good insight present (Psych) Judgement: Good judgement present (Psych) Coding Level of Care Code Est Pt Level 4 (26939) Diagnoses Upper respiratory tract infection, unspecified type J06.9 URI type: unspecified URI Rhinosinusitis J32.9 Acute cough R05.1 Cough type: acute Wheezing R06.2 Time Spent (min) 29 Assessment & Plan Assessment & Plan (1) Upper respiratory infection: Code(s): J06.9 - Acute upper respiratory infection, unspecified Category: Medical Qualifiers: URI type: unspecified URI Qualified Code(s): J06.9 - Acute upper respiratory infection, unspecified (2) Rhinosinusitis: Code(s): J32.9 - Chronic sinusitis, unspecified Category: Medical (3) Cough: Code(s): R05.9 - Cough, unspecified Category: Medical Qualifiers: Cough type: acute Qualified Code(s): R05.1 - Acute cough (4) Wheezing: Code(s): R06.2 - Wheezing Category: Medical Plan Respiratory panel was ordered to further evaluate other viral infections. Bilateral nasal cavities are inflamed and swollen with boggy turbinates. Nasal passage has purulent drainage. Breath sounds are clear and diminished in the lower bases. We will treat the patient for sinus infection, Z-Scar and prednisone tapered were ordered. Benzonatate 100 mg b.i.d. ordered for a cough. The patient does not encouraged to use Zyrtec 10 mg p.r.n. prescription refilled. Encouraged p.o. fluids. To address wheezing albuterol inhaler as needed was ordered. The patient was encouraged to follow up with office if symptoms are not decreasing in 3 days. Orders: Orders SARS-CoV2/FLU/RSV 07/11/25 J06.9 - Acute upper respiratory infection, unspecified Medications: New azithromycin For 250 mg dose pack: take 500 mg today (day 1), then 250 mg for 4 days (days 2-5) PO 6 tabs 0RF prednisone see taper instructions take 4 tabs x 2 days, then 3 tabs x 2 days, then 2 tabs x 2 days, then 1 tab x 2 days =20 tabs for eight day period. 10 mg PO DIRECTED 20 tabs 0RF benzonatate 100 mg PO BID PRN 30 caps 0RF cough 14 days albuterol sulfate 90 mcg/actuation (Ventolin HFA) 2 puffs inhalation Q4-6H PRN 6.7 grams 1RF shortness of breath or wheezing Refilled cetirizine 10 mg PO DAILY PRN 90 tabs 1RF allergy symptoms 90 days J30.9 - Allergic rhinitis, unspecified
[2025-07-11 14:12] VITALS: BP 140/72; PULSE 73; TEMP 37.3; O2SAT 100; BMI 47.3
== END 2025-07-11 15:08 | disposition home or self-care (01) ==
LOC: HO.HMCH 13:53
PROVIDERS: PCP Internal Medicine
DX: J06.9 Acute upper respiratory infection, unspecified (principal); J32.9 Chronic sinusitis, unspecified; R05.1 Acute cough; R06.2 Wheezing

== ENCOUNTER → 2025-07-11 13:52 | Outpatient (BNVA) | payer MEDICARE, MEDICAID, SELFPAY | PROVIDERS: PCP Internal Medicine | DX: J06.9 Acute upper respiratory infection, unspecified (principal); J32.9 Chronic sinusitis, unspecified; R05.1 Acute cough; R06.2 Wheezing | CPT/HCPCS: 99212 ==